=== PATIENT | female | born 1960 | race Caucasian/White ===

== ENCOUNTER → 2016-08-13 | Outpatient (REF) | payer OTHER ==
[2016-08-13 18:15] LABS: ALKALINE PHOSPHATASE 40 U/L (45-117); ALT/SGPT 60 U/L (12-78); ANION GAP 8 MEQ/L (8-16); AST/SGOT 34 U/L (15-37); BILIRUBIN,TOTAL 0.3 MG/DL (0.2-1.0); BLOOD UREA NITROGEN 15 MG/DL (7-18); CALCIUM LEVEL 9.3 MG/DL (8.5-10.1); CARBON DIOXIDE LEVEL 30 MEQ/L (21-32); CHLORIDE LEVEL 93 MEQ/L (98-107); CREATININE FOR GFR 0.69 MG/DL (0.55-1.02); GLOMERULAR FILTRATION RATE > 60.0 (>51); GLUCOSE, FASTING 87 MG/DL (70-105); POTASSIUM SERUM 4.1 MEQ/L (3.5-5.1); SODIUM LEVEL 131 MEQ/L (136-145); TOTAL PROTEIN 6.5 GM/DL (6.4-8.2)
== END ==
LOC: M LABNEURO 16:45
PROVIDERS: ATTEND Psychiatry & Neurology Neurology
DX: Z51.81 Encounter for therapeutic drug level monitoring (principal)

== ENCOUNTER → 2016-10-15 | Outpatient (REF) | payer OTHER | LOC: M LAB REF 13:31 | PROVIDERS: ATTEND Nurse Practitioner Adult Health | DX: G43.009 Migraine without aura, not intractable, without status migrainosus (principal) ==

== ENCOUNTER → 2016-10-23 | Outpatient (REF) | payer OTHER | LOC: M LAB REF 13:25 | PROVIDERS: ATTEND Internal Medicine | DX: G43.009 Migraine without aura, not intractable, without status migrainosus (principal) ==

== ENCOUNTER → 2016-10-30 | Outpatient (REF) | payer OTHER | LOC: M LAB REF 17:24 | PROVIDERS: ATTEND Nurse Practitioner Adult Health | DX: E87.1 Hypo-osmolality and hyponatremia (principal) ==

== ENCOUNTER 2017-06-24 12:54 | Inpatient (IN) | payer OTHER ==
[2017-06-24] MEDS: NS 1,000 ML IV ×4 (13:15→17:50)
[2017-06-24 14:01] LABS: EOS % 0.6 % (0.0-3.0); HEMATOCRIT 31.8 % (36.0-47.0); IMMATURE GRANULOCYTE % 2.2 % (0-3.0); MEAN CORPUSCULAR HEMOGLOBIN 32.6 pg (27.0-33.0); MEAN CORPUSCULAR HGB CONC 34.6 g/dl (32.0-36.5); MEAN CORPUSCULAR VOLUME 94.4 fl (80.0-96.0); MONO # 0.1 10^3/uL (0.0-0.8); MONO % 3.9 % (0.0-5.0); NEUTROPHILS # 1.6 10^3/uL (1.8-7.7); NEUTROPHILS % 88.3 % (36.0-66.0); PLATELET COUNT, AUTOMATED 104 10^3/uL (150-450); RED BLOOD COUNT 3.37 10^6/uL (4.00-5.40); RED CELL DISTRIBUTION WIDTH 13.2 % (11.5-14.5)
[2017-06-24 14:25] LABS: ALBUMIN 2.8 GM/DL (3.2-5.2); ALBUMIN/GLOBULIN RATIO 1.33 (1.00-1.93); ALKALINE PHOSPHATASE 43 U/L (45-117); ALT/SGPT 94 U/L (12-78); ANION GAP 7 MEQ/L (8-16); AST/SGOT 93 U/L (7-37); BILIRUBIN,DIRECT 0.1 MG/DL (0.0-0.2); BILIRUBIN,TOTAL 0.4 MG/DL (0.2-1.0); BLOOD UREA NITROGEN 11 MG/DL (7-18); CALCIUM LEVEL 8.1 MG/DL (8.5-10.1); CARBON DIOXIDE LEVEL 24 MEQ/L (21-32); CHLORIDE LEVEL 102 MEQ/L (98-107); CREATININE FOR GFR 0.73 MG/DL (0.55-1.30); GLOMERULAR FILTRATION RATE > 60.0 (>51); GLUCOSE, FASTING 86 MG/DL (70-100); LIPASE 223 U/L (73-393); POTASSIUM SERUM 3.6 MEQ/L (3.5-5.1); SODIUM LEVEL 133 MEQ/L (136-145); TOTAL PROTEIN 4.9 GM/DL (6.4-8.2)
[2017-06-24 14:30] LABS: LYMPH # 0.1 10^3/uL (1.5-4.5); POS COUNT POS FLAG; POSITIVE DIFF POS FLAG; WHITE BLOOD COUNT 1.8 10^3/uL (4.0-10.0)
[2017-06-24 15:22] LABS: LACTIC ACID SEPSIS PROTOCOL 3.7 MMOL/L (0.4-2.0)
[2017-06-24 16:05] LABS: ABG BASE EXCESS -5.9 (-2.0-2.0); ABG O2 SATURATION 89.1 % (95.0-99.0); ABG PARTIAL PRESSURE CO2 30.5 mmHg (35.0-45.0); ABG PARTIAL PRESSURE O2 59.2 mmHg (75.0-100.0); ABG STANDARD HCO3 19.5 MEQ/L (22.0-26.0)
[2017-06-24] MEDS: PROMETHAZINE INJ 25 MG/ML VIAL (J2550) IV (16:15)
[2017-06-24] MEDS: IMIPENEM/CILASTATIN 500 MG in D5W MINI-BAG PLUS 100 ML IV (16:15)
[2017-06-24] MEDS: NS 500 ML IV (16:16)
[2017-06-24] MEDS ORDERED: ISOVUE-370 76% 100ML VIAL (Q9967) As Ordered (16:17)
[2017-06-24 16:47] LABS: CK-MB VALUE MASS 2.4 NG/ML (<3.6); CPK CREATINE PHOSPHOKINASE 92 U/L (26-192); TROPONIN I < 0.02 NG/ML (< 0.10)
[2017-06-24 18:27] LABS: APPEARANCE, URINE HAZY (CLEAR); BACTERIA, URINE AUTO NEGATIVE (NEGATIVE); BILIRUBIN, URINE AUTO NEGATIVE (NEGATIVE); BLOOD, URINE BLOOD 1+ (NEGATIVE); COLOR, URINE YELLOW (YELLOW); GLUCOSE, URINE (UA) AUTO NEGATIVE (NEGATIVE); KETONE, URINE AUTO NEGATIVE (NEGATIVE); LEUKOCYTE ESTERASE, URINE AUTO NEGATIVE (NEGATIVE); MUCUS, URINE SMALL (NEGATIVE); NITRITE, URINE AUTO NEGATIVE (NEGATIVE); PROTEIN, URINE AUTO NEGATIVE (NEGATIVE); RBC, URINE AUTO 1 /HPF (0-3); SPECIFIC GRAVITY URINE AUTO 1.032 (1.002-1.035); SQUAMOUS EPITHELIAL CELL UR AU 0 /HPF (0-6); UROBILINOGEN, URINE AUTO 0.2 mg/dL (0.0-2.0); WBC, URINE AUTO 1 /HPF (0-3)
[2017-06-24 19:22] LABS: C REACTIVE PROTEIN QUANTITATIV 3.46 MG/DL (0.00-0.30); CK-MB VALUE MASS 4.4 NG/ML (<3.6); CPK CREATINE PHOSPHOKINASE 96 U/L (26-192); MB/CK RELATIVE INDEX 4.58 (< OR =4)
[2017-06-24] MEDS: ONDANSETRON 4MG/2ML VIAL (J2405) IV (20:13)
[2017-06-24] MEDS: LevoFLOXacin IV 750 MG in APPROPRIATE DILUENT 1 EA IV (20:14)
[2017-06-24] MEDS: ACETAMINOPHEN TAB 650MG DOSE (2X325MG) PO (20:14)
[2017-06-24] MEDS: HYDROCORTISONE 100 MG/2 ML VIAL (J1720) IV (20:14)
[2017-06-24] MEDS: VANCOMYCIN HCL 1,000 MG, VIAL MATE ADAPTER 1 EACH in D5W 250 ML IV (23:00)
[2017-06-24 23:42] LABS: BEDSIDE GLUCOSE 120 MG/DL (70-105)
[2017-06-25] MEDS: NS 1,000 ML IV (00:30)
[2017-06-25] MEDS: MONTELUKAST 10 MG TAB PO ×2 (02:48→20:04)
[2017-06-25] MEDS: OMEGA-3 1050MG CAPSULE PO ×2 (02:49→09:22)
[2017-06-25] MEDS: DIVALPROEX 500 MG TAB PO ×2 (02:49→20:04)
[2017-06-25] MEDS: PRAVASTATIN 20 MG TAB PO ×2 (02:49→20:05)
[2017-06-25] MEDS: ASCORBIC ACID 250 MG TAB PO ×3 (02:49→20:04)
[2017-06-25 05:04] LABS: HEMATOCRIT 33.7 % (36.0-47.0); HEMOGLOBIN 11.6 g/dl (12.0-15.5); MEAN CORPUSCULAR HEMOGLOBIN 32.3 pg (27.0-33.0); MEAN CORPUSCULAR HGB CONC 34.4 g/dl (32.0-36.5); MEAN CORPUSCULAR VOLUME 93.9 fl (80.0-96.0); PLATELET COUNT, AUTOMATED 101 10^3/uL (150-450); RED BLOOD COUNT 3.59 10^6/uL (4.00-5.40); RED CELL DISTRIBUTION WIDTH 13.2 % (11.5-14.5); WHITE BLOOD COUNT 4.2 10^3/uL (4.0-10.0)
[2017-06-25 05:26] LABS: ALBUMIN 2.4 GM/DL (3.2-5.2); ALKALINE PHOSPHATASE 38 U/L (45-117); ALT/SGPT 78 U/L (12-78); ANION GAP 5 MEQ/L (8-16); AST/SGOT 58 U/L (7-37); BILIRUBIN,TOTAL 0.4 MG/DL (0.2-1.0); BLOOD UREA NITROGEN 8 MG/DL (7-18); C REACTIVE PROTEIN QUANTITATIV 9.42 MG/DL (0.00-0.30); CALCIUM LEVEL 7.3 MG/DL (8.5-10.1); CARBON DIOXIDE LEVEL 27 MEQ/L (21-32); CHLORIDE LEVEL 104 MEQ/L (98-107); CREATININE FOR GFR 0.69 MG/DL (0.55-1.30); GLOMERULAR FILTRATION RATE > 60.0 (>51); GLUCOSE, FASTING 103 MG/DL (70-100); MAGNESIUM LEVEL 1.7 MG/DL (1.8-2.4); POTASSIUM SERUM 3.8 MEQ/L (3.5-5.1); SODIUM LEVEL 136 MEQ/L (136-145); TOTAL PROTEIN 4.8 GM/DL (6.4-8.2)
[2017-06-25] MEDS: MAG SULF 1GM/100ML (MAG RUN) 1 GM in APPROPRIATE DILUENT 1 EA IV ×2 (06:15→09:21)
[2017-06-25 06:18] LABS: CK-MB VALUE MASS 13.9 NG/ML (<3.6); CPK CREATINE PHOSPHOKINASE 534 U/L (26-192)
[2017-06-25 06:20] LABS: TROPONIN I 1.96 NG/ML (< 0.10)
[2017-06-25 07:30] LABS: THYROID STIMULATING HORMONE 0.781 uIU/ML (0.358-3.740)
[2017-06-25] MEDS: ENOXAPARIN 30 MG/0.3 ML SYR (J1650) SC (09:21)
[2017-06-25] MEDS: SODIUM CHLORIDE NASAL 0.65% SPRAY BTL (OCEAN) (09:22)
[2017-06-25] MEDS: ASPIRIN 81 MG ENTERIC TAB PO (09:23)
[2017-06-25] MEDS: LORATADINE 10 MG TAB PO (09:23)
[2017-06-25] MEDS: CitaloPRAM (CeleXA) 20 MG TAB PO (09:23)
[2017-06-25] MEDS: VITAMIN D 1,000 INTERNATIONAL UNITS TABLET PO (09:23)
[2017-06-25] MEDS: DIVALPROEX 250 MG TAB PO (09:24)
[2017-06-25] MEDS: OCUVITE 1 TAB PO (09:24)
[2017-06-25 09:39] LABS: LACTIC ACID SEPSIS PROTOCOL 1.8 MMOL/L (0.4-2.0)
[2017-06-25 11:09] LABS: CK-MB VALUE MASS 12.7 NG/ML (<3.6); CPK CREATINE PHOSPHOKINASE 514 U/L (26-192); MB/CK RELATIVE INDEX 2.47 (< OR =4)
[2017-06-25 11:13] LABS: TROPONIN I 1.74 NG/ML (< 0.10)
[2017-06-25] MEDS: ACETAMINOPHEN TAB 650MG DOSE (2X325MG) PO ×2 (12:34→20:04)
[2017-06-25] MEDS: LevoFLOXacin IV 750 MG in APPROPRIATE DILUENT 1 EA IV (17:18)
[2017-06-25] MEDS: VANCOMYCIN HCL 1,000 MG, VIAL MATE ADAPTER 1 EACH in D5W 250 ML IV (21:29)
[2017-06-26] MEDS: ACETAMINOPHEN TAB 650MG DOSE (2X325MG) PO ×3 (04:02→14:51)
[2017-06-26 05:26] LABS: HEMATOCRIT 30.3 % (36.0-47.0); HEMOGLOBIN 10.6 g/dl (12.0-15.5); MEAN CORPUSCULAR HEMOGLOBIN 32.3 pg (27.0-33.0); MEAN CORPUSCULAR VOLUME 92.4 fl (80.0-96.0); PLATELET COUNT, AUTOMATED 125 10^3/uL (150-450); RED BLOOD COUNT 3.28 10^6/uL (4.00-5.40); RED CELL DISTRIBUTION WIDTH 13.5 % (11.5-14.5)
[2017-06-26 05:47] LABS: C REACTIVE PROTEIN QUANTITATIV 5.29 MG/DL (0.00-0.30)
[2017-06-26] MEDS: VANCOMYCIN HCL 1,000 MG, VIAL MATE ADAPTER 1 EACH in D5W 250 ML IV ×3 (05:49→21:28)
[2017-06-26 05:52] LABS: ALBUMIN 2.5 GM/DL (3.2-5.2); ALBUMIN/GLOBULIN RATIO 1.09 (1.00-1.93); ALKALINE PHOSPHATASE 39 U/L (45-117); ALT/SGPT 64 U/L (12-78); ANION GAP 6 MEQ/L (8-16); AST/SGOT 39 U/L (7-37); BILIRUBIN,TOTAL 0.2 MG/DL (0.2-1.0); BLOOD UREA NITROGEN 6 MG/DL (7-18); CALCIUM LEVEL 7.8 MG/DL (8.5-10.1); CARBON DIOXIDE LEVEL 27 MEQ/L (21-32); CHLORIDE LEVEL 107 MEQ/L (98-107); CREATININE FOR GFR 0.51 MG/DL (0.55-1.30); GLOMERULAR FILTRATION RATE > 60.0 (>51); GLUCOSE, FASTING 101 MG/DL (70-100); MAGNESIUM LEVEL 2.2 MG/DL (1.8-2.4); POTASSIUM SERUM 3.6 MEQ/L (3.5-5.1); SODIUM LEVEL 140 MEQ/L (136-145); TOTAL PROTEIN 4.8 GM/DL (6.4-8.2)
[2017-06-26] MEDS ORDERED: VANCOMYCIN HCL 1,000 MG, VIAL MATE ADAPTER 1 EACH in D5W 250 ML IV (06:00)
[2017-06-26] MEDS: LORATADINE 10 MG TAB PO (09:00)
[2017-06-26] MEDS: CitaloPRAM (CeleXA) 10 MG TABLET PO (09:00)
[2017-06-26] MEDS: PANTOPRAZOLE 20 MG TAB PO (09:00)
[2017-06-26] MEDS: SODIUM CHLORIDE NASAL 0.65% SPRAY BTL (OCEAN) (09:14)
[2017-06-26] MEDS: ASPIRIN 81 MG ENTERIC TAB PO (09:14)
[2017-06-26] MEDS: ASCORBIC ACID 250 MG TAB PO ×2 (09:14→21:34)
[2017-06-26] MEDS: ENOXAPARIN 30 MG/0.3 ML SYR (J1650) SC (09:14)
[2017-06-26] MEDS: SYMBICORT 80/4.5MCG INHALER 6GM INH ×2 (12:10→21:18)
[2017-06-26] MEDS: DOCUSATE SODIUM 100 MG CAP PO ×2 (14:26→21:28)
[2017-06-26] MEDS: LevoFLOXacin IV 750 MG in APPROPRIATE DILUENT 1 EA IV (18:36)
[2017-06-26] MEDS: FIORICET TAB PO (18:44)
[2017-06-26] MEDS: MONTELUKAST 10 MG TAB PO (21:00)
[2017-06-26] MEDS: DIVALPROEX 500 MG TAB PO (21:28)
[2017-06-26] MEDS: ONDANSETRON 4MG/2ML VIAL (J2405) IV (21:28)
[2017-06-26 21:43] LABS: VANCOMYCIN LEVEL TROUGH 11.4 UG/ML (10.0-20.0)
[2017-06-27] MEDS: VANCOMYCIN HCL 500 MG in D5W MINI-BAG PLUS 100 ML IV (02:37)
[2017-06-27] MEDS: VANCOMYCIN HCL 1,000 MG, VIAL MATE ADAPTER 1 EACH in D5W 250 ML IV (05:38)
[2017-06-27 06:06] LABS: HEMATOCRIT 33.3 % (36.0-47.0); HEMOGLOBIN 11.7 g/dl (12.0-15.5); MEAN CORPUSCULAR HEMOGLOBIN 32.1 pg (27.0-33.0); MEAN CORPUSCULAR HGB CONC 35.1 g/dl (32.0-36.5); MEAN CORPUSCULAR VOLUME 91.2 fl (80.0-96.0); PLATELET COUNT, AUTOMATED 180 10^3/uL (150-450); RED BLOOD COUNT 3.65 10^6/uL (4.00-5.40); RED CELL DISTRIBUTION WIDTH 13.2 % (11.5-14.5); WHITE BLOOD COUNT 5.8 10^3/uL (4.0-10.0)
[2017-06-27 06:26] LABS: ALBUMIN 2.6 GM/DL (3.2-5.2); ALBUMIN/GLOBULIN RATIO 0.93 (1.00-1.93); ALKALINE PHOSPHATASE 37 U/L (45-117); ALT/SGPT 53 U/L (12-78); ANION GAP 7 MEQ/L (8-16); AST/SGOT 25 U/L (7-37); BILIRUBIN,TOTAL 0.3 MG/DL (0.2-1.0); BLOOD UREA NITROGEN 5 MG/DL (7-18); C REACTIVE PROTEIN QUANTITATIV 2.27 MG/DL (0.00-0.30); CALCIUM LEVEL 8.3 MG/DL (8.5-10.1); CARBON DIOXIDE LEVEL 26 MEQ/L (21-32); CHLORIDE LEVEL 102 MEQ/L (98-107); GLOMERULAR FILTRATION RATE > 60.0 (>51); GLUCOSE, FASTING 99 MG/DL (70-100); MAGNESIUM LEVEL 1.9 MG/DL (1.8-2.4); POTASSIUM SERUM 3.8 MEQ/L (3.5-5.1); SODIUM LEVEL 135 MEQ/L (136-145); TOTAL PROTEIN 5.4 GM/DL (6.4-8.2)
[2017-06-27] MEDS: SYMBICORT 80/4.5MCG INHALER 6GM INH ×2 (07:52→21:26)
[2017-06-27] MEDS: ASCORBIC ACID 250 MG TAB PO ×2 (08:46→20:22)
[2017-06-27] MEDS: PANTOPRAZOLE 20 MG TAB PO (08:46)
[2017-06-27] MEDS: DOCUSATE SODIUM 100 MG CAP PO ×2 (08:46→20:22)
[2017-06-27] MEDS: ASPIRIN 81 MG ENTERIC TAB PO (08:46)
[2017-06-27] MEDS: LORATADINE 10 MG TAB PO (08:47)
[2017-06-27] MEDS: ENOXAPARIN 30 MG/0.3 ML SYR (J1650) SC (08:47)
[2017-06-27] MEDS: SODIUM CHLORIDE NASAL 0.65% SPRAY BTL (OCEAN) (08:47)
[2017-06-27] MEDS: CitaloPRAM (CeleXA) 10 MG TABLET PO (08:47)
[2017-06-27] MEDS: METOCLOPRAMIDE INJ 10MG/2ML VIAL (J2765) IV (09:40)
[2017-06-27] MEDS: diphenhydrAMINE INJ 50MG/ML VIAL (J1200) IV (09:40)
[2017-06-27] MEDS: KETOROLAC 30 MG/ML VIAL (J1885) IV (09:41)
[2017-06-27] MEDS: ACETAMINOPHEN TAB 650MG DOSE (2X325MG) PO ×2 (13:31→18:09)
[2017-06-27] MEDS: MONTELUKAST 10 MG TAB PO (20:22)
[2017-06-27] MEDS: DIVALPROEX 500 MG TAB PO (20:22)
[2017-06-28] MEDS: ACETAMINOPHEN TAB 650MG DOSE (2X325MG) PO (04:17)
[2017-06-28 06:20] LABS: HEMATOCRIT 32.2 % (36.0-47.0); HEMOGLOBIN 11.2 g/dl (12.0-15.5); MEAN CORPUSCULAR HEMOGLOBIN 32.2 pg (27.0-33.0); MEAN CORPUSCULAR HGB CONC 34.8 g/dl (32.0-36.5); MEAN CORPUSCULAR VOLUME 92.5 fl (80.0-96.0); PLATELET COUNT, AUTOMATED 195 10^3/uL (150-450); RED BLOOD COUNT 3.48 10^6/uL (4.00-5.40); RED CELL DISTRIBUTION WIDTH 13.4 % (11.5-14.5); WHITE BLOOD COUNT 5.3 10^3/uL (4.0-10.0)
[2017-06-28 06:42] LABS: ALBUMIN 2.7 GM/DL (3.2-5.2); ALBUMIN/GLOBULIN RATIO 1.04 (1.00-1.93); ALKALINE PHOSPHATASE 38 U/L (45-117); ALT/SGPT 51 U/L (12-78); ANION GAP 7 MEQ/L (8-16); AST/SGOT 25 U/L (7-37); BILIRUBIN,TOTAL 0.2 MG/DL (0.2-1.0); BLOOD UREA NITROGEN 8 MG/DL (7-18); C REACTIVE PROTEIN QUANTITATIV 1.13 MG/DL (0.00-0.30); CALCIUM LEVEL 8.4 MG/DL (8.5-10.1); CARBON DIOXIDE LEVEL 26 MEQ/L (21-32); CHLORIDE LEVEL 106 MEQ/L (98-107); CREATININE FOR GFR 0.54 MG/DL (0.55-1.30); GLOMERULAR FILTRATION RATE > 60.0 (>51); GLUCOSE, FASTING 88 MG/DL (70-100); MAGNESIUM LEVEL 2.2 MG/DL (1.8-2.4); POTASSIUM SERUM 3.8 MEQ/L (3.5-5.1); SODIUM LEVEL 139 MEQ/L (136-145); TOTAL PROTEIN 5.3 GM/DL (6.4-8.2)
[2017-06-28] MEDS: SYMBICORT 80/4.5MCG INHALER 6GM INH ×2 (08:01→20:55)
[2017-06-28] MEDS: ASPIRIN 81 MG ENTERIC TAB PO (08:36)
[2017-06-28] MEDS: CitaloPRAM (CeleXA) 10 MG TABLET PO (08:36)
[2017-06-28] MEDS: SODIUM CHLORIDE NASAL 0.65% SPRAY BTL (OCEAN) (08:36)
[2017-06-28] MEDS: ASCORBIC ACID 250 MG TAB PO ×2 (08:36→20:08)
[2017-06-28] MEDS: PANTOPRAZOLE 20 MG TAB PO (08:36)
[2017-06-28] MEDS: ENOXAPARIN 30 MG/0.3 ML SYR (J1650) SC (08:36)
[2017-06-28] MEDS: DOCUSATE SODIUM 100 MG CAP PO ×2 (08:36→20:08)
[2017-06-28] MEDS: LORATADINE 10 MG TAB PO (08:36)
[2017-06-28] MEDS: MIRALAX *UNIT DOSE* 17GM PACKET PO (09:00)
[2017-06-28] MEDS: SUMAtriptan SUCCINATE 6 MG/0.5 ML VIAL SC (10:31)
[2017-06-28] MEDS: DIVALPROEX 500 MG TAB PO (20:07)
[2017-06-28] MEDS: MONTELUKAST 10 MG TAB PO (20:07)
[2017-06-28] MEDS: ACETAMINOPHEN 500 MG TAB PO (21:17)
[2017-06-29] MEDS: ACETAMINOPHEN 500 MG TAB PO ×2 (04:07→12:15)
[2017-06-29] MEDS: ANALGESIC BALM CRM 120 GM TOP ×5 (04:30→20:19)
[2017-06-29 06:00] LABS: HEMATOCRIT 32.5 % (36.0-47.0); HEMOGLOBIN 11.2 g/dl (12.0-15.5); MEAN CORPUSCULAR HEMOGLOBIN 32.4 pg (27.0-33.0); MEAN CORPUSCULAR HGB CONC 34.5 g/dl (32.0-36.5); MEAN CORPUSCULAR VOLUME 93.9 fl (80.0-96.0); PLATELET COUNT, AUTOMATED 219 10^3/uL (150-450); RED BLOOD COUNT 3.46 10^6/uL (4.00-5.40); RED CELL DISTRIBUTION WIDTH 13.9 % (11.5-14.5); WHITE BLOOD COUNT 5.6 10^3/uL (4.0-10.0)
[2017-06-29 06:25] LABS: ALBUMIN 2.8 GM/DL (3.2-5.2); ALBUMIN/GLOBULIN RATIO 1.08 (1.00-1.93); ALKALINE PHOSPHATASE 37 U/L (45-117); ALT/SGPT 97 U/L (12-78); ANION GAP 7 MEQ/L (8-16); AST/SGOT 64 U/L (7-37); BILIRUBIN,TOTAL 0.3 MG/DL (0.2-1.0); BLOOD UREA NITROGEN 9 MG/DL (7-18); C REACTIVE PROTEIN QUANTITATIV 0.68 MG/DL (0.00-0.30); CALCIUM LEVEL 8.4 MG/DL (8.5-10.1); CARBON DIOXIDE LEVEL 26 MEQ/L (21-32); CHLORIDE LEVEL 106 MEQ/L (98-107); CREATININE FOR GFR 0.61 MG/DL (0.55-1.30); GLOMERULAR FILTRATION RATE > 60.0 (>51); GLUCOSE, FASTING 89 MG/DL (70-100); MAGNESIUM LEVEL 2.1 MG/DL (1.8-2.4); POTASSIUM SERUM 3.9 MEQ/L (3.5-5.1); SODIUM LEVEL 139 MEQ/L (136-145); TOTAL PROTEIN 5.4 GM/DL (6.4-8.2)
[2017-06-29] MEDS: SYMBICORT 80/4.5MCG INHALER 6GM INH ×2 (07:58→21:17)
[2017-06-29] MEDS: ENOXAPARIN 30 MG/0.3 ML SYR (J1650) SC (09:02)
[2017-06-29] MEDS: ASCORBIC ACID 250 MG TAB PO ×2 (09:02→20:19)
[2017-06-29] MEDS: PANTOPRAZOLE 20 MG TAB PO (09:02)
[2017-06-29] MEDS: LORATADINE 10 MG TAB PO (09:02)
[2017-06-29] MEDS: CitaloPRAM (CeleXA) 10 MG TABLET PO (09:02)
[2017-06-29] MEDS: ASPIRIN 81 MG ENTERIC TAB PO (09:02)
[2017-06-29] MEDS: DOCUSATE SODIUM 100 MG CAP PO ×2 (09:03→20:19)
[2017-06-29] MEDS: SODIUM CHLORIDE NASAL 0.65% SPRAY BTL (OCEAN) (09:03)
[2017-06-29] MEDS: MONTELUKAST 10 MG TAB PO (20:18)
[2017-06-29] MEDS: DIVALPROEX 500 MG TAB PO (20:19)
[2017-06-30] MEDS: ACETAMINOPHEN 500 MG TAB PO (00:19)
[2017-06-30 06:29] LABS: HEMATOCRIT 33.4 % (36.0-47.0); HEMOGLOBIN 11.3 g/dl (12.0-15.5); MEAN CORPUSCULAR HEMOGLOBIN 31.6 pg (27.0-33.0); MEAN CORPUSCULAR HGB CONC 33.8 g/dl (32.0-36.5); MEAN CORPUSCULAR VOLUME 93.3 fl (80.0-96.0); PLATELET COUNT, AUTOMATED 241 10^3/uL (150-450); RED BLOOD COUNT 3.58 10^6/uL (4.00-5.40); RED CELL DISTRIBUTION WIDTH 13.9 % (11.5-14.5); WHITE BLOOD COUNT 6.3 10^3/uL (4.0-10.0)
[2017-06-30 06:46] LABS: ALBUMIN/GLOBULIN RATIO 1.07 (1.00-1.93); ALKALINE PHOSPHATASE 41 U/L (45-117); ALT/SGPT 99 U/L (12-78); ANION GAP 5 MEQ/L (8-16); AST/SGOT 52 U/L (7-37); BILIRUBIN,TOTAL 0.2 MG/DL (0.2-1.0); BLOOD UREA NITROGEN 12 MG/DL (7-18); CALCIUM LEVEL 8.5 MG/DL (8.5-10.1); CARBON DIOXIDE LEVEL 25 MEQ/L (21-32); CHLORIDE LEVEL 106 MEQ/L (98-107); CREATININE FOR GFR 0.61 MG/DL (0.55-1.30); GLOMERULAR FILTRATION RATE > 60.0 (>51); GLUCOSE, FASTING 92 MG/DL (70-100); POTASSIUM SERUM 4.3 MEQ/L (3.5-5.1); SODIUM LEVEL 136 MEQ/L (136-145); TOTAL PROTEIN 5.8 GM/DL (6.4-8.2)
[2017-06-30] MEDS: SYMBICORT 80/4.5MCG INHALER 6GM INH (07:25)
[2017-06-30] MEDS: DOCUSATE SODIUM 100 MG CAP PO (08:08)
[2017-06-30] MEDS: ASCORBIC ACID 250 MG TAB PO (08:08)
[2017-06-30] MEDS: PANTOPRAZOLE 20 MG TAB PO (08:08)
[2017-06-30] MEDS: ASPIRIN 81 MG ENTERIC TAB PO (08:08)
[2017-06-30] MEDS: LORATADINE 10 MG TAB PO (08:09)
[2017-06-30] MEDS: CitaloPRAM (CeleXA) 10 MG TABLET PO (08:09)
[2017-06-30] MEDS: ENOXAPARIN 30 MG/0.3 ML SYR (J1650) SC (08:09)
[2017-06-30] MEDS: SODIUM CHLORIDE NASAL 0.65% SPRAY BTL (OCEAN) (08:10)
[2017-06-30] MEDS: ANALGESIC BALM CRM 120 GM TOP (08:10)
== END 2017-06-30 11:29 | disposition home or self-care (01) | DRG 640 ==
LOC: M ICU 06-25 00:12 → M MSPAV 06-26 15:32 → M OR 06-25 09:52 → M ICU 06-25 10:02 → M ED 12:54 → M ED INP 17:50
DX: E86.1 Hypovolemia (principal); G93.41 Metabolic encephalopathy; I95.9 Hypotension, unspecified; E87.2 Acidosis; R79.89 Other specified abnormal findings of blood chemistry; G43.909 Migraine, unspecified, not intractable, without status migrainosus; G47.33 Obstructive sleep apnea (adult) (pediatric); E78.5 Hyperlipidemia, unspecified; H81.09 Meniere's disease, unspecified ear; M35.00 Sjogren syndrome, unspecified; N32.81 Overactive bladder; Z79.82 Long term (current) use of aspirin; Z79.899 Other long term (current) drug therapy; Z88.1 Allergy status to other antibiotic agents; Z88.2 Allergy status to sulfonamides; Z87.440 Personal history of urinary (tract) infections; Z99.89 Dependence on other enabling machines and devices

== ENCOUNTER 2017-07-23 14:53 | Emergency (ER) | payer OTHER ==
[2017-07-23 17:13] LABS: HEMATOCRIT 41.7 % (36.0-47.0); HEMOGLOBIN 14.5 g/dl (12.0-15.5); MEAN CORPUSCULAR HEMOGLOBIN 32.4 pg (27.0-33.0); MEAN CORPUSCULAR HGB CONC 34.8 g/dl (32.0-36.5); MEAN CORPUSCULAR VOLUME 93.1 fl (80.0-96.0); PLATELET COUNT, AUTOMATED 206 10^3/uL (150-450); RED BLOOD COUNT 4.48 10^6/uL (4.00-5.40); RED CELL DISTRIBUTION WIDTH 13.3 % (11.5-14.5); WHITE BLOOD COUNT 5.9 10^3/uL (4.0-10.0)
[2017-07-23] MEDS: NS 1,000 ML IV (17:20)
[2017-07-23] MEDS: KETOROLAC 30 MG/ML VIAL (J1885) IV (18:18)
[2017-07-23] MEDS: METOCLOPRAMIDE INJ 10MG/2ML VIAL (J2765) IV (18:18)
[2017-07-23] MEDS: diphenhydrAMINE INJ 50MG/ML VIAL (J1200) IV (18:19)
[2017-07-23 18:23] LABS: ANION GAP 5 MEQ/L (8-16); BLOOD UREA NITROGEN 9 MG/DL (7-18); CALCIUM LEVEL 8.9 MG/DL (8.5-10.1); CARBON DIOXIDE LEVEL 27 MEQ/L (21-32); CHLORIDE LEVEL 99 MEQ/L (98-107); CREATININE FOR GFR 0.63 MG/DL (0.55-1.30); GLOMERULAR FILTRATION RATE > 60.0 (>51); GLUCOSE, FASTING 94 MG/DL (70-100); POTASSIUM SERUM 4.2 MEQ/L (3.5-5.1); SODIUM LEVEL 131 MEQ/L (136-145)
== END 2017-07-23 19:40 | disposition home or self-care (01) ==
LOC: M ED 14:53
DX: G43.909 Migraine, unspecified, not intractable, without status migrainosus (principal); B00.9 Herpesviral infection, unspecified; E78.00 Pure hypercholesterolemia, unspecified; Z88.0 Allergy status to penicillin; Z88.8 Allergy status to other drugs, medicaments and biological substances; Z88.1 Allergy status to other antibiotic agents; Z88.2 Allergy status to sulfonamides; Z79.51 Long term (current) use of inhaled steroids; Z79.82 Long term (current) use of aspirin
CPT/HCPCS: J1200

== ENCOUNTER 2017-12-09 08:08 | Outpatient (RCR) | payer OTHER | END 2017-12-13 | LOC: M CR 08:08 | DX: I21.4 Non-ST elevation (NSTEMI) myocardial infarction (principal) | CPT/HCPCS: 93798 ==

== ENCOUNTER 2017-12-14 13:48 | Outpatient (RCR) | payer OTHER | END 2018-01-13 | LOC: M CR 13:48 | DX: I21.4 Non-ST elevation (NSTEMI) myocardial infarction (principal) | CPT/HCPCS: 93798 ==

== ENCOUNTER 2018-01-14 15:01 | Outpatient (RCR) | payer OTHER | END 2018-02-12 | LOC: M CR 15:01 | DX: I21.4 Non-ST elevation (NSTEMI) myocardial infarction (principal) ==

== ENCOUNTER 2018-01-28 08:04 | Day surgery (SDC) | payer OTHER ==
[~2018-01-28 08:04] MED LIST: LIDOCAINE 2% INJ 100 MG/5 ML SDV (FOR ANES.) As Ordered; MIDAZOLAM INJ 2 MG/2 ML VIAL (J2250) As Ordered; PROPOFOL 200 MG/20 ML VIAL As Ordered; ROCURONIUM BROMIDE 50 MG/5 ML VIAL As Ordered; fentaNYL 250 MCG/5 ML INJECTION (J3010) As Ordered
[2018-01-28] MEDS: LR 1,000 ML IV (08:15)
[2018-01-28] MEDS ORDERED: GLYCOPYRROLATE INJ 0.2 MG/ML 2 ML VIAL As Ordered (11:28)
[2018-01-28] MEDS ORDERED: NEOSTIGMINE 10 MG/10 ML VIAL (J2710) As Ordered (11:28)
[2018-01-28] MEDS ORDERED: KETOROLAC 60 MG/2 ML VIAL (J1885) As Ordered (11:37)
[2018-01-28] MEDS ORDERED: dexameTHASONE 4 MG/ML 1ML VIAL (J1100) As Ordered ×2 (11:37)
[2018-01-28] MEDS ORDERED: METOCLOPRAMIDE INJ 10MG/2ML VIAL (J2765) As Ordered (11:37)
[2018-01-28] MEDS ORDERED: ONDANSETRON 4MG/2ML VIAL (J2405) As Ordered (11:37)
[2018-01-28] MEDS: BUPIVACAINE LIPOSOME/PF 1.3% 20ML VIAL (13.3MG/ML)(EXPAREL)(C9290 PER1MG) As Ordered (11:58)
[2018-01-28] MEDS: BUPIVACAINE HCL 0.25% 30 ML VIAL As Ordered (11:58)
[2018-01-28] MEDS ORDERED: HYDROMORPHONE HCL 0.5 MG/ 0.5 ML SYRINGE (J1170 PER 1) IV (12:45)
[2018-01-28] MEDS ORDERED: IBUPROFEN 400 MG TAB PO (12:45)
[2018-01-28] MEDS ORDERED: LR 1,000 ML IV (12:45)
[2018-01-28] MEDS ORDERED: ACETAMINOPHEN TAB 650MG DOSE (2X325MG) PO (12:45)
[2018-01-28] MEDS ORDERED: ONDANSETRON 4MG/2ML VIAL (J2405) IV (12:45)
[2018-01-28] MEDS ORDERED: fentaNYL 100 MCG/2 ML INJECTION (J3010) IV (12:45)
[2018-01-28] MEDS ORDERED: NORCO, ANEXSIA 5/325MG TABLET (HYDROcodone/ACETAMINOPHEN) PO (13:00)
[2018-01-28] MEDS: PERCOCET 5MG/325MG TAB PO (13:02)
== END 2018-01-28 14:35 | disposition home or self-care (01) ==
LOC: M SDC 08:04
DX: K42.9 Umbilical hernia without obstruction or gangrene (principal); K43.9 Ventral hernia without obstruction or gangrene; G47.33 Obstructive sleep apnea (adult) (pediatric); I27.0 Primary pulmonary hypertension; J45.20 Mild intermittent asthma, uncomplicated; E78.00 Pure hypercholesterolemia, unspecified; I25.2 Old myocardial infarction; H81.09 Meniere's disease, unspecified ear; M35.00 Sjogren syndrome, unspecified; M26.609 Unspecified temporomandibular joint disorder, unspecified side; K21.9 Gastro-esophageal reflux disease without esophagitis; M12.9 Arthropathy, unspecified; G43.909 Migraine, unspecified, not intractable, without status migrainosus; Z88.1 Allergy status to other antibiotic agents; Z88.2 Allergy status to sulfonamides; Z79.899 Other long term (current) drug therapy; Z79.82 Long term (current) use of aspirin; Z98.51 Tubal ligation status
CPT/HCPCS: 49652

== ENCOUNTER 2018-03-01 14:21 | Outpatient (RCR) | payer OTHER ==
[~2018-03-01 14:21] MED LIST changes: +ASCO25TA PO; +ASPI1TAB PO; +AZEL0.055; +BREO1INH3 INH; +CALC600T60 PO; +CITA20TA4 PO; +CLAR10CA3 PO; +CO Q200C10 PO; +CRAN500C2 PO; +CRES10TA32 PO; +DEPA250T32 PO; +DIVA500T94 PO; +ESTR10TA PV; +ESTRTAB11 PO; +FAMC250T3 PO; +FISH100049 PO; +GALZ50CA PO; +HYDR200T3 PO; +KETO10TAB PO; -LIDOCAINE 2% INJ 100 MG/5 ML SDV (FOR ANES.) As Ordered; +MAGN400C2 PO; +MAXZTAB PO; -MIDAZOLAM INJ 2 MG/2 ML VIAL (J2250) As Ordered; +MONT10TA2 PO; +MULT1TAB9 PO; +NORCOTAB PO; +PRAV40TA2 PO; +PROBCAP4 PO; +PROP10TA56 PO; -PROPOFOL 200 MG/20 ML VIAL As Ordered; +RABE1TAB PO; -ROCURONIUM BROMIDE 50 MG/5 ML VIAL As Ordered; +SALI0.6528; +SING5CHW23 PO; +SUPE1TAB PO; +TRIA37.5 PO; +TRIA50CA4 PO; +VITA100T98 PO; +VITA30004 PO; +ZOFR4TAB14 PO; -fentaNYL 250 MCG/5 ML INJECTION (J3010) As Ordered; +zyrtec PO
--- NOTE | 2018-03-01 15:07 | CARECAPL ---
Assessment Account #s: Re-Assessment II (DISCHARGE) General Diagnoses: STEMI Date of event: Jun 25, 2017 Physician: Sedrick Hopkins Allergies: Coded Allergies: Amoxicillin (Verified Allergy, Unknown, 06/21/17) Clavulanic Acid (Verified Allergy, Unknown, 06/21/17) Sulfa Antibiotics (Verified Allergy, Unknown, 06/21/17) Date Entered Program: Dec 09, 2017 Risk strat for cardiac event: Low Exercise Assessment: Followup/Discharge Exercise Prescription Plan TO EDUCATE AND BUILD ENDURANCE THROUGH MONITORED EXERCISE Modalities initiated: Treadmill (METS=4.12/RPE=2), Cardio-Strider (METS=2.6/RPE=2), Nustep (METS=3.0/RPE=4), Arm Aerometer (METS=3.5/RPE=2.5), Dumbells (5#/RPE=3) Frequency: 3 Duration (Minutes) 30-60 minutes total exercise a day. 10-15 work intervals in minutes. 5 MINUTES PRN rest intervals in minutes. Functional Capacity Goal Sustained Metabolic Equivalent of a task (MET) goal of 3.75-4.5 for 15-20 minutes. Intensity: 3-Moderate Progression (METS) Increase by: METS every: sessions Angina with ex: No Target Heart Rate 96-128 PER AGE PREDICTED Resistance Training: Yes Weight (pounds): 5 Reps: 12-15 Hypertension: Yes Hypertension controlled with: Medication Resting 138/80 Peak Exercise BP 148/80 Medications Scheduled (Multivitamin Adults 50+), 1 TAB PO DAILY, (Reported) (Super B-Complex), 1 TAB PO DAILY, (Reported) (Rabeprazole Sodium), 20 MG PO DAILY, (Reported) (Estroven Maximum Strength), 1 TAB PO DAILY, (Reported) (Saline Nasal [place]), 2 SPRAYS NA DAILY, (Reported) (Co Q-10), 200 MG PO BID, (Reported) Ascorbic Acid (Vitamin C), 250 MG PO BID, (Reported) Aspirin (Aspirin 81), 81 MG PO DAILY, (Reported) Calcium Carbonate (Calcium), 600 MG PO QHS, (Reported) Cholecalciferol (Vitamin D3), 3,000 UNIT PO DAILY, (Reported) Cranberry Extract (Cranberry), 500 MG PO QHS, (Reported) Fish Oil (Fish Oil 1000 mg), 1 CAP PO TID, (Reported) Fluticasone/Vilanterol (Breo Ellipta 200-25 Mcg/INH), 1 PUFF INH DAILY, (Reported) Hydroxychloroquine Sulfate (Hydroxychloroquine Sulfat), 200 MG PO BID, (Reported) Montelukast Sodium (Montelukast Sodium), 10 MG PO QHS, (Reported) Riboflavin (Vitamin B-2), 100 MG PO BID, (Reported) Rosuvastatin (Crestor), 10 MG PO DAILY, (Reported) Zinc Acetate (Galzin), 50 MG PO DAILY, (Reported) [zyrtec], 10 MG PO DAILY, (Reported) Scheduled PRN (Magnesium), 400 MG PO DAILY PRN for MIGRAINE, (Reported) Acetaminophen/Hydrocodone (Pendergrass, Anexsia 5/325), 1 TAB PO Q4HP PRN for PAIN SCALE 6-10 Famciclovir (Famciclovir), 250 MG PO BIDP PRN for RASH, (Reported) Ketorolac Tromethamine (Ketorolac Tromethamine), 10 MG PO Q6HP PRN for pain Current BP 120/82 Med Change: No Intervention Resistance Training: Yes Education: Self pulse, Ex safety, S/S to report, Low NA diet, BP medication, RPE Scale, Equipment orientation, warm up/cool down, Understand BP, Physical Active Education Goals Met: Yes Target Goals Individual exercise Rx (1) BP 140/90 or 130/80 if DM or CKD (1) Aerobic active 30+min 5 days per week (1) Nutrition Date: Mar 01, 2018 Assessment: Followup/Discharge Lipid- med/supplement CRESTOR 10 MG DAILY Med Change: No Diabetes Diabetes: No Monitor Blood Sugar at home: No Medication Change: No Blood sugar in range: No Weight Management Weight (lbs): 151.6 Special Diet: low salt, low-fat Vitamin/Supplements: Multivitamin, Vitamin B, Vitamin C, Vitamin D Alcohol: special Current Weight (pounds): 151.6 Intervention 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 Nurse/patient discussion: Yes Dietary Goals TO MAKE BETTER CHOICES IN HER DIET Diet Class: No Referral to Diabetes education: No Referral to lipid clinic: No Referral to weight mangement p: No Education Eating Healthy Education Goals Met: Yes Target goal LDL-C<100 if triglycerides are >200 Non-HDL-C should be <130 (1) LDL-C<70 for high risk patients (4) HbA1c<7% (1) BMI<25 Waist cir<40in M/<35in F (1) Education Date: Mar 01, 2018 Assessment: Followup/Discharge Knowledge Test Score: 10 Family Support: Yes Tobacco use: No Tobacco Use Smokeless tobacco: No Intervention Referral to smoking cessation: No Individual education and couns: No Tobacco Adjunct: No Education class schedule given: No Attended education classes: No Education: CAD, Risk factors, med compliance, cardiac A&P, Angina S/S, Sexuality Education Goals Met: Yes Target Goals Complete cessation of tobacco use (1). Psychosocial Date: Mar 01, 2018 Assessment: Followup/Discharge Psych Test (Initial/Discharge) Tool Used: CESD Score: 0 Intervention Physician Consult: No Physician Referral: No Med Change: No Stress Management Class: No Uses Stress Management Skills: Yes Education Education: Coping Techniques, S/S depression, Relaxation Techniques Education Goals Met: Yes Target Goal Assess presence or absence of depression using a valid screening tool (1). Maximize coping skills (2). Positive support system (2). Patient/Program Goal Preventative Medication: Yes Aspirin, Yes Statin/OTR lipid Lowering Fall Risk Assess: Yes (NOT A FALL RISK) Provider Assessment Session Number: [id number] Ronald Carrion RN Mar 01, 2018 15:07
== END 2018-03-15 ==
LOC: M CR 14:21
PROVIDERS: ATTEND Internal Medicine
DX: I21.4 Non-ST elevation (NSTEMI) myocardial infarction (principal)

== ENCOUNTER 2018-03-05 10:00 | Outpatient (RCR) | payer OTHER | END 2018-03-15 | LOC: M CR 10:00 | PROVIDERS: ATTEND Internal Medicine | DX: I21.4 Non-ST elevation (NSTEMI) myocardial infarction (principal) ==

== ENCOUNTER → 2018-05-14 | Outpatient (REF) | payer OTHER | LOC: M LAB REF 12:24 | PROVIDERS: ATTEND Nurse Practitioner Adult Health | DX: M54.2 Cervicalgia (principal) ==

== ENCOUNTER → 2018-09-14 | Day surgery (SDC) | payer OTHER ==
[~2018-09-14] VITALS: Ht 162.6 cm; Wt 62.6 kg
[~2018-09-14] MED LIST changes: -ASCO25TA PO; -ASPI1TAB PO; +ASPI81TA26 PO; +ASTE0.15; -CITA20TA4 PO; +CITA20TA6 PO; +CRES10TA PO; -CRES10TA32 PO; +CVS500CA5 PO; +FISH1000 PO; +HYDR-3715 PO; +LIDOCAINE 2% INJ 100 MG/5 ML SDV (FOR ANES.) As Ordered ONE; +MULTTAB86 PO; -NORCOTAB PO; +NS 1,000 ML IV ONE; +PROPOFOL 200 MG/20 ML VIAL As Ordered ONE; +SUPETAB56 PO; +VITA1TAB23 PO; +ZYRTTAB8 PO
[2018-09-14 12:41] VITALS: BP 117/72
--- NOTE | 2018-09-14 12:55 | ROOR ---
Patient Name: Maggie Wayne Procedure Date: 09/14/2018 11:45 AM Date of : 1960 Age: 58 Room: [facility] Gender: Female Note Status: Finalized Procedure: Colonoscopy Indications: Screening for colorectal malignant neoplasm, Last colonoscopy 10 years ago Providers: Harsh Colmenares MD Referring MD: Mari Villegas NP Requesting Provider: Medicines: Monitored Anesthesia Care Complications: No immediate complications. Procedure: Pre-Anesthesia Assessment: - Prior to the procedure, a History and Physical was performed, and patient medications and allergies were reviewed. The patient is competent. The risks and benefits of the procedure and the sedation options and risks were discussed with the patient. All questions were answered and informed consent was obtained. Patient identification and proposed procedure were verified by the physician, the nurse and the anesthesiologist in the procedure room. Mental Status Examination: alert and oriented. Airway Examination: normal oropharyngeal airway and neck mobility. CV Examination: regular rate and rhythm. Prophylactic Antibiotics: The patient does not require prophylactic antibiotics. Prior Anticoagulants: The patient has taken no previous anticoagulant or antiplatelet agents. ASA Grade Assessment: II - A patient with mild systemic disease. After reviewing the risks and benefits, the patient was deemed in satisfactory condition to undergo the procedure. The anesthesia plan was to use monitored anesthesia care (MAC). Immediately prior to administration of medications, the patient was re-assessed for adequacy to receive sedatives. The heart rate, respiratory rate, oxygen saturations, blood pressure, adequacy of pulmonary ventilation, and response to care were monitored throughout the procedure. The physical status of the patient was re-assessed after the procedure. The was introduced through the anus and advanced to the descending colon. The colonoscopy was incomplete as it was impossible to advance the scope proximal to 70cm. [Reason]. [Solution]. The patient tolerated the procedure well. The quality of the bowel preparation was excellent. Findings: The perianal and digital rectal examinations were normal. The area up to 70 cm proximal to the anus appeared normal. There was an angulation at this point which could not be passed. Impression: - The area at 70 cm proximal to the anus is normal. - No specimens collected. Recommendation: - Discharge patient to home. - Resume previous diet. - Continue present medications. - Perform an air contrast barium enema at appointment to be scheduled. Harsh Colmenares MD Harsh Colmenares MD 09/14/2018 12:55:10 PM Electronically signed by Harsh Colmenares MD Number of Addenda: 0 Note Initiated On: 09/14/2018 11:45 AM Estimated Blood Loss: Estimated blood loss: none.
== END | disposition home or self-care (01) ==
LOC: M OPP 10:23
PROVIDERS: ATTEND Surgery
DX: Z12.11 Encounter for screening for malignant neoplasm of colon (principal); Z79.82 Long term (current) use of aspirin; Z79.899 Other long term (current) drug therapy; Z88.0 Allergy status to penicillin; Z88.8 Allergy status to other drugs, medicaments and biological substances

== ENCOUNTER → 2018-10-18 | Outpatient (CLI) | payer OTHER ==
[~2018-10-18] MED LIST changes: -LIDOCAINE 2% INJ 100 MG/5 ML SDV (FOR ANES.) As Ordered ONE; +LIQUID POLIBAR PLUS 105% w/v 1900ML BTL As Ordered ONE; -NS 1,000 ML IV ONE; -PROPOFOL 200 MG/20 ML VIAL As Ordered ONE
--- NOTE | 2018-10-19 20:11 | REP ---
Examination Requested: Barium and Air contrast Reason For Exam: Incomplete colonoscopy, screening for malignant neoplasm of colon. The procedure was performed by ALEK Colby, under the direct supervision of Dr. Virk. The images were reviewed with Dr. Virk. The furnace maintenance film shows no organomegaly, or pathological masses. The intestinal gas pattern is unremarkable. Liquid barium and air were instilled into the colon and retrograde flow of the barium air mixture. The colon is normal in position and contour. Postradiation bulla is unremarkable throughout. There is free flow of contrast to the cecum. The colonic mucosal pattern is normal in course and caliber. There is no annular constricting lesion identified. There are no polypoid masses identified. Impression: 1. Unremarkable barium enema 1.4 minutes of fluoroscopy time was utilized for this procedure. Some fluoroscopic images are performed with last image hold technology. These images require no additional radiation. Reviewed by ALEK Baker 10/18/2018 04:25 P Electronically Signed by Javier Virk MD 10/19/2018 08:02 P
== END ==
LOC: M RAD 08:26
PROVIDERS: ATTEND Nurse Practitioner
DX: R93.3 Abnormal findings on diagnostic imaging of other parts of digestive tract (principal); Z12.11 Encounter for screening for malignant neoplasm of colon

== ENCOUNTER → 2019-07-14 | Outpatient (CLI) | payer OTHER ==
[~2019-07-14] MED LIST changes: +FAMC250T PO; -FAMC250T3 PO; -LIQUID POLIBAR PLUS 105% w/v 1900ML BTL As Ordered ONE; -MONT10TA2 PO; +MONT10TA4 PO; +PROHANCE 279.3MG/ML 5ML VIAL As Ordered ONE
--- NOTE | 2019-07-14 15:19 | REP ---
MRI BRAIN WITHOUT AND WITH IV CONTRAST: Posterior fossa IACs study. HISTORY: Unilateral sensorineural hearing loss right ear. Comparison study is from January 05, 2014. TECHNIQUE: Axial and coronal imaging planes utilized. Thin sections are included through the posterior fossa with T1- and T2-weighted sequences pre- and postcontrast. The contrast enhancement dose is 10 mL of intravenous ProHance. MRI FINDINGS: Craniocervical junction and upper cervical cord are normal in appearance. No bony calvarial lesion is seen. There is no MR evidence of significant paranasal sinus disease. There are a few fluid-filled mastoid air cells bilaterally, left a little more numerous than right consistent with mild mastoiditis. This finding is improved when compared with the prior MRI study of 2013. The middle ear cavities appear to be aerated. The internal auditory canals are symmetric and normal in size. Seventh and eighth nerves can be seen within them on thin section T2-weighted scans. There is no evidence of intracanalicular or CP angle cistern mass. Post contrast thin sections show no abnormal intercanalicular or extra canalicular contrast enhancement on either side. Whole brain postcontrast images show no abnormal intracranial enhancement. Diffusion weighted scans show no evidence of restricted diffusion to suggest acute ischemia. No mass, infarct or midline shift is seen. IMPRESSION: There are multiple mastoid air cells filled with fluid and/or mucosal thickening. This is less prominent than on the prior study from 2013. Otherwise negative MRI study of the brain and internal auditory canals. Electronically Signed by Brandon Mackey MD 07/14/2019 03:43 P
== END ==
LOC: M RAD 12:33
PROVIDERS: ATTEND Otolaryngology
DX: H90.41 Sensorineural hearing loss, unilateral, right ear, with unrestricted hearing on the contralateral side (principal)
CPT/HCPCS: 70553; A9576

== ENCOUNTER 2020-04-13 08:29 | Inpatient (IN) | payer OTHER ==
[~2020-04-13] VITALS: Ht 170.2 cm; Wt 69.9 kg
[~2020-04-13 08:29] MED LIST changes: +ASCO250T20 PO; -MONT10TA4 PO; +MONT5TAB2 PO; -PROHANCE 279.3MG/ML 5ML VIAL As Ordered ONE; -VITA1TAB23 PO
[2020-04-13] MEDS ORDERED: B-2100TA PO (08:55)
[2020-04-13] MEDS ORDERED: KETO10TAB PO ×2 (08:55→12:03)
[2020-04-13] MEDS ORDERED: NASA1SPR NARES ×2 (08:55→12:03)
[2020-04-13] MEDS ORDERED: ZINC1TAB2 PO ×2 (08:55→12:03)
[2020-04-13] MEDS ORDERED: BREO1INH INH ×2 (08:55→12:03)
[2020-04-13] MEDS: VITAMIN D 1,000 INTERNATIONAL UNITS TABLET PO SCH (09:00)
[2020-04-13] MEDS: MULTIVITAMINS/MINERALS THERAP 1 TAB PO SCH (09:00)
--- OUTSIDE RECORDS SUMMARY | 2020-04-13 09:11 | CCD | Continuity of Care Document ---
Author Author [facility] Organization [facility] Address Unknown Phone Unavailable Care Team Providers [employer] Name Role Phone Sedrick Salazar MD Unavailable Unavailable Allergies, Adverse Reactions, Alerts Substance Reaction Status Criticality Sulfa (Sulfonamide Antibiotics) Active No Information Medications Medication Instructions Dosage Effective Dates (start - stop) Sta tus Comments Plaquenil 200 mg tablet TAKE TWO TABLETS BY MOUTH EVERY DAY - Active Calcium 600 600 mg calcium (1,500 mg) tablet take 1 by Oral rou te every day 1 - Active Zyrtec 10 mg tablet take 1 tablet by oral route every day 10 MG - Active azelastine 0.15 % (205.5 mcg) nasal spray spray 1 spra y by intranasal route 2 times every day in each nostril 205.5 MCG - Active Co Q-10 200 mg capsule take 1 by Oral route every day 1 - Active famciclovir 250 mg tablet take 1 tablet by oral route every 12 hours 250 MG - Active ketorolac 10 mg tablet take 1 tablet by oral route every 6 hours as needed for up to 5 days total use 10 MG - Active magnesium 200 mg tablet take 1 tablet by oral route every day 1 ta blet - Active rosuvastatin 10 mg tablet take 1 tablet by oral route every day 10 MG - Active Breo Ellipta 200 mcg-25 mcg/dose powder for inhalation inhale 1 puff by inhalation route every day at the same time each day 1.00 puff - Active aspirin 81 mg tablet,delayed release take 1 tablet by oral r oute every day 81 MG - Active VITAMIN D3 (unknown strength) take 1 by Oral route once Not Availab le - Active multivitamin tablet take 1 tablet by oral route every day with mejia d - Active Fish Oil 1,000 mg (120 mg-180 mg) capsule take 2 capsu le by oral route every day 2 capsule - Active VITAMIN C (unknown strength) take by Oral route once Not Available - Active SUPER B MAXI COMPLEX (unknown strength) Not Available - Active rabeprazole 20 mg tablet,delayed release take 1 tablet by or al route every day - Active montelukast 10 mg tablet take 1 tablet by oral route every day in the evening 10 MG - Active Plaquenil 200 mg tablet TAKE TWO TABLETS BY MOUTH EVERY DAY - No Longer Active Problems Condition Type Effective Dates (start - stop) Clinical S tatus Comments Sicca syndrome, unspecified Diagnosis interpretation (observable en tity) 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 terminal clerk (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 Diagnosis inter pretation (observable entity) Erythema nodosum Diagnosis interpretation (observable entity) Sicca syndrome, unspecified Diagnosis interpretation (observable en tity) Erythema nodosum Diagnosis interpretation (observable entity) Other terminal clerk drug therapy Diagnosis interpretation (observable e ntity) Erythema nodosum Diagnosis interpretation (observable entity) Sicca syndrome Diagnosis interpretation (observable entity) Other specified abnormal findings of blood chemistry D iagnosis interpretation (observable entity) Erythema nodosum Diagnosis interpretation (observable entity) Sicca syndrome Diagnosis interpretation (observable entity) Other specified abnormal findings of blood chemistry D iagnosis interpretation (observable entity) Erythema nodosum Diagnosis interpretation (observable entity) Sicca syndrome Diagnosis interpretation (observable entity) Other specified abnormal findings of blood chemistry D iagnosis interpretation (observable entity) Sicca syndrome Diagnosis interpretation (observable entity) Erythema nodosum Diagnosis interpretation (observable entity) Other specified abnormal findings of blood chemistry D iagnosis interpretation (observable entity) Sicca syndrome Diagnosis interpretation (observable entity) Erythema nodosum Diagnosis interpretation (observable entity) Other specified abnormal findings of blood chemistry D iagnosis interpretation (observable entity) Erythema nodosum Diagnosis interpretation (observable entity) Cough Diagnosis interpretation (observable entity) Depression Problem (finding) Active High Cholesterol Problem (finding) Active Anemia Problem (finding) Active Anxiety Problem (finding) Active Stomach Ulcer Problem (finding) Active Asthma Problem (finding) Active Migraine Headaches Problem (finding) Active Mniere's disease Problem (finding) Active Dislocation of temporomandibular joint Problem (finding) Active Procedures Procedure Date No Information Results Test Name Date and Time Measure Units Reference Range Abnormal Flag St atus Comments No Information Advance Directives Directive Yes / No Effective Date File Name No Information Encounters Encounter Description Practice Location Reason(s) For Visit Diagnose s Date Provider Providers Copied on Encounter [facility], [address] [place] [address], [id number], [place] tel:[phone] [facility] No Information Martin Dubose. [address] [place] [address], [id number], [place]. tel:[phone] [facility], [address] [place] [address], [id number], [place] tel:[phone] [facility] No Information Salina Yates. [address] [place] [address], [id number], [place]. tel:[phone] [facility], [address] [place] [address], [id number], [place] tel:[phone] [facility] Sicca syndrome, unspecifiedOther terminal clerk (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Erythema nodosum Peggy Taylor. [address] [place] [address], [id number], [place]. tel:[phone] Referring Provider: Mari Em NP, [address], [id number]. tel:[phone] [facility], [address] [place] [address], [id number], [place] tel:[phone] [facility] Sicca syndrome, unspecifiedErythema nodosumOther alf drug therapy Tom Torres. [address] [place] [address], [id number], [place]. tel:[phone] Referring Provider: Mari Em NP, [address], [address]. tel:[phone] [facility], [address] [place] [address], [id number], [place] tel:[phone] [facility] Erythema nodosumSicca syndromeOther specified abnormal findings of blood chemistry Peggy Taylor. [address] [place] [address], [id number], [place]. tel:[phone] Referring Provider: Mari Em NP, [address], [address]. tel:[phone] [facility], [address] [place] [address], [id number], [place] tel:[phone] [facility] Erythema nodosumSicca syndromeOther specified abnormal findings of blood chemistry Peggy Taylor. [address] [place] [address], [id number], [place]. tel:[phone] Referring Provider: Mari Em NP, [address] [place] [address], [id number]. tel:[phone] [facility], [address] [place] [address], [id number], [place] tel:[phone] [facility] Erythema nodosumSicca syndromeOther specified abnormal findings of blood chemistry Peggy Taylor. [address] [place] [address], [id number], [place]. tel:[phone] Referring Provider: Mari Em NP, [address], [address]. tel:[phone] [facility], [address] [place] [address], [id number], [place] tel:[phone] [facility] Sicca syndromeErythema nodosumOther specified abnormal findings of blood chemistry Peggy Taylor. [address] [place] [address], [id number], [place]. tel:[phone] Referring Provider: Mari Em NP, [address], [address]. tel:[phone] [facility], [address] [place] [address], [id number], [place] tel:[phone] [facility] Sicca syndromeErythema nodosum Peggy Taylor. [address] [place], [place], [id number], . tel:[phone] Referring Provider: Mari Em NP, [address], [address]. tel:[phone] [facility], [address] [place], [place], [id number], [place] tel:[phone] [facility] Other specified abnormal findings of blood chemistryErythema nodosumCough Tom Torres. [address] [place] [address], [id number], [place]. tel:[phone] Referring Provider: Mari Em NP, [address], [address]. tel:[phone] Family History Family Member Type Diagnosis Age At Onset Brother Problem (finding) Coronary artery disease, dom ture Sister Problem (finding) Cancer, breast Immunizations Vaccine Date Status Comments Influenza, injectable, MDCK, Flucelvax Quad Y administered Note: approx ; Source: Other Provider Influenza, injectable, quadrivalent, spl it virus, 18 years or older Afluria Quad [id number] administered Source: Other Provid er Payers Payer name Insurance type Covered democrat ID Authorization(s ) R CI [id number] Social History Type Description Quantity Date Captured Comments Alcohol Use Details Unknown Caffeine Use Details Unknown Tobacco Use Status No Information Smoking Status No Information Sex Female Vital Signs Date / Time: Height Weight BMI Pulse Rate Blood Pressure Temperatu re Respiratory Rate Body Surface Area Head Circumference BMI percentile Pulse Ox In haled Ox No Information Chief Complaint And Reason For Visit No Information Reason For Referral Reason For Referral No Information Plan Of Treatment Date Type Action Status Referral Ordered: *CHEST X-RAY, 2 VIEWS, FRONTAL, LATERAL ordered Appointment Maggie Wayne BOOKED History Of Present Illness Encounter Date Complaint History Of Present I llness No Information Functional Status Date Functional Assessment No Information Medications Administered Medication Instructions Dosage Effective Dates (start - stop) Sta tus Comments No Information Instructions Date Instruction Additional Informati on Risks/benefits of medications reviewed Labs ordered to check disease activity. Labs ordered to check blood counts, liver and kidney functions to monitor safety of medication. Discussed / Reviewed Labs Risks/benefits of medications reviewed Labs ordered to check disease activity. Labs ordered to check blood counts, liver and kidney functions to monitor safety of medication. Discussed / Reviewed Labs call if symptoms worsen Risks/benefits of medications reviewed Call if symptoms return Discussed / Reviewed Labs Call if symptoms return Risks/benefits of medications reviewed Risks/benefits of medications reviewed Labs ordered to check disease activity. Call if symptoms return Labs ordered to check blood counts, liver and kidney functions to monitor safety of medication. Discussed / Reviewed Labs Risks/benefits of medications reviewed Discussed / Reviewed Labs hold medication and call if any side eff ect develops Physical Examination Exam Findings Details No Information
--- OUTSIDE RECORDS SUMMARY | 2020-04-13 09:11 | CCD | Continuity of Care Document ---
Author Author [facility] Organization [facility] Address Unknown Phone Unavailable Care Team Providers Care Program Support Assistant Name Role Phone Sedrick Salazar MD Unavailable [...] unspecified Diagnosis interpretation (observable en tity) Other filler leaf cutter long (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 Diagnosis inter pretation (observable entity) Erythema nodosum Diagnosis interpretation (observable entity) Sicca syndrome, unspecified Diagnosis interpretation (observable en tity) Erythema nodosum Diagnosis interpretation (observable entity) Other filler leaf cutter long drug therapy Diagnosis interpretation (observable e ntity) [...] Date Provider Providers Copied on Encounter [facility], [address] [place] [address], [id number], [place] tel:[phone] [facility] No Information Martin Dubose. [address] [place] [address], [id number], [place]. tel:[phone] [facility], [address] [place] [address], [id number], [place] tel:[phone] [facility] No Information Tibmaye Joshihleen. [facility] [employer], [id number], [place]. tel:[phone] [facility], [address] [place] [address], [id number], [place] tel:[phone] [facility] No Information Tibbits Trudy. [facility] [employer] [place], [id number], [place]. tel:[phone] [facility], [address] [place] [address], [id number], [place] tel:[phone] [facility] Sicca syndrome, unspecifiedOther correction (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Erythema nodosum Peggy Taylor. [address] [place] [address], [id number], [place]. tel:[phone] Referring Provider: Mari Em NP, [address], [address]. tel:[phone] [facility], [address] [place] [address], [id number], [place] tel:[phone] [facility] Sicca syndrome, unspecifiedErythema nodosumOther correction drug therapy Tom Torres. [address] [place] [address], [id number], [place]. tel:[phone] Referring Provider: Mari Em NP, [address], [address]. tel:[phone] [facility], [address] [place] [address], [id number], [place] tel:[phone] [facility] Erythema nodosumSicca syndromeOther specified abnormal findings of blood chemistry Peggy Taylor. [address] [place] [address], [id number], [place]. tel:[phone] Referring Provider: Mari Em NP, [address], [address]. tel:[phone] [facility], [address] [place] [address], [id number], [place] tel:[phone] [facility] Erythema nodosumSicca syndromeOther specified abnormal findings of blood chemistry Peggy Taylor. [address] [place] [address], [id number], [place]. tel:[phone] Referring Provider: Mari Em NP, [address], [address]. tel:[phone] [facility], [address] [place] [address], [id number], [place] tel:[phone] [facility] Erythema nodosumSicca syndromeOther specified abnormal findings of blood chemistry Peggy Taylor. [address] [place], [place], [id number], [place]. tel:[phone] Referring Provider: Mari Em NP, [address], [address]. tel:[phone] [facility], [address] [place] [address], [id number], [place] tel:[phone] [facility] Sicca syndromeErythema nodosumOther specified abnormal findings of blood chemistry Peggy Taylor. [address] [place], [place], [id number], . tel:[phone] Referring Provider: Mari Em NP, [address] [place] [address], [id number]. tel:[phone] [facility], [address] [place] [address], [id number], tel:[phone] [facility] Sicca syndromeErythema nodosum Peggy Taylor. [address] [place], [place], [id number], [place]. tel:[phone] Referring Provider: Mari Em NP, [address] [place] [address], [id number]. tel:[phone] [facility], [address] [place] [address], [id number], tel:[phone] [facility] Other specified abnormal findings of blood chemistryErythema nodosumCough Mtanos Brian. [address] [place] [address], [id number], [place]. tel:[phone] Referring Provider: Mari Em NP, [address] [place] [address], [id number]. tel:[phone] Family History Family Member Type Diagnosis Age At Onset Brother Problem (finding) Coronary artery disease, dom ture Sister Problem (finding) Cancer, breast Immunizations Vaccine Date Status Comments Influenza, injectable, MDCK, Flucelvax Quad Y administered Note: approx ; Source: Other Provider Influenza, injectable, quadrivalent, spl it virus, 18 years or older Afluria Quad [id number] administered Source: Other Provid er Payers Payer name Insurance type Covered alliance party ID Authorization(s ) [facility] CI [id number] Social History Type Description Quantity Date Captured Comments Sex Female Smoking Status No Information Vital Signs Date / Time: Height Weight [...] 2 VIEWS, FRONTAL, LATERAL ordered Appointment Maggie Wyane BOOKED History Of Present Illness Encounter Date [...]
--- OUTSIDE RECORDS SUMMARY | 2020-04-13 09:11 | CCD | Continuity of Care Document ---
Author Author Maggie GAMBOA MD Organization Unknown Address [address] [place] [id number] Phone [phone] Care Team Providers Care Proof Technician Name Role Phone Mari Em AUTM [phone] Olga Barbosa AUTM [phone] Problems Active Problems Provider Date Dysfunction of eustachian tube Jose Reyesc II, PA-C Onset: 07/18/2013 Hearing loss Jose Reyesc II, PA-C Onset: 07/18/2013 Dizziness and giddiness Jose Reyesc II, PA-C Onset: 014 Epistaxis Jose Reyesc II, PA-C Onset: 07/18/2013 Sensorineural hearing loss, bilateral Jose Juice II, PA-C Onset: 01/19/2014 Subjective tinnitus Jose Reyesc II, PA-C Onset: 01/19/2014 Bilateral tinnitus Jose Reyesc II, PA-C Onset: 01/02/2015 Sensorineural hearing loss, bilateral Jose Reyesc II, PA-C Onset: 01/02/2015 Meniere's disease, unspecified ear Jose Bose II, PA-C Ons et: 01/02/2015 Inactive Meniere's disease Jose Reyesc II, PA-C Onset: 12/15 Mild intermittent asthma Elias Zuniga D.O. Onset: 08/21/19 18 Pulmonary hypertension Elias Zuniga D.O. Onset: 08/20/2017 Obstructive sleep apnea syndrome Elias Zuniga D.O. Onset: 08/20/2017 Social History Type Date Description Comments Sex Unknown ETOH Use Denies alcohol use Tobacco Use Start: Unknown Denies Smoking Recreational Drug Use Denies Drug Use Allergies, Adverse Reactions, Alerts Active Allergies Reaction Severity Comments Date Sulfa rash and confusion 4 Augmentin rash 06/09/2013 Meloxicam 07/06/2019 Medications Active Medications SIG Qnty Indications Ordering Provide r Date Prednisone 20mg Tablets 1 by mouth every day 7tabs Олег Gamboa MD 04/04/2020 Proair HFA 108(90Base) mcg/Act Aer osol 2 puffs four times a day as needed 8.500gm J45.20 Lion Horvath 08/20/2017 Azelastine HCL (Nasal) 0.1% Soluti on 1 spray intranasal twice a day Unknown Zinc Sulfate 50mg Capsules 1 by mouth twice a day for decreased smell Unknown Magnesium Oxide 400(241.3Mg) mg Ta blets 1 by mouth every day Unknown Rosuvastatin Calcium 10mg Tablets 1 qd Unknown Rabeprazole Sodium 20mg Tablets DR 1 by mouth once a day Unknown Ketorolac Tromethamine 10mg Tablet s 1 by mouth as needed for migraine Unknown Coq10 200mg Capsules 1 by mouth 2 X every day Unknown Cetirizine HCL 10mg Tablets 1 by mouth every day Unknown CPAP 7CM LCW Brenda Ward M.D. Plaquenil 200mg Tablets 1 by mouth twice per day Unknown Breo Ellipta 100-25mcg/Inh Aerosol 1 puff every day Unknown Aspirin 81 Low Dose 81mg Chewtabs 1 by mouth every day Unknown Vitamin B-Complex Tablets 1 po qd Unknown Vitamin D 3000Unit Capsules 1 tab po daily 90caps Unknown Vitamin C 500mg Capsules 1 cap po daily Unknown Calcium 600 600mg Tablets 1 tab po daily Unknown Hobbs-3 Fish Oil 1000mg Capsules 1 cap po tid Unknown One-A-Day Womens 50+ Advantage 50+Adv Tablets 1 tab po daily Unknown Famciclovir 500mg Tablets 1 tab po tid prn Unknown Singulair 10mg Tablets 1 po q d 30tabs Unknown Immunizations Description No Information Available Vital Signs Date Vital Result Comment 04/04/2020 8:59am Height 64 inches 5'4" Weight 150.00 lb BMI (Body Mass Index) 25.7 kg/m2 [place] Body Weight 120 lb Weight 68.040 kg BSA (Body Surface Area) 1.73 m2 07/22/2019 8:54am Height 64 inches 5'4" Weight 150.00 lb BMI (Body Mass Index) 25.7 kg/m2 [place] Body Weight 120 lb Weight 68.040 kg BSA (Body Surface Area) 1.73 m2 Results Description No Information Available Procedures Description No Information Available Medical Devices Description No Information Available Encounters Description No Information Available Assessments Description No Information Available Plan of Treatment No Information Available Functional Status Description No Information Available Mental Status Description No Information Available Referrals Description No Information Available
--- OUTSIDE RECORDS SUMMARY | 2020-04-13 09:11 | CCD | Continuity of Care Document ---
Author Author [facility] Organization [facility] Address Unknown Phone Unavailable Care Team Providers Care Supervisor Ship Maintenance Services Name Role Phone [place] LEAF CONDITIONER, Trudy Unavailable Unavailable Allergies, Adverse Reactions, Alerts Substance Reaction Status Criticality Sulfa (Sulfonamide Antibiotics) Active No Information Medications Medication Instructions Dosage Effective Dates (start - stop) Sta tus Comments Plaquenil 200 mg tablet TAKE 1.5 TABLETS BY MOUTH EVERY DAY - Active Breo Ellipta 100 mcg-25 mcg/dose powder for inhalation inhale 1 puff by inhalation route every day at the same time each day 1.00 puff - Active Nasacort 55 mcg nasal spray aerosol spray 2 spray by i ntranasal route every day in each nostril 110 MCG - Active Calcium 600 600 mg calcium [...] route every day 10 MG - Active aspirin 81 mg tablet,delayed release [...] MOUTH EVERY DAY - No Longer Active Breo Ellipta 200 mcg-25 mcg/dose powder for inhalation inhale 1 puff by inhalation route every day at the same time each day 1.00 puff - Mar No Longer Active Problems Condition Type Effective Dates (start - stop) Clinical S tatus Comments Sicca syndrome, unspecified Diagnosis interpretation (observable en tity) Other longterm (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 Diagnosis inter pretation (observable entity) Erythema nodosum Diagnosis interpretation (observable entity) Sicca syndrome, unspecified Diagnosis interpretation (observable en tity) Other manager long term care (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 Diagnosis inter pretation (observable entity) Erythema nodosum Diagnosis interpretation (observable entity) Sicca syndrome, unspecified Diagnosis interpretation (observable en tity) Erythema nodosum Diagnosis interpretation (observable entity) Other manager long term care drug therapy Diagnosis interpretation (observable e ntity) [...] joint Problem (finding) Active Procedures Procedure Date OFFICE/OUTPATIENT VISIT, EST HCV Screening For Pt Born 1947 To 1967 ROUTINE VENIPUNCTURE COMPLETE CBC W/AUTO DIFF WBC RBC SED RATE, AUTOMATED C-REACTIVE PROTEIN ASSAY OF CREATININE ALANINE AMINO (ALT) (SGPT) TRANSFERASE (AST) (SGOT) ASSAY OF SERUM ALBUMIN Results Test Name Date and Time Measure Units Reference Range Abnormal Flag St atus Comments Panel Description: CBC Final WBC 13:12:00 7.0 10*3/uL 3.7-10.1 Final RBC 13:12:00 4.64 10*6/uL 3.50-5.50 Final HGB 13:12:00 15.0 g/dL 12.0-16.0 Final HCT 13:12:00 45.0 % 36.0-48.0 Final MCV 13:12:00 96.9 fL 80.0-100.0 Final MCH 13:12:00 32.4 pg 26.0-34.0 Final MCHC 13:12:00 33.4 g/dL 31.0-37.0 Final RDW 13:12:00 11.7 % 10.0-15.0 Final PLATELETS 13:12:00 299 10*3/uL 150-500 Final MPV 13:12:00 6.5 fL 6.0-10.0 Final YAW# 13:12:00 4.32 10*3/uL 2.10-8.00 Final LYM# 13:12:00 1.80 10*3/uL 1.00-5.00 Final MONO# 13:12:00 0.61 10*3/uL 0.10-1.00 Final EOS# 13:12:00 0.2 10*3/uL 0.0-0.5 Final BASO# 13:12:00 0.1 10*3/uL 0.0-0.2 Final YAW% 13:12:00 62.1 % 50.0-80.0 Final LYM% 13:12:00 25.8 % 25.0-50.0 Final MONO% 13:12:00 8.7 % 2.0-10.0 Final EOS% 13:12:00 2.4 % 0.0-5.0 Final BASO% 13:12:00 1.0 % 0.0-4.0 Final Panel Description: ESR Final ESR 13:12:00 7 mm/Hr 0-20 Final Panel Description: ALBUMIN Final ALB 13:12:00 4.4 g/dL 3.4-4.4 Final Panel Description: ALT Final ALT 13:12:00 46 U/L 30-65 Final Panel Description: AST Final AST 13:12:00 22 U/L 15-37 Final Panel Description: CREATININE Final CREATININE 13:12:00 1.0 mg/dL 0.6-1.2 Final eGFR Non- 13:12:00 56.4 mL/min/1.73m Final eGFR 13:12:00 >60 mL/min/1.73 Final Panel Description: CRP Final CRP 13:12:00 <0.2 mg/dL 0.0-0.5 Final Advance Directives Directive Yes / No Effective Date File Name No Information Encounters Encounter Description Practice Location Reason(s) For Visit Diagnose s Date Provider Providers Copied on Encounter OFFICE/OUTPATIENT VISIT, EST [facility], [address] [place] [address], [id number], [place] tel:[phone] [facility] Erythema Nodosum (chief complaint) Sicca syndrome, unspecifiedOther longterm (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Erythema nodosum Salina Yates. [address] [place] [address], [id number], [place]. tel:[phone] Referring Provider: Mari Em NP, [address], [address]. tel:[phone] [facility], [address] [place] [address], [id number], [place] tel:[phone] [facility] No Information Martin Dubose. [address] [place] [address], [id number], [place]. tel:[phone] [facility], [address] [place] [address], [id number], [place] tel:[phone] [facility] Sicca syndrome, unspecifiedOther longterm (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Erythema nodosum Peggy Taylor. [address] [place] [address], [id number], [place]. tel:[phone] Referring Provider: Mari Em NP, [address], [address]. tel:[phone] [facility], [address] [place] [address], [id number], [place] tel:[phone] [facility] Sicca syndrome, unspecifiedErythema nodosumOther longterm drug therapy Tom Torres. [address] [place] [address], [id number], [place]. tel:[phone] Referring Provider: Mari Em NP, [address], [address]. tel:[phone] [facility], [address] [place] [address], [id number], [place] tel:[phone] [facility] Erythema nodosumSicca syndromeOther specified abnormal findings of blood chemistry Peggy Taylor. [address] [place], [place], [id number], [place]. tel:[phone] Referring Provider: Mari Em NP, [address], [address]. tel:[phone] [facility], [address] [place] [address], [id number], [place] tel:[phone] [facility] Erythema nodosumSicca syndromeOther specified abnormal findings of blood chemistry Peggy Taylor. [address] [place], [place], [id number], [place]. tel:[phone] Referring Provider: Mari Em NP, [address], [address]. tel:[phone] [facility], [address] [place] [address], [id number], [place] tel:[phone] [facility] Erythema nodosumSicca syndromeOther specified abnormal findings of blood chemistry Peggy Taylor. [address] [place], [place], [id number], [place]. tel:[phone] Referring Provider: Mari Em NP, [address], [address]. tel:[phone] [facility], [address] [place] [address], [id number], [place] tel:[phone] [facility] Sicca syndromeErythema nodosumOther specified abnormal findings of blood chemistry Peggy Taylor. [address] [place] [address], [id number], [place]. tel:[phone] Referring Provider: Mari Em NP, [address], [address]. tel:[phone] [facility], [address] [place] [address], [id number], tel:[phone] [facility] Sicca syndromeErythema nodosum Peggy Taylor. [address] [place] [address], [id number], . tel:[phone] Referring Provider: Mari Em NP, [address], [address]. tel:[phone] [facility], [address] [place] [address], [id number], tel:[phone] [facility] Other specified abnormal findings of blood chemistryErythema nodosumCough Tom Torres. [address] [place] [address], [id number], . tel:[phone] Referring Provider: Mari Em NP, [address], [address]. tel:[phone] Family History Family Member Type Diagnosis Age At Onset Brother Problem (finding) Coronary artery disease, dom ture Sister Problem (finding) Cancer, breast Immunizations Vaccine Date Status Comments Flucelvax administered Note: per pt ; Source: Other Provider Influenza, injectable, MDCK, Flucelvax Quad 2017- administered Note: approx ; Source: Other Provider Influenza, injectable, quadrivalent, spl it virus, 18 years or older Afluria Quad [id number] administered Source: Other Provid er Payers Payer name Insurance type Covered democrat ID Authorization(s ) [facility] CI [id number] Social History Type Description Quantity Date Captured Comments Alcohol Use Details No Caffeine Use Details coffee 2 cups per day Tobacco Use Status Never smoked tobacco Smoking Status Never smoker Non-Smoking Tobacco Use Details : No Details Available : No Details Available Sex Female Vital Signs Date / Time: Height Weight BMI Pulse Rate Blood Pressure Temperatu re Respiratory Rate Body Surface Area Head Circumference BMI percentile Pulse Ox In haled Ox 12:23 PM 64.00 in 150.00 lbs 25.75 kg/meter(2) 122/8 2 mm[Hg] Chief Complaint And Reason For Visit From encounter dated '03/30/2020 12:20'. Erythema Nodosum (chief complaint). Description: The pain severity is 0/10. Pat ient is experiencing oral ulcers (mouth sores), dry mouth, dry eyes and rash. P atient denies having generalized morning stiffness. Reason For Referral Reason For Referral No Information Plan Of Treatment Date Type Action Status Referral Ordered: *CHEST X-RAY, 2 VIEWS, FRONTAL, LATERAL ordered Appointment Maggie Wayne BOOKED History Of Present Illness Encounter Date Complaint History Of Present I llness Erythema Nodosum The pain severity is 0/10. Patient is experiencing oral ulcers (mouth sores), dry mouth, dry eyes and rash. Patient denies having generalized morning stiffness. Functional Status Date Functional Assessment No Information [...] ect develops Physical Examination Exam Findings Details Head/Face Normal Skull - Normal. Hair and scalp - Normal. Eyes Normal Conjunctiva - Right: Normal, Left: Normal. Nose/Mouth/Throat Normal External nose - Norm al. Neck Exam Normal Inspection - Normal. Lymph Detail Normal No cervical or supra clavicular adenopathy Respiratory Normal Inspection - Normal. Auscultation - Normal. Extremity Normal No edema. Abdomen Normal Inspection - Normal. No abdominal tenderness. No hepatic enlargement. No palpable mass. Psychiatric Normal Orientation - Kerrick ed to time, place, person & situation. Appropriate mood and affect. Good insight. Good judgment. Cardiovascular Normal Heart rate - Regular rate. Rhythm - Regular. Murmurs - None. General Exam Comments Patient wearing a ma sk
--- OUTSIDE RECORDS SUMMARY | 2020-04-13 09:11 | CCD | Continuity of Care Document ---
Author Author Maggie Hyde Organization Unknown Address [address] [address] Phone [phone] Care Team Providers Care Denture Waxer Name Role Phone Mari Em AUTM [phone] Problems Active Problems Provider Date Hyperlipidemia [facility] Onset: 10/24/2011 Menopausal and postmenopausal disorders [facility] Onset: 10/24/[address] [facility] Onset: 10/24/[address] [facility] Onset: 11/21/19 [address] disease [facility] [facility] Onset: 0 11/20/[address] [facility] Onset: [address] [facility] Onset: 11/20/2017 Social History Type Date Description Comments Sex Unknown ETOH Use Drinks Alcoholic Beverages Rarel y Tobacco Use Start: Unknown Patient has never smoked Allergies, Adverse Reactions, Alerts Active Allergies Reaction Severity Comments Date Sulfa RASH AND CONFUSION 2 Augmentin RASH 10/24/2011 Medications Active Medications SIG Qnty Indications Ordering Provide r Date Premarin 0.625mg/GM Cream / applicatorful vaginally at bedtime for 14 days then three times weekly 90gm [facility] 03/01/2020 Montelukast Sodium 10mg Tablets Take One Tablet By Mouth AT Bedtime 90tabs [facility] 01/15 Magnesium 400mg Tablets 1 by mouth every night at bedtime [facility] 11/20/2017 Azelastine HCL (Nasal) 0.1% Soluti on two sprays in each nostril once daily 90ml Prosper Hyde NP 11/20/2017 Rosuvastatin Calcium 10mg Tablets Take One Tablet By Mouth Every Day 90tabs Mari Karina Mag [facility] 08/13 Shingrix 50mcg Suspension Rec 0.5ml intramuscular repeat in 2-6 months .5ml Mari Phan [facility] 07/29/2017 Co Q 10 100mg Capsules 2 by mouth twice daily Mari Phan [facility] 07/21/2017 Plaquenil 200mg Tablets one tab by mouth once in the morning 30tabs Mari Phan [facility] 07/03/2017 Vitamin B Complex Tablets 1 by mouth every day 90tabs Mari Karina Mag [facility] 07/03/2017 Vitamin B-2 100mg Tablets 2 by mouth twice a day 120tabs Mari Phan [facility] 07/16/2016 Estroven Nighttime 3mg Capsules 1 by mouth at bedtime John Lux MD 07/16/2016 Famciclovir 250mg Tablets Take One Tablet By Mouth Twice A Day as Needed 60tabs A60.00 Mari Karina Mag [facility] 10/01/2015 B Complex Capsules 1 po qd Mari Phan [facility] 10/24/2011 Aspir-[address] 1 po qd Mari Collins Mag [facility] 10/24/2011 Vitamin D 2000Unit Capsules 1 1/2 po qd Mari Phan [facility] 10/24/2011 Vitamin C 500mg Tablets ER 1 po qd Mari Karina Hathaway [facility] 10/24/2011 Calcium 600 600mg Tablets 1 p o qd [facility] 10/24/2011 Milford-3 1000mg Capsules 1 Tab tid Mari Karina Mag [facility] 10/24/2011 Multi For Her 50+ Capsules [facility] 10/[facility]2011 Proair Respiclick 10 8(90Base) mcg/Act Aerosol one to two puffs four times a day or as needed for cough or shortness of breath and before exercising. Unknown Cranberry 500mg Capsules 2 by mouth every day Unknown Rabeprazole Sodium 20mg Tablets DR Take One Tablet By Mouth Every Day 90tabs [facility] Breo Ellipta 100-25mcg/Inh Aerosol inhale one puff by mouth every day Switches to 200 with URI R05 Unknown Zyrtec Allergy 10mg Tablets 1 by mouth every day Unknown Zinc 30mg Capsules 1 by mo uth every day Unknown Nasacort Allergy 24HR 55mcg/Act Ae rosol 1- 2 sprays each nare every day as needed Unknown Medications Administered in Office Medication SIG Qnty Indications Ordering Provider Date Immunization Adminstration,1 Vaccine/Tox oid Injection [facility] 01/07/2018 Immunizations CPT Code Status Date Vaccine Lot # U-Flu Given 01/04/2019 Influenza,Unspecified 66423 Given 01/07/2018 Influenza Virus Vaccine, Quadrivalent (Cciiv4), Derived From Cell [id number] Q2037 Given 01/09/2016 Fluvirin Virus Vaccine 34328 01 Q2037 Given 01/06/2014 Fluvirin Virus Vaccine 23230 01 Q2037 Given 02/16/2013 Fluvirin Virus Vaccine Vital Signs Date Vital Result Comment 03/01/2020 10:00am Heart Rate 86 /min Height 64 inches 5'4" Weight 148.00 lb O2 % BldC Oximetry 98 % BMI (Body Mass Index) 25.4 kg/m2 09/20/2019 11:33am BP Systolic 120 mmHg BP Diastolic 70 mmHg Heart Rate 78 /min Height 64 inches 5'4" Weight 148.00 lb O2 % BldC Oximetry 97 % BMI (Body Mass Index) 25.4 kg/m2 Results Test Acquired Date Facility Test Result H/L Range Note Laboratory test finding 03/01/2020 [facility] [place] Pap Ig LB & HPV HR W/RFX Renata 16,18 <pending> Complete Blood Count 02/29/2020 [facility] Manufacturing Technology Professor: [place] [address] [phone] WBC 5.9 x10*3/UL 4.1 - 10.9 RBC 4.62 x10*6/UL 4.20 - 6.30 Hemoglobin 14.9 g/dL 12.0 - 18.0 Hematocrit 42.1 % 37.0 - 51.0 MCV 91.0 fL 80.0 - 97.0 MCH 32.2 pg High 26.0 - 32.0 MCHC 35.4 g/dL 31.0 - 38.0 RDW 12.6 % 11.6 - 13.7 PLT 273 x10*3/UL 140 - 440 MPV 7.3 FL Low 7.8 - 11.0 Lymph % 23.3 % 10.0 - 58.5 Mid % 5.6 % 1.7 - 9.3 Neut % 71.1 % 37.0 - 92.0 Lymph # 1.3 x10*3/UL 0.6 - 4.1 Mid # 0.4 x10*3/UL 0.1 - 0.6 Neut # 4.2 x10*3/UL 2.0 - 7.8 Comprehensive Chem Profile 02/29/2020 [facility], Manufacturing Technology Professor: Dr Cristian Chi [place], [place] [id number] [phone] Glucose 92 mg/dL 74 - 99 1 BUN 17 mg/dL 7 - 18 Creatinine 0.7 mg/dL 0.6 - 1.3 Sodium 140 mEq/L 136 - 145 Potassium 4.7 mEq/L 3.5 - 5.1 Chloride 102 mEq/L 98 - 107 Carbon Dioxide 29 mEq/L 21 - 32 Calcium 9.6 mg/dL 8.5 - 10.1 Alk. Phosphatase 41 mg/dL Low 46 - 116 Total Bilirubin 0.4 mg/dL 0.2 - 1.0 Ast (Sgot) 19 U/L 15 - 37 Alt (SGPT) 36 U/L 12 - 78 Albumin 4.4 g/dL 3.4 - 5.0 Total Protein 6.9 g/dL 6.4 - 8.2 A/G Ratio 1.76 CALC 1.00 - 1.90 GFR >= 60 mL/min >60 GFR >= 60 mL/min >60 2 Lipid Profile 02/29/2020 [facility] , Manufacturing Technology Professor: [place] [address] [phone] Cholesterol 185 mg/dL 131 - 200 Triglycerides 82 mg/dL 30 - 150 HDL Cholesterol 68 mg/dL High 35 - 60 LDL (Calculated) 101 CALC 50 - 159 1 100-125 mg/dL PRE-DIABET ES/FASTING >126 mg/dL DIABETES/FASTING 2 CHRONIC KIDNEY DISEASE STAGI NG PER NKF STAGE I & II GFR >= 60 NORMAL TO MILDLY DECREASED STAGE III GFR 30-59 MODERATELY DECREASED STAGE IV GFR 15-29 SEVERELY DECREASED STAGE V GFR <15 VERY LITTLE GFR LEFT ESRD GFR <15 ON IT TECHNICIAN Procedures Date Code Description Status 04/18/2019 [id number] Mammogram Completed 09/14/2018 [id number] Colonoscopy Completed 02/23/2018 [id number] Mammogram Completed 02/17/2017 [id number] Mammogram Completed 02/01/2016 [id number] Mammogram Completed Medical Devices Description No Information Available Encounters Type Date Location Provider Dx Diagnosis Office Visit 03/01/2020 10:00a [facility] Mari Cuadra, [facility] Z00.00 Encntr for general adult medical exam w/ o abnormal findings E78.00 Pure hypercholesterolemia, u nspecified J45.20 Mild intermittent asthma, un complicated G47.33 Obstructive sleep apnea (jessica lt) (pediatric) M35.00 Sicca syndrome, unspecified Z79.02 intermodal dispatcher (current) use of a ntithrombotics/antiplatelets H81.03 Meniere's disease, bilateral N95.2 Postmenopausal atrophic vagi nitis Z13.89 Encounter for screening for other disorder Office Visit 09/20/2019 11:20a [facility] Mari Cuadra, [facility] K21.9 Gastro-esophageal reflux disease without esophagitis J45.20 Mild intermittent asthma, un complicated G47.33 Obstructive sleep apnea (jessica lt) (pediatric) M35.00 Sicca syndrome, unspecified Z79.02 prison (current) use of a ntithrombotics/antiplatelets H81.03 Meniere's disease, bilateral Assessments Date Code Description Provider 03/01/2020 Z00.00 Encounter for genera l adult medical examination without abnormal findings [facility] 03/01/2020 E78.00 Pure hypercholesterolemia, unspe cified YASMANY HydeP 03/01/2020 J45.20 Mild intermittent asthma, uncomp licated [facility] 03/01/2020 G47.33 Obstructive sleep apnea (adult) (pediatric) [facility] 03/01/2020 M35.00 Sicca syndrome, unspecified YAS[place]Y HydeP 03/01/2020 Z79.02 intermodal dispatcher (current) use of antit hrombotics/antiplatelets [facility] 03/01/2020 H81.03 Meniere's disease, bilateral [facility] [facility] 03/01/2020 N95.2 Postmenopausal atrophic vaginiti s Mari Phan, [facility] 03/01/2020 Z13.89 Encounter for screening for othe r disorder Mari Phan [facility] 02/29/2020 K21.9 Gastro-esophageal reflux disease without esophagitis Mari Phan [facility] 02/29/2020 K21.9 Gastro-esophageal reflux disease without esophagitis Lab Schedule 02/29/2020 E78.00 Pure hypercholesterolemia, unspe cified Mari Phan [facility] 02/29/2020 E78.00 Pure hypercholesterolemia, unspe cified Lab Schedule 09/20/2019 K21.9 Gastro-esophageal reflux disease without esophagitis Mari Phan [facility] 09/20/2019 J45.20 Mild intermittent asthma, uncomp licated [facility]P 09/20/2019 G47.33 Obstructive sleep apnea (adult) (pediatric) [facility] 09/20/2019 M35.00 Sicca syndrome, unspecified [facility] HydeP 09/20/2019 Z79.02 intermodal dispatcher (current) use of antit hrombotics/antiplatelets YASMANY HydeP 09/20/2019 H81.03 Meniere's disease, bilateral [facility] Plan of Treatment Future Appointment(s):* 03/05/2021 9:00 am - [facility] at [facility] * 08/31/2020 9:20 am - [facility] at [facility] 03/01/2020 - [facility]* Z00.00 Encounter for general adult medical examination without abnormal findings * E78.00 Pure hypercholesterolemia, unspecified* Comments:* Lipid panel acceptable 02/29/2020. Tolerating statin therapy without adverse effects. * J45.20 Mild intermittent asthma, uncomplicated* Comments:* currently asymptomatic on current treatment plan of Breo * G47.33 Obstructive sleep apnea (adult) (pediatric)* Comments:* reports adherence with CPAP * M35.00 Sicca syndrome, unspecified* Comments:* doing well on Plaquenil * Z79.02 intermodal dispatcher (current) use of antithrombotics/antiplatelets* Comments:* CBC obtained, reviewed and acceptable * H81.03 Meniere's disease, bilateral* Comments:* asymptomatic currently * N95.2 Postmenopausal atrophic vaginitis* Comments:* only symptom which is bothersome is vaginal dryness. Will restart Premarin vaginal cream. * Z13.89 Encounter for screening for other disorder * All * New Medication:* Premarin 0.625 mg/GM - 1/4 applicatorful vaginally at bedtime for 14 days then three times weekly Functional Status Description No Information Available Mental Status Description No Information Available Referrals Description No Information Available
--- OUTSIDE RECORDS SUMMARY | 2020-04-13 09:11 | CCD | Continuity of Care Document ---
Author Author [facility] Organization [facility] Address Unknown Phone Unavailable Care Team Providers Care Chronic Disease Manager Name Role Phone Sedrick Salazar MD Unavailable [...] unspecified Diagnosis interpretation (observable en tity) Other equipment operator intermodal yard (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 Diagnosis inter pretation (observable entity) Erythema nodosum Diagnosis interpretation (observable entity) Sicca syndrome, unspecified Diagnosis interpretation (observable en tity) Erythema nodosum Diagnosis interpretation (observable entity) Other equipment operator intermodal yard drug therapy Diagnosis interpretation (observable e ntity) [...] Date Provider Providers Copied on Encounter [facility], [address] [place] [address], [id number], [place] tel:[phone] [facility] No Information Martin Dubose. [address] [place] [address], [id number], [place]. tel:[phone] [facility], [address] [place] [address], [id number], [place] tel:[phone] [facility] No Information Martin Dubose. [address] [place] [address], [id number], [place]. tel:[phone] [facility], [address] [place] [address], [id number], [place] tel:[phone] [facility] No Information Salina Yates. [address] [place] [address], [id number], [place]. tel:[phone] [facility], [address] [place] [address], [id number], [place] tel:[phone] [facility] Sicca syndrome, unspecifiedOther shelter (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Erythema nodosum Peggy Taylor. [address] [place] [address], [id number], [place]. tel:[phone] Referring Provider: Mari Em NP, [address], [address]. tel:[phone] [facility], [address] [place] [address], [id number], [place] tel:[phone] [facility] Sicca syndrome, unspecifiedErythema nodosumOther shelter drug therapy Tom Torres. [address] [place] [address], [id number], [place]. tel:[phone] Referring Provider: Mari Em NP, [address], [address]. tel:[phone] [facility], [address] [place] [address], [id number], [place] tel:[phone] [facility] Erythema nodosumSicca syndromeOther specified abnormal findings of blood chemistry Peggy Taylor. [address] [place] [address], [id number], [place]. tel:[phone] Referring Provider: Mari Em NP, [address], [address]. tel:[phone] [facility], [address] [place] [address], [id number], [place] tel:[phone] [facility] Erythema nodosumSicca syndromeOther specified abnormal findings of blood chemistry Peggy Taylor. [address] [place] [address], [id number], [place]. tel:[phone] Referring Provider: Mari Em NP, [address], [address]. tel:[phone] [facility], [address] [place] [address], [id number], [place] tel:[phone] [facility] Erythema nodosumSicca syndromeOther specified abnormal findings of blood chemistry Peggy aTylor. [address] [place], [place], [id number], [place]. tel:[phone] Referring Provider: Mari Em NP, [address], [address]. tel:[phone] [facility], [address] [place] [address], [id number], [place] tel:[phone] [facility] Sicca syndromeErythema nodosumOther specified abnormal findings of blood chemistry Peggy Taylor. [address] [place], [place], [id number], . tel:[phone] Referring Provider: Mari Em NP, [address] [place] [address], [id number]. tel:[phone] [facility], [address] [place] [address], [id number], [place] tel:[phone] [facility] Sicca syndromeErythema nodosum Peggy Taylor. [address] [place], [place], [id number], [place]. tel:[phone] Referring Provider: Mari Em NP, [address] [place] [address], [id number]. tel:[phone] [facility], [address] [place] [address], [id number], [place] tel:[phone] [facility] Other specified abnormal findings of blood chemistryErythema nodosumCough Mtanos Brian. [address] [place] [address], [id number], [place]. tel:[phone] Referring Provider: Mari Em NP, [address] [place] [address], [address]. tel:[phone] Family History Family Member Type Diagnosis Age At Onset Brother Problem (finding) Coronary artery disease, dom ture Sister Problem (finding) Cancer, breast Immunizations Vaccine Date Status Comments Influenza, injectable, MDCK, Flucelvax Quad Y administered Note: approx ; Source: Other Provider Influenza, injectable, quadrivalent, spl it virus, 18 years or older Afluria Quad [id number] administered Source: Other Provid er Payers Payer name Insurance type Covered alliance party ID Authorization(s ) [facility] CI [id number] Social History Type Description Quantity Date Captured [...]
--- OUTSIDE RECORDS SUMMARY | 2020-04-13 09:11 | CCD | Continuity of Care Document ---
Author Author Maggie Hyde Organization Unknown Address [address] [place] [address] Phone [phone] Care Team Providers Care Convertible Power Shovel Operator Name Role Phone Mari Em AUTM [phone] Problems Active Problems Provider Date Hyperlipidemia LANE [...] Mouth Every Day 90tabs Mari Karina Mag [facility] 08/13 Shingrix 50mcg Suspension Rec 0.5ml intramuscular repeat in 2-6 months .5ml Mari Phan [facility] 07/29/2017 Co Q 10 100mg Capsules 2 by mouth twice daily Mari Phan [facility] 07/21/2017 Plaquenil 200mg Tablets one tab by mouth once in the morning 30tabs Mari Phan [facility] 07/03/2017 Vitamin B Complex Tablets 1 by mouth every day 90tabs Mari Karina Mag [facility] 07/03/2017 Vitamin B-2 100mg Tablets 2 by mouth twice a day 120tabs Mari Phan [facility] 07/16/2016 Estroven Nighttime 3mg Capsules 1 by mouth at bedtime John Lux MD 07/16/2016 Famciclovir 250mg Tablets Take One Tablet By Mouth Twice A Day as Needed 60tabs A60.00 Mari Karina Mag [facility] 10/01/2015 B Complex Capsules 1 po qd Mari Phan [facility] 10/24/2011 Aspir-[address] 1 po qd Mari Collins Mag [facility] 10/24/2011 Vitamin D 2000Unit Capsules 1 1/2 po qd Mari Phan [facility] 10/24/2011 Vitamin C 500mg Tablets ER 1 po qd Mari Karina Hathaway [facility] 10/24/2011 Calcium 600 600mg Tablets 1 p o qd [facility] 10/24/2011 Sophia-3 1000mg Capsules 1 Tab tid Mari Karina Mag [facility] 10/24/2011 Multi For Her 50+ Capsules 1 po qd [facility] 10/24/2011 Proair Respiclick 10 8(90Base) mcg/Act Aerosol one to two puffs four times a day or as needed for cough or shortness of breath and before exercising. Unknown Cranberry 500mg Capsules 2 by mouth every day Unknown Rabeprazole Sodium 20mg Tablets DR Take One Tablet By Mouth Every Day 90tabs [facility] 0 Breo Ellipta 100-25mcg/Inh Aerosol inhale one [...] Vaccine Lot # U-Flu Given 01/04/2019 Influenza,Unspecified 22233 Given 01/07/2018 Influenza Virus Vaccine, Quadrivalent (Cciiv4), Derived From Cell [id number] Q2037 Given 01/09/2016 Fluvirin Virus Vaccine 69921 01 Q2037 Given 01/06/2014 Fluvirin Virus Vaccine 26602 01 Q2037 Given 02/16/2013 Fluvirin Virus Vaccine [...] Date Facility Test Result H/L Range Note PapIG, HPV, rfx 16/18 03/01/2020 [facility] [place] Pap Ig LB & HPV HR W/RFX Renata 16,18 TNP HPV, low volume rfx Negative Negative 1 Laboratory test finding 03/01/2020 [facility] [place] PDF [id number] SEE IMAGE Complete Blood Count 02/29/2020 [facility] Solid Waste Technician: [place] [address] [phone] WBC 5.9 x10*3/UL 4.1 - 10.9 RBC [...] 2.0 - 7.8 Comprehensive Chem Profile 02/29/2020 [facility], Solid Waste Technician: [place] [address] [phone] Glucose 92 mg/dL 74 - 99 2 BUN 17 mg/dL 7 - 18 Creatinine [...] mL/min >60 GFR >= 60 mL/min >60 3 Lipid Profile 02/29/2020 [facility] Solid Waste Technician: [place] [address] [phone] Cholesterol 185 mg/dL 131 - 200 Triglycerides 82 mg/dL 30 - 150 HDL Cholesterol 68 mg/dL High 35 - 60 LDL (Calculated) 101 CALC 50 - 159 1 This nucleic acid amplificat ion test detects fourteen high-risk HPV types (16,18,31,33,35,39,45,51,52,56,58,59,66,68) without differentiation. 2 100-125 mg/dL PRE-DIABET ES/FASTING >126 mg/dL DIABETES/FASTING 3 CHRONIC KIDNEY DISEASE STAGI NG PER NKF STAGE I & II GFR >= 60 NORMAL TO MILDLY DECREASED STAGE III GFR 30-59 MODERATELY DECREASED STAGE IV GFR 15-29 SEVERELY DECREASED STAGE V GFR <15 VERY LITTLE GFR LEFT ESRD GFR <15 ON ELECTRICITY TRADER Procedures Date Code Description Status 04/18/2019 [id number] Mammogram Completed 09/14/2018 [id number] Colonoscopy Completed 02/23/2018 [id number] Mammogram Completed 02/17/2017 [id number] Mammogram Completed 02/01/2016 [id number] Mammogram Completed Medical Devices Description No Information Available Encounters Type Date Location Provider Dx Diagnosis Office Visit 03/01/2020 10:00a [facility] Mari Cuadra, [facility] Z00.00 Encntr for general adult medical exam w/ o abnormal findings E78.00 Pure hypercholesterolemia, u nspecified J45.20 Mild intermittent asthma, un complicated G47.33 Obstructive sleep apnea (jessica lt) (pediatric) M35.00 Sicca syndrome, unspecified Z79.02 termite treater helper (current) use of a ntithrombotics/antiplatelets H81.03 Meniere's disease, bilateral N95.2 Postmenopausal atrophic vagi nitis Z13.89 Encounter for screening for other disorder Office Visit 09/20/2019 11:20a [facility] Mari Cuadra, [facility] K21.9 Gastro-esophageal reflux disease without esophagitis J45.20 Mild intermittent asthma, un complicated G47.33 Obstructive sleep apnea (jessica lt) (pediatric) M35.00 Sicca syndrome, unspecified Z79.02 care home (current) use of a ntithrombotics/antiplatelets H81.03 Meniere's disease, bilateral Assessments Date Code Description Provider 03/01/2020 Z00.00 Encounter for genera l adult medical examination without abnormal findings [facility] 03/01/2020 E78.00 Pure hypercholesterolemia, unspe cified [facility] 03/01/2020 J45.20 Mild intermittent asthma, uncomp licated [facility] 03/01/2020 G47.33 Obstructive sleep apnea (adult) (pediatric) Mari Phan, [facility] 03/01/2020 M35.00 Sicca syndrome, unspecified Mari Phan, [facility] 03/01/2020 Z79.02 care home (current) use of antit hrombotics/antiplatelets Mari Phan, [facility] 03/01/2020 H81.03 Meniere's disease, bilateral Mari Phan, [facility] 03/01/2020 N95.2 Postmenopausal atrophic vaginiti s Mari Phan, [facility] 03/01/2020 Z13.89 Encounter for screening for othe r disorder Mari Phan, [facility] 02/29/2020 K21.9 Gastro-esophageal reflux disease without esophagitis Mari hPan, [facility] 02/29/2020 K21.9 Gastro-esophageal reflux disease without esophagitis Lab Schedule 02/29/2020 E78.00 Pure hypercholesterolemia, unspe cified Mari Phan, [facility] 02/29/2020 E78.00 Pure hypercholesterolemia, unspe cified Lab Schedule 09/20/2019 K21.9 Gastro-esophageal reflux disease without esophagitis Mari Phan, [facility] 09/20/2019 J45.20 Mild intermittent asthma, uncomp licated Mari Phan, [facility] 09/20/2019 G47.33 Obstructive sleep apnea (adult) (pediatric) Mari Phan, [facility] 09/20/2019 M35.00 Sicca syndrome, unspecified Mari Phan, [facility] 09/20/2019 Z79.02 care home (current) use of antit hrombotics/antiplatelets Mari Phan, [facility] 09/20/2019 H81.03 Meniere's disease, bilateral [facility] Plan of Treatment Future Appointment(s):* 03/05/2021 9:00 am - [facility] at [facility] * 08/31/2020 9:20 am - [address] at [facility] 03/01/2020 - [facility]* Z00.00 [...] Comments:* doing well on Plaquenil * Z79.02 care home (current) use of antithrombotics/antiplatelets* Comments:* CBC obtained, [...]
--- OUTSIDE RECORDS SUMMARY | 2020-04-13 09:12 | CCD | Continuity of Care Document ---
Author Author Lab Schedule, Maggie Dumont Organization Unknown Address [address] [place] [phone] Phone Unavailable Care Team Providers Care Customer Relations Advisor Name Role Phone MaritzaMari ken Gin ANP AUTM [phone] Problems Active Problems Provider Date Hyperlipidemia LANE [...] SIG Qnty Indications Ordering Provide r Date Montelukast Sodium 10mg Tablets Take One Tablet By Mouth AT Bedtime 90tabs [facility] 01/15 Magnesium 400mg Tablets 1 by mouth every night at bedtime [facility] 11/20/2017 Azelastine HCL (Nasal) 0.1% Soluti on two sprays in each nostril once daily 90ml Prosper Hyde NP 11/20/2017 Rosuvastatin Calcium 10mg Tablets Take One Tablet By Mouth Every Day 90tabs [facility] 08/13 Shingrix 50mcg Suspension Rec 0.5ml intramuscular repeat in 2-[address] [facility] 07/29/2017 Co Q 10 100mg Capsules 2 by mouth twice daily Mari Phan, [facility] 07/21/2017 Plaquenil 200mg Tablets one tab by mouth once in the morning [facility]tabs [facility]2017 Vitamin B Complex Tablets 1 by mouth every day 90tabs Mari Phan [facility] 07/03/2017 Vitamin B-2 100mg Tablets 2 by mouth twice a day 120tabs Mari Phan [facility] 07/16/2016 Estroven Nighttime 3mg Capsules 1 by mouth at bedtime John Lux MD 07/16/2016 Famciclovir 250mg Tablets Take One Tablet By Mouth Twice A Day as Needed 60tabs A60.00 Mari Karina Mag [facility] 10/01/2015 B Complex Capsules 1 po qd Mari Collins Mag [facility] 10/24/2011 Aspir-[address] 1 po qd Mari Collins Mag [facility] 10/24/2011 Vitamin D 2000Unit Capsules 1 1/2 po qd Mari Phan [facility] 10/24/2011 Vitamin C 500mg Tablets ER 1 po qd Mari Phan [facility] 10/24/2011 Calcium 600 600mg Tablets 1 p o qd Mari Collins Mag [facility] 10/24/2011 [place]-3 1000mg Capsules 1 Tab tid Mari Phan [facility] 10/24/2011 Multi For Her 50+ Capsules 1 po qd Mari Karina Mag [facility] 10/24/2011 Proair Respiclick 10 8(90Base) mcg/Act Aerosol one to two puffs four times a day or as needed for cough or shortness of breath and before exercising. Unknown Cranberry 500mg Capsules 2 by mouth every day Unknown Rabeprazole Sodium 20mg Tablets DR Take One Tablet By Mouth Every Day 90tabs [facility] Breo Ellipta 100-25mcg/Inh Aerosol inhale [...] Vaccine Lot # U-Flu Given 01/04/2019 Influenza,Unspecified 32463 Given 01/07/2018 Influenza Virus Vaccine, Quadrivalent (Cciiv4), Derived From Cell [id number] Q2037 Given 01/09/2016 Fluvirin Virus Vaccine 21770 01 Q2037 Given 01/06/2014 Fluvirin Virus Vaccine 40991 01 Q2037 Given 02/16/2013 Fluvirin Virus Vaccine [...] Date Facility Test Result H/L Range Note Complete Blood Count 02/29/2020 [facility] Resin Remover: [place] [address] [phone] WBC 5.9 x10*3/UL 4.1 - 10.9 RBC [...] 2.0 - 7.8 Comprehensive Chem Profile 02/29/2020 [facility], Resin Remover: [place] [address] [phone] Glucose 92 mg/dL 74 - 99 1 [...] 60 mL/min >60 2 Lipid Profile 02/29/2020 [facility] Resin Remover: Dr Cristian Cih [place] [id number] [phone] Cholesterol 185 mg/dL 131 - 200 Triglycerides [...] LITTLE GFR LEFT ESRD GFR <15 ON WEATHER [place] Procedures Date Code Description Status 04/18/2019 [id number] Mammogram Completed 09/14/2018 [id number] Colonoscopy Completed 02/23/2018 [id number] Mammogram Completed 02/17/2017 [id number] Mammogram Completed 02/01/2016 [id number] Mammogram Completed Medical Devices Description No Information Available Encounters Type Date Location Provider Dx Diagnosis Office Visit 09/20/2019 11:20a [facility] Mari Cuadra, [facility] K21.9 Gastro-esophageal reflux disease without esophagitis J45.20 Mild intermittent asthma, un complicated G47.33 Obstructive sleep apnea (jessica lt) (pediatric) M35.00 Sicca syndrome, unspecified Z79.02 [facility] (current) use of a ntithrombotics/antiplatelets H81.03 Meniere's disease, bilateral Assessments Date Code Description Provider 02/29/2020 K21.9 Gastro-esophageal reflux disease without esophagitis Mari Phan [facility] 02/29/2020 K21.9 Gastro-esophageal reflux disease without esophagitis Lab Schedule 02/29/2020 E78.00 Pure hypercholesterolemia, unspe cified [place]AS[place]Y [facility]P 02/29/2020 E78.00 Pure hypercholesterolemia, unspe cified Lab Schedule 09/20/2019 K21.9 Gastro-esophageal reflux disease without esophagitis [facility] 09/20/2019 J45.20 Mild intermittent asthma, uncomp licated [facility] 09/20/2019 G47.33 Obstructive sleep apnea (adult) (pediatric) [facility] 09/20/2019 M35.00 Sicca syndrome, unspecified [facility] 09/20/2019 Z79.02 [facility] (current) use of antit hrombotics/antiplatelets ALNE Hyde 09/20/2019 H81.03 Meniere's disease, bilateral [facility] Plan of Treatment 03/01/2020 - [facility]* All * New Xrays:* 3D Bi-Lateral Mammogram, Ordered: 03/01/20 Functional Status Description No Information Available Mental Status Description No Information Available Referrals Description No Information Available
--- OUTSIDE RECORDS SUMMARY | 2020-04-13 09:12 | CCD | Continuity of Care Document ---
Author Author Lab Schedule, Maggie Dumont Organization Unknown Address [address] [place] [phone] Phone Unavailable Care Team Providers Care Employment Director Name Role Phone Mari Em Gin MCBRIDE AUTM [phone] Problems Active Problems Provider Date Hyperlipidemia LANE [...] SIG Qnty Indications Ordering Provide r Date Yuvafem 10mcg Tablets Insert One Tablet Vaginally Three Times A Week 36tabs [facility] Montelukast Sodium 10mg Tablets Take One Tablet [...] intramuscular repeat in 2-6 months .5ml Mari Collins Mag [facility] 07/29/2017 Co Q 10 100mg Capsules 2 by mouth twice daily Mari Collins Mag [facility] 07/21/2017 Plaquenil 200mg Tablets one tab by mouth twice daily but first week once a day. 30tabs Mari Cuadra, [facility] 07/03/2017 Vitamin B Complex Tablets 1 by mouth every day 90tabs Mari Collins Mag [facility] 07/03/2017 Vitamin B-2 100mg Tablets 2 by mouth twice a day 120tabs Mari Phan [facility] 07/16/2016 Estroven Nighttime 3mg Capsules 1 by mouth at bedtime John Lux MD 07/16/2016 Famciclovir 250mg Tablets Take One Tablet By Mouth Twice A Day as Needed 60tabs A60.00 Mari Phan [facility] 10/01/2015 B Complex Capsules 1 po qd Mari Phan [facility] 10/24/[address]ir-[address] 1 po qd Mari Collins Mag [facility] 10/24/2011 Vitamin D 2000Unit Capsules 1 1/2 po qd Mari Collins Mag [facility] 10/24/2011 Vitamin C 500mg Tablets ER 1 po qd Mari Collins Mag [facility] 10/24/2011 Calcium 600 600mg Tablets 1 p o qd Mari Collins Mag [facility] 10/24/2011 [place]-3 1000mg Capsules 1 Tab tid Mari Collins Mag [facility] 10/24/2011 Multi For Her 50+ Capsules 1 po qd Mari Phan [facility] 10/24/2011 Proair Respiclick 10 8(90Base) mcg/Act Aerosol one to two puffs four times a day or as needed for cough or shortness of breath and before exercising. Unknown Cranberry 500mg Capsules 2 by mouth every day Unknown Ketorolac Tromethamine 10mg Tablet s 1 tab by mouth twice a day as needed Unknown 0 [address] S[address] Take One Tablet By Mouth Every Day 90tabs [facility] Breo Ellipta 100-25mcg/Inh Aerosol inhale one puff by mouth every day Switches to 200 with URI R05 Unknown Zyrtec Allergy 10mg Tablets 1 by mouth every day Unknown Medications Administered in Office Medication SIG Qnty Indications Ordering Provider Date Immunization Adminstration,1 Vaccine/Tox oid Injection [facility] 01/07/2018 Immunizations CPT Code Status Date Vaccine Lot # U-Flu Given 01/04/2019 Influenza,Unspecified 69498 Given 01/07/2018 Influenza Virus Vaccine, Quadrivalent (Cciiv4), Derived From Cell [id number] Q2037 Given 01/09/2016 Fluvirin Virus Vaccine 59486 01 Q2037 Given 01/06/2014 Fluvirin Virus Vaccine 78605 01 Q2037 Given 02/16/2013 Fluvirin Virus Vaccine Vital Signs Date Vital Result Comment 09/20/2019 11:33am BP Systolic 120 mmHg BP Diastolic 70 mmHg Heart Rate 78 /min Height 64 inches 5'4" Weight 148.00 lb O2 % BldC Oximetry 97 % BMI (Body Mass Index) 25.4 kg/m2 05/19/2019 9:22am BP Systolic 134 mmHg BP Diastolic 80 mmHg Heart Rate 86 /min Height 64 inches 5'4" Weight 150.00 lb O2 % BldC Oximetry 96 % BMI (Body Mass Index) 25.7 kg/m2 Results Test Acquired Date Facility Test Result H/L Range Note Complete Blood Count 02/29/2020 [facility] Signal Fitter: [place] [address] [phone] WBC 5.9 x10*3/UL 4.1 - 10.9 RBC [...] 2.0 - 7.8 Comprehensive Chem Profile 02/29/2020 [facility], Signal Fitter: Dr Cristian Chi [place], [place] [id number] [phone] Glucose 92 mg/dL 74 - 99 1 [...] 60 mL/min >60 2 Lipid Profile 02/29/2020 [facility] , Signal Fitter: Dr Cristian Chi [place], [place] [id number] [phone] Cholesterol 185 mg/dL 131 - 200 Triglycerides [...] LITTLE GFR LEFT ESRD GFR <15 ON MEDICAL BILLING ASSISTANT Procedures Date Code Description Status 04/18/2019 [id number] Mammogram Completed 09/14/2018 [id number] Colonoscopy Completed 02/23/2018 [id number] Mammogram Completed 02/17/2017 [id number] Mammogram Completed 02/01/2016 [id number] Mammogram Completed Medical Devices Description No Information Available Encounters Type Date Location Provider Dx Diagnosis Office Visit 09/20/2019 11:20a [facility] Mari Cuadra, [facility] K21.9 Gastro-esophageal reflux disease without esophagitis J45.20 Mild intermittent asthma, un complicated G47.33 Obstructive sleep apnea (jessica lt) (pediatric) M35.00 Sicca syndrome, unspecified Z79.02 nursing home (current) use of a ntithrombotics/antiplatelets H81.03 Meniere's disease, bilateral Assessments Date Code Description Provider 02/29/2020 K21.9 Gastro-esophageal reflux disease without esophagitis YASMANY [facility]P 02/29/2020 K21.9 Gastro-esophageal reflux disease without esophagitis Lab Schedule 02/29/2020 E78.00 Pure hypercholesterolemia, unspe cified [facility] 02/29/2020 E78.00 Pure hypercholesterolemia, unspe cified Lab Schedule 09/20/2019 K21.9 Gastro-esophageal reflux disease without esophagitis [facility] 09/20/2019 J45.20 Mild intermittent asthma, uncomp licated [facility] 09/20/2019 G47.33 Obstructive sleep apnea (adult) (pediatric) [facility] 09/20/2019 M35.00 Sicca syndrome, unspecified [facility] 09/20/2019 Z79.02 nursing home (current) use of antit hrombotics/antiplatelets [facility] 09/20/2019 H81.03 Meniere's disease, bilateral [facility] Plan of Treatment 09/20/2019 - [facility]* K21.9 Gastro-esophageal reflux disease without esophagitis* Comments:* currently asymptomatic on Rabeprazole. * J45.20 Mild intermittent asthma, uncomplicated* Comments:* currently asymptomatic on current treatment plan. * G47.33 Obstructive sleep apnea (adult) (pediatric)* Comments:* reports adherence with CPAP * M35.00 Sicca syndrome, unspecified* Comments:* Remains on Plaquenil and is tolerating. 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 * H81.03 Meniere's disease, bilateral* Comments:* has seen ENT as has lost hearing in her right ear. Functional Status Description No Information Available Mental Status Description No Information Available Referrals Description No Information Available
--- OUTSIDE RECORDS SUMMARY | 2020-04-13 09:12 | CCD | Continuity of Care Document ---
Author Author Maggie Hyde Organization Unknown Address [address] [address] Phone [phone] Care Team Providers Care Automotive Shop Foreman Name Role Phone Mari Em AUTM [phone] Problems Active Problems Provider Date Hyperlipidemia LANE [...] Mouth Every Day 90tabs Mari Karina Mag [facility] 08/13 Shingrix 50mcg Suspension Rec 0.5ml intramuscular repeat in 2-6 months .5ml Mari Phan [facility] 07/29/2017 Co Q 10 100mg Capsules 2 by mouth twice daily Mari Phan [facility] 07/21/2017 Plaquenil 200mg Tablets one tab by mouth once in the morning 30tabs Mari Phan [facility] 07/03/2017 Vitamin B Complex Tablets 1 by mouth every day 90tabs Mari Karina Mag [facility] 07/03/2017 Vitamin B-2 100mg Tablets 2 by mouth twice a day 120tabs Mari Phan [facility] 07/16/2016 Estroven Nighttime 3mg Capsules 1 by mouth at bedtime John Lux MD 07/16/2016 Famciclovir 250mg Tablets Take One Tablet By Mouth Twice A Day as Needed 60tabs A60.00 Mari Karina Mag [facility] 10/01/2015 B Complex Capsules 1 po qd Mari Phan [facility] 10/24/[address] Aspir-[address] 1 po qd Mari Collins Mag [facility] 10/24/2011 Vitamin D 2000Unit Capsules 1 1/2 po qd Mari Phan [facility] 10/24/2011 Vitamin C 500mg Tablets ER 1 po qd Mari Karina Hathaway [facility] 10/24/2011 Calcium 600 600mg Tablets 1 p o qd [facility] 10/24/2011 [place]-3 1000mg Capsules 1 Tab tid Mari Karina Mag [facility] 10/24/2011 Multi For Her 50+ Capsules 1 po qd [facility] 10/[facility]/2011 Proair Respiclick 10 8(90Base) mcg/Act Aerosol one to two puffs four times a day or as needed for cough or shortness of breath and before exercising. Unknown Cranberry 500mg Capsules 2 by mouth every day Unknown Rabeprazole Sodium 20mg Tablets DR Take One Tablet By Mouth Every Day 90tabs [facility] Breo Ellipta 100-25mcg/Inh Aerosol inhale [...] Vaccine Lot # U-Flu Given 01/04/2019 Influenza,Unspecified 61924 Given 01/07/2018 Influenza Virus Vaccine, Quadrivalent (Cciiv4), Derived From Cell [id number] Q2037 Given 01/09/2016 Fluvirin Virus Vaccine 71169 01 Q2037 Given 01/06/2014 Fluvirin Virus Vaccine 35960 01 Q2037 Given 02/16/2013 Fluvirin Virus Vaccine [...] H/L Range Note Complete Blood Count 02/29/2020 [facility] Rehabilitation Therapy Technician: [place] [address] [phone] WBC 5.9 x10*3/UL 4.1 - 10.9 RBC [...] 2.0 - 7.8 Comprehensive Chem Profile 02/29/2020 [facility], Rehabilitation Therapy Technician: Dr Cristian Chi [place], [place] [id number] [phone] Glucose 92 mg/dL 74 - 99 1 [...] 60 mL/min >60 2 Lipid Profile 02/29/2020 [facility] , Rehabilitation Therapy Technician: [place] [address] [phone] Cholesterol 185 mg/dL 131 - 200 Triglycerides [...] LITTLE GFR LEFT ESRD GFR <15 ON [employer] Procedures Date Code Description Status 04/18/2019 [id number] Mammogram Completed 09/14/2018 [id number] Colonoscopy Completed 02/23/2018 [id number] Mammogram Completed 02/17/2017 [id number] Mammogram Completed 02/01/2016 [id number] Mammogram Completed Medical Devices Description No Information Available Encounters Type Date Location Provider Dx Diagnosis Office Visit 09/20/2019 11:20a [facility] Mari Cuadra, [facility] K21.9 Gastro-esophageal reflux disease without esophagitis J45.20 Mild intermittent asthma, un complicated G47.33 Obstructive sleep apnea (jessica lt) (pediatric) M35.00 Sicca syndrome, unspecified Z79.02 skilled nursing (current) use of a ntithrombotics/antiplatelets H81.03 Meniere's disease, bilateral Assessments Date Code Description Provider 02/29/2020 K21.9 Gastro-esophageal reflux disease without esophagitis [facility] 02/29/2020 K21.9 Gastro-esophageal reflux disease without esophagitis Lab Schedule 02/29/2020 E78.00 Pure hypercholesterolemia, unspe cified [facility] 02/29/2020 E78.00 Pure hypercholesterolemia, unspe cified Lab Schedule 09/20/2019 K21.9 Gastro-esophageal reflux disease without esophagitis [facility] 09/20/2019 J45.20 Mild intermittent asthma, uncomp licated [facility] 09/20/2019 G47.33 Obstructive sleep apnea (adult) (pediatric) [facility] 09/20/2019 M35.00 Sicca syndrome, unspecified [facility] 09/20/2019 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
--- OUTSIDE RECORDS SUMMARY | 2020-04-13 09:12 | CCD | Continuity of Care Document ---
Author Author Lab Schedule, Maggie Dumont Organization Unknown Address [address] [place] [phone] Phone Unavailable Care Team Providers Care Stage Settings Painter Name Role Phone Mari Em Gin MCBRIDE AUTM [phone] Problems Active Problems Provider Date Hyperlipidemia LANE [...] in 2-6 months .5ml Mari Collins Mag [facility] 07/29/2017 Co Q 10 100mg Capsules 2 by mouth twice daily Mari Collins Mag [facility] 07/21/2017 Plaquenil 200mg Tablets one tab by mouth twice daily but first week once a day. 30tabs Mari Cuadra, [facility] 07/03/2017 Vitamin B Complex Tablets 1 by mouth every day 90tabs Mari Collins Mag [facility] 07/03/2017 Vitamin B-2 100mg Tablets 2 by mouth twice a day 120tabs Mari Phan [facility] 07/16/2016 Estroven Nighttime 3mg Capsules 1 by mouth at bedtime John Lux MD 07/16/2016 Famciclovir 250mg Tablets Take One Tablet By Mouth Twice A Day as Needed 60tabs A60.00 Mari Phan [facility] 10/01/2015 B Complex Capsules 1 po qd Mari Phan [facility] 10/24/[address] Aspir-[address] 1 po qd Mari Collins Mag [facility] 10/24/2011 Vitamin D 2000Unit Capsules 1 1/2 po qd Mari Collins Mag [facility] 10/24/2011 Vitamin C 500mg Tablets ER 1 po qd Mari Collins Mag [facility] 10/24/2011 Calcium 600 600mg Tablets 1 p o qd Mari Collins Mag [facility] 10/24/2011 [place]-3 1000mg Capsules 1 Tab tid Mari Collins Mag [facility] 10/24/2011 Multi For Her 50+ Capsules 1 po qd Mari Phan [facility] 10/24/2011 Proair Respiclick 10 8(90Base) mcg/Act [...] By Mouth Every Day 90tabs [facility] Breo Ellipta 100-25mcg/Inh Aerosol inhale one puff by mouth every day Switches to 200 with URI R05 Unknown Zyrtec Allergy 10mg Tablets 1 by mouth every day Unknown Medications Administered in Office Medication SIG Qnty Indications Ordering Provider Date Immunization Adminstration,1 Vaccine/Tox oid Injection [facility] 01/07/2018 Immunizations CPT Code Status Date Vaccine Lot # U-Flu Given 01/04/2019 Influenza,Unspecified 02736 Given 01/07/2018 Influenza Virus Vaccine, Quadrivalent (Cciiv4), Derived From Cell [id number] Q2037 Given 01/09/2016 Fluvirin Virus Vaccine 90667 01 Q2037 Given 01/06/2014 Fluvirin Virus Vaccine 30674 01 Q2037 Given 02/16/2013 Fluvirin Virus Vaccine [...] BMI (Body Mass Index) 25.7 kg/m2 Results Description No Information Available Procedures Date Code Description Status 04/18/2019 [id number] Mammogram Completed 09/14/2018 [id number] Colonoscopy Completed 02/23/2018 [id number] Mammogram Completed 02/17/2017 [id number] Mammogram Completed 02/01/2016 [id number] Mammogram Completed Medical Devices Description No Information Available Encounters Type Date Location Provider Dx Diagnosis Office Visit 09/20/2019 11:20a [facility] 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/antiplatelets H81.03 Meniere's disease, bilateral Assessments Date Code Description Provider 09/20/2019 K21.9 Gastro-esophageal reflux disease without esophagitis [facility] 09/20/2019 J45.20 Mild intermittent asthma, uncomp licated [facility] 09/20/2019 G47.33 Obstructive sleep apnea (adult) (pediatric) [facility] 09/20/2019 M35.00 Sicca syndrome, unspecified [facility] 09/20/2019 Z79.02 prison (current) use of antit hrombotics/antiplatelets [facility] 09/20/2019 H81.03 Meniere's disease, bilateral [facility] Plan of Treatment Future Appointment(s):* 03/01/2020 10:00 am - [facility] at [facility] 09/20/2019 - [facility]* K21.9 Gastro-esophageal reflux disease without esophagitis* Comments:* currently asymptomatic on Rabeprazole. * J45.20 Mild intermittent asthma, uncomplicated* Comments:* currently asymptomatic on current treatment plan. * G47.33 Obstructive sleep apnea (adult) (pediatric)* Comments:* reports adherence with CPAP * M35.00 Sicca syndrome, unspecified* Comments:* Remains on Plaquenil and is tolerating. 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 * H81.03 Meniere's disease, bilateral* Comments:* has seen ENT as has lost hearing in her right ear. Functional Status Description No Information Available Mental Status Description No Information Available Referrals Description No Information Available
--- OUTSIDE RECORDS SUMMARY | 2020-04-13 09:13 | CCD ---
Author Author [facility] Address Unknown Phone Unavailable Care Team Providers Care Reconditioning Associate Name Role Phone DINESH HARTMAN MD Unavailable Unavailable DINESH HARTMAN MD Unavailable Unavailable DINESH HARTMAN MD Unavailable Unavailable DINESH HARTMAN MD Unavailable Unavailable DINESH HARTMAN MD Unavailable Unavailable DINESH HARTMAN MD Unavailable Unavailable DINESH HARTMAN MD Unavailable Unavailable DINESH HARTMAN MD Unavailable Unavailable DINESH HARTMAN MD Unavailable Unavailable DINESH HARTMAN MD Unavailable Unavailable DINESH HARTMAN MD Unavailable Unavailable DINESH HARTMAN MD Unavailable Unavailable DINESH HARTMAN MD Unavailable Unavailable DINESH HARTMAN MD Unavailable Unavailable DINESH HARTMAN MD Unavailable Unavailable DINESH HARTMAN MD Unavailable Unavailable DINESH HARTMAN MD Unavailable Unavailable DINESH HARTMAN MD Unavailable Unavailable DINESH HARTMAN MD Unavailable Unavailable DINESH HARTMAN MD Unavailable Unavailable DINESH HARTMAN MD Unavailable Unavailable CHRDINESH BILLS MD Unavailable Unavailable CHRDINESH BILLS MD Unavailable Unavailable DINESH HARTMAN MD Unavailable Unavailable CHROSTDINESH BRISCOE MD Unavailable Unavailable CHROSTDINESH BRISCOE MD Unavailable Unavailable CHROSTDINESH BRISCOE MD Unavailable Unavailable CHROSTDINESH BRISCOE MD Unavailable Unavailable CHROSTDINESH BRISCOE MD Unavailable Unavailable CHROSTDINESH BRISCOE MD Unavailable Unavailable CHROSTDINESH BRISCOE MD Unavailable Unavailable CHROSTDINESH BRISCOE MD Unavailable Unavailable CHROSTDINESH BRISCOE MD Unavailable Unavailable CHROSTDINESH BRISCOE MD Unavailable Unavailable CHROSTDINESH BRISCOE MD Unavailable Unavailable CHROSTDINESH BRISCOE MD Unavailable Unavailable CHROSTDINESH BRISCOE MD Unavailable Unavailable DINESH HARTMAN MD Unavailable Unavailable MYRANDAOSTDINESH BRISCOE MD Unavailable Unavailable DINESH HARTMAN MD Unavailable Unavailable Prosper Salazar MD Unavailable Unavailable Prosper Salazar MD Unavailable Unavailable Prosper Salazar MD Unavailable Unavailable Prosper Salazar MD Unavailable Unavailable Prosper Salazar MD Unavailable Unavailable Prosper Salazar MD Unavailable Unavailable Prosper Salazar MD Unavailable Unavailable Prosper Salazar MD Unavailable Unavailable Prosper Salazar MD Unavailable Unavailable Prosper Salazar MD Unavailable Unavailable Prosper aSlazar MD Unavailable Unavailable Prosper Salazar MD Unavailable Unavailable Prosper Salazar MD Unavailable Unavailable Prosper Salazar MD Unavailable Unavailable Prosper Salazar MD Unavailable Unavailable Prosper Salazar MD Unavailable Unavailable Prosper Salazar MD Unavailable Unavailable Prosper Salazar MD Unavailable Unavailable Prosper Salazar MD Unavailable Unavailable Prosper Salazar MD Unavailable Unavailable Prosper Salazar MD Unavailable Unavailable Prosper Salazar MD Unavailable Unavailable Prosper Salazar MD Unavailable Unavailable Prosper Salazar MD Unavailable Unavailable Prosper Salazar MD Unavailable Unavailable Prosper Salazar MD Unavailable Unavailable Prosper Salazar MD Unavailable Unavailable Prosper Salazar MD Unavailable Unavailable Prosper Salazar MD Unavailable Unavailable Prosper Salazar MD Unavailable Unavailable Prosper Salazar MD Unavailable Unavailable Prosper Salazar MD Unavailable Unavailable Prosper Salazar MD Unavailable Unavailable Prosper Salazar MD Unavailable Unavailable Prosper Salazar MD Unavailable Unavailable Prosper Salazar MD Unavailable Unavailable Prosper Salazar MD Unavailable Unavailable Prosper Salazar MD Unavailable Unavailable Prosper Salazar MD Unavailable Unavailable Prosper Salazar MD Unavailable Unavailable Prosper Salazar MD Unavailable Unavailable Prosper Salazar MD Unavailable Unavailable Prosper Salazar MD Unavailable Unavailable Prosper Salazar MD Unavailable Unavailable Prosper Salazar MD Unavailable Unavailable Prosper Salazar MD Unavailable Unavailable Prosper Salazar MD Unavailable Unavailable Prosper Salazar MD Unavailable Unavailable Prosper Salazar MD Unavailable Unavailable Prosper Salazar MD Unavailable Unavailable Prosper Salazar MD Unavailable Unavailable Prosper Salazar MD Unavailable Unavailable Prosper Salazar MD Unavailable Unavailable Prosper Salazar MD Unavailable Unavailable Prosper Salazar MD Unavailable Unavailable Prosper Salazar MD Unavailable Unavailable Prosper Salazar MD Unavailable Unavailable Prosper Salazar MD Unavailable Unavailable Prosper Salazar MD Unavailable Unavailable Prosper Salazar MD Unavailable Unavailable Prosper Salazar MD Unavailable Unavailable Prosper Salazar MD Unavailable Unavailable Prosper Salazar MD Unavailable Unavailable Prosper Salazar MD Unavailable Unavailable Prosper Salazar MD Unavailable Unavailable Prosper Salazar MD Unavailable Unavailable Prosper Salazar MD Unavailable Unavailable Prosper Salazar MD Unavailable Unavailable Prosper Salazar MD Unavailable Unavailable Prosper Salazar MD Unavailable Unavailable Prosper Salazar MD Unavailable Unavailable Prosper Salazar MD Unavailable Unavailable Prosper Salazar MD Unavailable Unavailable Prosper Salazar MD Unavailable Unavailable Prosper Salazar MD Unavailable Unavailable Prosper Salazar MD Unavailable Unavailable Prosper Salazar MD Unavailable Unavailable Prosper Salazar MD Unavailable Unavailable Prosper Salazar MD Unavailable Unavailable Prosper Salazar MD Unavailable Unavailable Prosper Salazar MD Unavailable Unavailable Prosper Salazar MD Unavailable Unavailable Prosper Salazar MD Unavailable Unavailable Prosper Salazar MD Unavailable Unavailable Prosper Salazar MD Unavailable Unavailable Prosper Salazar MD Unavailable Unavailable Prosper Salazar MD Unavailable Unavailable Fish, Edita Minayaen MPAS, PA-C Unavailable Unavailabl e Fish, Edita Stephanie MPAS, PA-C Unavailable Unavailabl e Fish, Edita Stephanie MPAS, PA-C Unavailable Unavailabl e Fish, Edita Stephanie MPAS, PA-C Unavailable Unavailabl e Fish, Edita Stephanie MPAS, PA-C Unavailable Unavailabl e Fish, Edita Stephanie MPAS, PA-C Unavailable Unavailabl e Fish, Edita Stephanie MPAS, PA-C Unavailable Unavailabl e Fish, [facility], PA-C Unavailable Unavailabl e Fish, [facility], PA-C Unavailable Unavailabl e Fish, [facility], PA-C Unavailable Unavailabl e Fish, [facility], PA-C Unavailable Unavailabl e Fish, [facility], PA-C Unavailable Unavailabl e Fish, [facility], PA-C Unavailable Unavailabl e Fish, [facility], PA-C Unavailable Unavailabl e Fish, [facility], PA-C Unavailable Unavailabl e Fish, [facility], PA-C Unavailable Unavailabl e Fish, [facility], PA-C Unavailable Unavailabl e Fish, [facility], PA-C Unavailable Unavailabl e Fish, [facility], PA-C Unavailable Unavailabl e Fish, [facility], PA-C Unavailable Unavailabl e Fish, [facility], PA-C Unavailable Unavailabl e Fish, [facility], PA-C Unavailable Unavailabl e Fish, [facility], PA-C Unavailable Unavailabl e Fish, [facility], PA-C Unavailable Unavailabl e Fish, [facility], PA-C Unavailable Unavailabl e Fish, [facility], PA-C Unavailable Unavailabl e Fish, [facility], PA-C Unavailable Unavailabl e Fish, [facility], PA-C Unavailable Unavailabl e Fish, [facility], PA-C Unavailable Unavailabl e Fish, [facility], PA-C Unavailable Unavailabl e Fish, [facility], PA-C Unavailable Unavailabl e Fish, [facility], PA-C Unavailable Unavailabl e Fish, [facility], PA-C Unavailable Unavailabl e Brian Santos MD Unavailable Unavailable Brian Santos MD Unavailable Unavailable Brian Santos MD Unavailable Unavailable Brian Santos MD Unavailable Unavailable Brian Santos MD Unavailable Unavailable Brian Santos MD Unavailable Unavailable Brian Santos MD Unavailable Unavailable Brian Santos MD Unavailable Unavailable Brian Santos MD Unavailable Unavailable MtanosBrian MD Unavailable Unavailable MtanosBrian MD Unavailable Unavailable MtanosBrian MD Unavailable Unavailable MtanosBrian MD Unavailable Unavailable MtanosBrian MD Unavailable Unavailable MtanosBrian MD Unavailable Unavailable MtanosBrian MD Unavailable Unavailable MtanosBrian MD Unavailable Unavailable MtanosBrian MD Unavailable Unavailable MtanosBrian MD Unavailable Unavailable MtanosBrian MD Unavailable Unavailable MtanosBrian MD Unavailable Unavailable MtanosBrian MD Unavailable Unavailable Mtanos, Brian VIERA Unavailable Unavailable MtanosBrian MD Unavailable Unavailable MtanosBrian MD Unavailable Unavailable MtanosBrian MD Unavailable Unavailable MtanosBrian MD Unavailable Unavailable MtanosBrian MD Unavailable Unavailable MtanosBrian MD Unavailable Unavailable MtanosBrian MD Unavailable Unavailable MtanosBrian MD Unavailable Unavailable MtanosBrian MD Unavailable Unavailable MtanosBrian MD Unavailable Unavailable MtanosBrian MD Unavailable Unavailable MtanosBrian MD Unavailable Unavailable MtanosBrian MD Unavailable Unavailable MtanosBrian MD Unavailable Unavailable MtanosBrian MD Unavailable Unavailable MtanosBrian MD Unavailable Unavailable MtanosBrian MD Unavailable Unavailable MtanosBrian MD Unavailable Unavailable MtanosBrian MD Unavailable Unavailable MtanosBrian MD Unavailable Unavailable MtanosBrian MD Unavailable Unavailable MtanosBrian MD Unavailable Unavailable MtanosBrian MD Unavailable Unavailable MtanosBrian MD Unavailable Unavailable MtanosBrian MD Unavailable Unavailable MtanosBrian MD Unavailable Unavailable MtanoBrian abreu MD Unavailable Unavailable MtanosBrian MD Unavailable Unavailable MtanosBrian MD Unavailable Unavailable MtanosBrian MD Unavailable Unavailable MtanosBrian MD Unavailable Unavailable MtanosBrian MD Unavailable Unavailable MtanosBrian MD Unavailable Unavailable MtanosBrian MD Unavailable Unavailable MtanosBrian MD Unavailable Unavailable MtanosBrian MD Unavailable Unavailable MtanosBrian MD Unavailable Unavailable MtanosBrian MD Unavailable Unavailable MtanosBrian MD Unavailable Unavailable MtanosBrian MD Unavailable Unavailable MtanosBrian MD Unavailable Unavailable MtanosBrian MD Unavailable Unavailable MtanosBrian MD Unavailable Unavailable MtanosBrian MD Unavailable Unavailable MtanosBrian MD Unavailable Unavailable MtanosBrian MD Unavailable Unavailable MtanosBrian MD Unavailable Unavailable MtanosBrian MD Unavailable Unavailable MtanosBrian MD Unavailable Unavailable Mtanos Brian MD Unavailable Unavailable MtanoBrian abreu MD Unavailable Unavailable MtanoBrian abreu MD Unavailable Unavailable MtanoBrian abreu MD Unavailable Unavailable MtanoBrian abreu MD Unavailable Unavailable MtanosBrian MD Unavailable Unavailable MtanoBrian abreu MD Unavailable Unavailable MtanoBrian abreu MD Unavailable Unavailable MtanoBrian abreu MD Unavailable Unavailable MtanoBrian abreu MD Unavailable Unavailable MtanoBrian abreu MD Unavailable Unavailable MtanoBrian abreu MD Unavailable Unavailable MtanoBrian abreu MD Unavailable Unavailable MtanoBrian abreu MD Unavailable Unavailable MtanoBrian abreu MD Unavailable Unavailable MtanoBrian abreu MD Unavailable Unavailable MtanoBrian abreu MD Unavailable Unavailable MtanoBrian abreu MD Unavailable Unavailable MtanoBrian abreu MD Unavailable Unavailable MtanoBrian abreu MD Unavailable Unavailable MtanoBrian abreu MD Unavailable Unavailable MtanoBrian abreu MD Unavailable Unavailable MtanoBrian abreu MD Unavailable Unavailable MtanoBrian abreu MD Unavailable Unavailable MtanoBrian abreu MD Unavailable Unavailable MtanoBrian abreu MD Unavailable Unavailable MtanoBrian abreu MD Unavailable Unavailable MtanoBrian abreu MD Unavailable Unavailable SLAVICH, J DAVID PA Unavailable Unavailable SLAVICH, J DAVID PA Unavailable Unavailable SLAVICH, J DAVID PA Unavailable Unavailable SLAVICH, J DAVID PA Unavailable Unavailable SLAVICH, J DAVID PA Unavailable Unavailable SLAVICH, J DAVID PA Unavailable Unavailable SLAVICH, J DAVID PA Unavailable Unavailable SLAVICH, J DAVID PA Unavailable Unavailable SLAVICH, J DAVID PA Unavailable Unavailable SLAVICH, J DAVID PA Unavailable Unavailable SLAVICH, J DAVID PA Unavailable Unavailable SLAVICH, J DAVID PA Unavailable Unavailable SLAVICH, J DAVID PA Unavailable Unavailable SLAVICH, J DAVID PA Unavailable Unavailable SLAVICH, J DAVID PA Unavailable Unavailable SLAVICH, J DAVID PA Unavailable Unavailable SLAALBINOH, J DAVID PA Unavailable Unavailable SLAVICH, J DAVID PA Unavailable Unavailable SLAVICH, J DAVID PA Unavailable Unavailable SLAVICH, J DAVID PA Unavailable Unavailable SLAVICH, J DAVID PA Unavailable Unavailable SLAVICH, J DAVID PA Unavailable Unavailable SLAVICH, J DAVID PA Unavailable Unavailable SLAVICH, J DAVID PA Unavailable Unavailable SLAVICH, J DAVID PA Unavailable Unavailable SLAVICH, J DAVID PA Unavailable Unavailable SLAVICH, J DAVID PA Unavailable Unavailable SLAVICH, J DAVID PA Unavailable Unavailable SLAVICH, J DAVID PA Unavailable Unavailable SLAVICH, J DAVID PA Unavailable Unavailable SLAVICH, J DAVID PA Unavailable Unavailable SLAVICH, J DAVID PA Unavailable Unavailable SLAVICH, J DAVID PA Unavailable Unavailable SLAVICH, J DAVID PA Unavailable Unavailable SLAVICH, J DAVID PA Unavailable Unavailable SLAVICH, J DAVID PA Unavailable Unavailable SLAVICH, J DAVID PA Unavailable Unavailable SLAVICH, J DAVID PA Unavailable Unavailable SLAVICH, J DAVID PA Unavailable Unavailable SLAVICH, J DAVID PA Unavailable Unavailable SLAVICH, J DAVID PA Unavailable Unavailable SLAVICH, J DAVID PA Unavailable Unavailable SLAVICH, J DAVID PA Unavailable Unavailable SLAVICH, J DAVID PA Unavailable Unavailable SLAVICH, J DAVID PA Unavailable Unavailable SLAVICH, J DAVID PA Unavailable Unavailable SLAVICH, J DAVID PA Unavailable Unavailable SLAVICH, J DAVID PA Unavailable Unavailable SLAVICH, J DAVID PA Unavailable Unavailable SLAVICH, J DAVID PA Unavailable Unavailable SLAVICH, J DAVID PA Unavailable Unavailable SLOANEMONTSE MD Unavailable Unavailable SLOANE, MONTSE VIERA Unavailable Unavailable SLOANE, MONTSE VIERA Unavailable Unavailable SLOANE, MONTSE VIERA Unavailable Unavailable SLOANE, MONTSE VIERA Unavailable Unavailable SLOANE, MONTSE VIERA Unavailable Unavailable SLOANE, MONTSE VIERA Unavailable Unavailable SLOANE, MONTSE VIERA Unavailable Unavailable SLOANE, MONTSE VIERA Unavailable Unavailable SLOANE, MONTSE VIERA Unavailable Unavailable SLOANE, MONTSE VIERA Unavailable Unavailable SLOANE, MONTSE VIERA Unavailable Unavailable SLOANE, MONTSE VIERA Unavailable Unavailable SLOANE, MONTSE VIERA Unavailable Unavailable SLOANE, MONTSE VIERA Unavailable Unavailable SLOANE, MONTSE VIERA Unavailable Unavailable SLOANE, MONTSE VIERA Unavailable Unavailable SLOANE, MONTSE VIERA Unavailable Unavailable SLOANE, MONTSE VIERA Unavailable Unavailable SLOANE, MONTSE VIERA Unavailable Unavailable SLOANE, MONTSE VIERA Unavailable Unavailable SLOANE, MONTSE VIERA Unavailable Unavailable SLOANE, MONTSE VIERA Unavailable Unavailable SLOANE, MONTSE VIERA Unavailable Unavailable SLOANE, MONTSE VIERA Unavailable Unavailable SLOANE, MONTSE VIERA Unavailable Unavailable SLOANE, MONTSE VIERA Unavailable Unavailable SLOANE, MNOTSE VIERA Unavailable Unavailable SLOANE, MONTSE VIERA Unavailable Unavailable SLOANE, MONTSE VIERA Unavailable Unavailable SLOANE, MONTSE VIERA Unavailable Unavailable SLOANE, MONTSE VIERA Unavailable Unavailable SLOANE, MONTSE VIERA Unavailable Unavailable SLOANE, MONTSE VIERA Unavailable Unavailable SLOANE, MONTSE VIERA Unavailable Unavailable SLOANE, MONTSE VIERA Unavailable Unavailable SLOANE, MONTSE VIERA Unavailable Unavailable SLOANE, MONTSE VIERA Unavailable Unavailable SLOANEMONTSE MD Unavailable Unavailable MONTSE ANTON MD Unavailable Unavailable MONTSE ANTON MD Unavailable Unavailable MONTSE ANTON MD Unavailable Unavailable MONTSE ANTON MD Unavailable Unavailable MONTSE ANTON MD Unavailable Unavailable SLOANEMONTSE MD Unavailable Unavailable SLOANEMONTSE MD Unavailable Unavailable MONTSE ANTON MD Unavailable Unavailable SLOANEMONTSE MD Unavailable Unavailable MONTSE ANTON MD Unavailable Unavailable SLOANEMONTSE MD Unavailable Unavailable SLOANEMONTSE MD Unavailable Unavailable SLOANEMONTSE MD Unavailable Unavailable SLOANEMONTSE MD Unavailable Unavailable SLOANE, MONTSE MD Unavailable Unavailable LePine, M Mari PRE K TEACHER Unavailable Unavailable LePine, M Mari PRE K TEACHER Unavailable Unavailable LePine, M Mari PRE K TEACHER Unavailable Unavailable LePine, M Mari PRE K TEACHER Unavailable Unavailable LePine, M Mari PRE K TEACHER Unavailable Unavailable LePine, M Mari PRE K TEACHER Unavailable Unavailable LePine, M Mari PRE K TEACHER Unavailable Unavailable LePine, M Mari PRE K TEACHER Unavailable Unavailable LePine, M Mari PRE K TEACHER Unavailable Unavailable LePine, M Mari PRE K TEACHER Unavailable Unavailable LePine, M Mari PRE K TEACHER Unavailable Unavailable LePine, M Mari PRE K TEACHER Unavailable Unavailable LePine, M Mari PRE K TEACHER Unavailable Unavailable LePine, M Mari PRE K TEACHER Unavailable Unavailable LePine, M Mari PRE K TEACHER Unavailable Unavailable LePine, M Mari PRE K TEACHER Unavailable Unavailable LePine, M Mari PRE K TEACHER Unavailable Unavailable LePine, M Mari PRE K TEACHER Unavailable Unavailable LePine, M Mari PRE K TEACHER Unavailable Unavailable LePine, M Mari PRE K TEACHER Unavailable Unavailable LePine, M Mari PRE K TEACHER Unavailable Unavailable LePine, M Mari PRE K TEACHER Unavailable Unavailable LePine, M Mari PRE K TEACHER Unavailable Unavailable LePine, M Mari PRE K TEACHER Unavailable Unavailable LePine, M Mari PRE K TEACHER Unavailable Unavailable LePine, M Mari PRE K TEACHER Unavailable Unavailable LePine, M Mari PRE K TEACHER Unavailable Unavailable LePine, M Mari PRE K TEACHER Unavailable Unavailable LePine, M Mari PRE K TEACHER Unavailable Unavailable LePine, M Mari PRE K TEACHER Unavailable Unavailable LePine, M Mari PRE K TEACHER Unavailable Unavailable LePine, M Mari PRE K TEACHER Unavailable Unavailable LePine, M Mari PRE K TEACHER Unavailable Unavailable LePine, M Mari PRE K TEACHER Unavailable Unavailable LePine, M Mari PRE K TEACHER Unavailable Unavailable LePine, M Mari PRE K TEACHER Unavailable Unavailable LePine, M Mari PRE K TEACHER Unavailable Unavailable LePine, M Mari PRE K TEACHER Unavailable Unavailable LePine, M Mari PRE K TEACHER Unavailable Unavailable LePine, M Mari PRE K TEACHER Unavailable Unavailable LePine, M Mari PRE K TEACHER Unavailable Unavailable LePine, M Mari PRE K TEACHER Unavailable Unavailable LePine, M Mari PRE K TEACHER Unavailable Unavailable LePine, M Mari PRE K TEACHER Unavailable Unavailable LePine, M Mari PRE K TEACHER Unavailable Unavailable LePine, M Mari PRE K TEACHER Unavailable Unavailable LePine, M Mari PRE K TEACHER Unavailable Unavailable LePine, M Mari PRE K TEACHER Unavailable Unavailable LePine, M Mari PRE K TEACHER Unavailable Unavailable LePine, M Mari PRE K TEACHER Unavailable Unavailable LePine, M Mari PRE K TEACHER Unavailable Unavailable LePine, M Mari PRE K TEACHER Unavailable Unavailable LePine, M Mari PRE K TEACHER Unavailable Unavailable LePine, M Mari PRE K TEACHER Unavailable Unavailable LePine, M Mari PRE K TEACHER Unavailable Unavailable Overholt, T Aryan PA Unavailable Unavailable Overholt, T Aryan PA Unavailable Unavailable Overholt, T Aryan PA Unavailable Unavailable Overholt, T Aryan PA Unavailable Unavailable Overholt, T Aryan PA Unavailable Unavailable Overholt, T Aryan PA Unavailable Unavailable Overholt, T Aryan PA Unavailable Unavailable Overholt, T Aryan PA Unavailable Unavailable Overholt, T Aryan PA Unavailable Unavailable Overholt, T Aryan PA Unavailable Unavailable Overholt, T Aryan PA Unavailable Unavailable Overholt, T Aryan PA Unavailable Unavailable Overholt, T Aryan PA Unavailable Unavailable Overholt, T Aryan PA Unavailable Unavailable Overholt, T Aryan PA Unavailable Unavailable Олег Gamboa MD Unavailable Unavailable Олег Gamboa MD Unavailable Unavailable Олег Gamboa MD Unavailable Unavailable Олег Gamboa MD Unavailable Unavailable Олег Gamboa MD Unavailable Unavailable Олег Gamboa MD Unavailable Unavailable Олег Gamboa MD Unavailable Unavailable Олег Gamboa MD Unavailable Unavailable Олег Gamboa MD Unavailable Unavailable Олег Gamboa MD Unavailable Unavailable Олег Gamboa MD Unavailable Unavailable Олег Gamboa MD Unavailable Unavailable Олег Gamboa MD Unavailable Unavailable Олег Gamboa MD Unavailable Unavailable Олег Gamboa MD Unavailable Unavailable Олег Gamboa MD Unavailable Unavailable Олег Gamboa MD Unavailable Unavailable Олег Gamboa MD Unavailable Unavailable Олег Gamboa MD Unavailable Unavailable Олег Gamboa MD Unavailable Unavailable Олег Gamboa MD Unavailable Unavailable Олег Gamboa MD Unavailable Unavailable Олег Gamboa MD Unavailable Unavailable Олег Gamboa MD Unavailable Unavailable Олег Gamboa MD Unavailable Unavailable Олег Gamboa MD Unavailable Unavailable Олег Gamboa MD Unavailable Unavailable Олег Gamboa MD Unavailable Unavailable LePine, M Mari PRE K TEACHER Unavailable Unavailable LePine, M Mari PRE K TEACHER Unavailable Unavailable LePine, M Mari PRE K TEACHER Unavailable Unavailable LePine, M Mari PRE K TEACHER Unavailable Unavailable LePine, M Mari PRE K TEACHER Unavailable Unavailable LePine, M Mari PRE K TEACHER Unavailable Unavailable LePine, M Mari PRE K TEACHER Unavailable Unavailable LePine, M Mari PRE K TEACHER Unavailable Unavailable LePine, M Mari PRE K TEACHER Unavailable Unavailable LePine, M Mari PRE K TEACHER Unavailable Unavailable LePine, M Mari PRE K TEACHER Unavailable Unavailable LePine, M Mari PRE K TEACHER Unavailable Unavailable LePine, M Mari PRE K TEACHER Unavailable Unavailable LePine, M Mari PRE K TEACHER Unavailable Unavailable LePine, M Mari PRE K TEACHER Unavailable Unavailable LePine, M Mari PRE K TEACHER Unavailable Unavailable LePine, M Mari PRE K TEACHER Unavailable Unavailable LePine, M Mari PRE K TEACHER Unavailable Unavailable LePine, M Mari PRE K TEACHER Unavailable Unavailable LePine, M Mari PRE K TEACHER Unavailable Unavailable LePine, M Mari PRE K TEACHER Unavailable Unavailable LePine, M Mari PRE K TEACHER Unavailable Unavailable LePine, M Mari PRE K TEACHER Unavailable Unavailable LePine, M Mari PRE K TEACHER Unavailable Unavailable LePine, M Mari PRE K TEACHER Unavailable Unavailable LePine, M Mari PRE K TEACHER Unavailable Unavailable LePine, M Mari PRE K TEACHER Unavailable Unavailable LePine, M Mari PRE K TEACHER Unavailable Unavailable LePine, M Mari PRE K TEACHER Unavailable Unavailable LePine, M Mari PRE K TEACHER Unavailable Unavailable LePine, M Mari PRE K TEACHER Unavailable Unavailable LePine, M Mari PRE K TEACHER Unavailable Unavailable LePine, M Mari PRE K TEACHER Unavailable Unavailable LePine, M Mari PRE K TEACHER Unavailable Unavailable LePine, M Mari PRE K TEACHER Unavailable Unavailable LePine, M Mari PRE K TEACHER Unavailable Unavailable LePine, M Mari PRE K TEACHER Unavailable Unavailable LePine, M Mari PRE K TEACHER Unavailable Unavailable LePine, M Mari PRE K TEACHER Unavailable Unavailable LePine, M Mari PRE K TEACHER Unavailable Unavailable LePine, M Mari PRE K TEACHER Unavailable Unavailable LePine, M Mari PRE K TEACHER Unavailable Unavailable LePine, M Mari PRE K TEACHER Unavailable Unavailable LePine, M Mari PRE K TEACHER Unavailable Unavailable LePine, M Mari PRE K TEACHER Unavailable Unavailable LePine, M Mari PRE K TEACHER Unavailable Unavailable LePine, M Mari PRE K TEACHER Unavailable Unavailable LePine, M Mari PRE K TEACHER Unavailable Unavailable LePine, M Mari PRE K TEACHER Unavailable Unavailable LePine, M Mari PRE K TEACHER Unavailable Unavailable LePine, M Mari PRE K TEACHER Unavailable Unavailable LePine, M Mari PRE K TEACHER Unavailable Unavailable LePine, M Mari PRE K TEACHER Unavailable Unavailable LePine, M Mari PRE K TEACHER Unavailable Unavailable LePine, M Mari PRE K TEACHER Unavailable Unavailable Tibbits, Celina Trudy CENTERLESS GRINDER SET UP OPERATOR Unavailable Unavailable Tibbits, Celina Trudy CENTERLESS GRINDER SET UP OPERATOR Unavailable Unavailable Tibbits, Celina Trudy CENTERLESS GRINDER SET UP OPERATOR Unavailable Unavailable Tibbits, Celina Trudy CENTERLESS GRINDER SET UP OPERATOR Unavailable Unavailable Tibbits, Celina Trudy CENTERLESS GRINDER SET UP OPERATOR Unavailable Unavailable Tibbits, Celina Trudy CENTERLESS GRINDER SET UP OPERATOR Unavailable Unavailable Tibbits, Celina Trudy CENTERLESS GRINDER SET UP OPERATOR Unavailable Unavailable Tibbits, Celina Trudy CENTERLESS GRINDER SET UP OPERATOR Unavailable Unavailable Tibbits, Celina Trudy CENTERLESS GRINDER SET UP OPERATOR Unavailable Unavailable Tibbits, Celina Trudy CENTERLESS GRINDER SET UP OPERATOR Unavailable Unavailable Tibbits, Celina Trudy CENTERLESS GRINDER SET UP OPERATOR Unavailable Unavailable Tibbits, Celina Trudy CENTERLESS GRINDER SET UP OPERATOR Unavailable Unavailable Tibbits, Celina Trudy CENTERLESS GRINDER SET UP OPERATOR Unavailable Unavailable Tibbits, Celina Trudy CENTERLESS GRINDER SET UP OPERATOR Unavailable Unavailable Tibbits, Celina Trudy CENTERLESS GRINDER SET UP OPERATOR Unavailable Unavailable Tibbits, Celina Trudy CENTERLESS GRINDER SET UP OPERATOR Unavailable Unavailable Tibbits, Celina Trudy CENTERLESS GRINDER SET UP OPERATOR Unavailable Unavailable Tibbits, Celina Trudy CENTERLESS GRINDER SET UP OPERATOR Unavailable Unavailable Tibbits, Celina Trudy CENTERLESS GRINDER SET UP OPERATOR Unavailable Unavailable Tibbits, Celina Trudy CENTERLESS GRINDER SET UP OPERATOR Unavailable Unavailable Tibbits, Celina Trudy CENTERLESS GRINDER SET UP OPERATOR Unavailable Unavailable Tibbits, Celina Trudy CENTERLESS GRINDER SET UP OPERATOR Unavailable Unavailable Tibbits, Celina Trudy CENTERLESS GRINDER SET UP OPERATOR Unavailable Unavailable Tibbits, Celina Trudy CENTERLESS GRINDER SET UP OPERATOR Unavailable Unavailable Tibbits, Celina Trudy CENTERLESS GRINDER SET UP OPERATOR Unavailable Unavailable Tibbits, Celina Trudy CENTERLESS GRINDER SET UP OPERATOR Unavailable Unavailable Tibbits, Celina Trudy CENTERLESS GRINDER SET UP OPERATOR Unavailable Unavailable Tibbits, Celina Trudy CENTERLESS GRINDER SET UP OPERATOR Unavailable Unavailable Tibbits, Celina Trudy CENTERLESS GRINDER SET UP OPERATOR Unavailable Unavailable Tibbits, Celina Trudy CENTERLESS GRINDER SET UP OPERATOR Unavailable Unavailable Tibbits, Celina Trudy CENTERLESS GRINDER SET UP OPERATOR Unavailable Unavailable Tibbits, Celina Trudy CENTERLESS GRINDER SET UP OPERATOR Unavailable Unavailable Tibbits, Celina Trudy CENTERLESS GRINDER SET UP OPERATOR Unavailable Unavailable Tibbits, Celina Trudy CENTERLESS GRINDER SET UP OPERATOR Unavailable Unavailable Alexia, L Destini PRE K TEACHER Unavailable Unavailable Hopelawn, L Destini PRE K TEACHER Unavailable Unavailable Alexia, L Destini PRE K TEACHER Unavailable Unavailable Alexia, L Destini PRE K TEACHER Unavailable Unavailable Hopelawn, L Destini PRE K TEACHER Unavailable Unavailable Alexia, L Destini PRE K TEACHER Unavailable Unavailable Hopelawn, L Destini PRE K TEACHER Unavailable Unavailable Hopelawn, L Destini PRE K TEACHER Unavailable Unavailable Alexia, L Destini PRE K TEACHER Unavailable Unavailable Hopelawn, L Destini PRE K TEACHER Unavailable Unavailable Alexia, L Destini PRE K TEACHER Unavailable Unavailable Alexia, L Destini PRE K TEACHER Unavailable Unavailable Alexia, L Destini PRE K TEACHER Unavailable Unavailable Alexia, L Destini PRE K TEACHER Unavailable Unavailable Alexia, L Destini PRE K TEACHER Unavailable Unavailable Alexia, L Destini PRE K TEACHER Unavailable Unavailable Hopelawn, L Destini PRE K TEACHER Unavailable Unavailable Alexia, L Destini PRE K TEACHER Unavailable Unavailable Hopelawn, L Destini PRE K TEACHER Unavailable Unavailable Alexia, L Destini PRE K TEACHER Unavailable Unavailable Hopelawn, L Destini PRE K TEACHER Unavailable Unavailable Alexia, L Destini PRE K TEACHER Unavailable Unavailable Alexia, L Destini PRE K TEACHER Unavailable Unavailable Hopelawn, L Destini PRE K TEACHER Unavailable Unavailable Hopelawn, L Destini PRE K TEACHER Unavailable Unavailable Alexia, L Destini PRE K TEACHER Unavailable Unavailable Alexia, L Destini PRE K TEACHER Unavailable Unavailable Hopelawn, L Destini PRE K TEACHER Unavailable Unavailable Hopelawn, L Destini PRE K TEACHER Unavailable Unavailable Alexia, L Destini PRE K TEACHER Unavailable Unavailable Hopelawn, L Destini PRE K TEACHER Unavailable Unavailable [place]elawn, L Destini PRE K TEACHER Unavailable Unavailable Alexia, L Destini PRE K TEACHER Unavailable Unavailable Alexia, L Destini PRE K TEACHER Unavailable Unavailable Re-disclosure Warning The records that you are about to access may contain information from federally-assisted alcohol or drug abuse programs. If such information is present, then the following federally mandated warning applies: This information has been disclosed to you from records protected by federal confidentiality rules (42 CFR part 2). The federal rules prohibit you from making any further disclosure of this information unless further disclosure is expressly permitted by the written consent of the person to whom it pertains or as otherwise permitted by 42 CFR part 2. A general authorization for the release of medical or other information is NOT sufficient for this purpose. The Federal rules restrict any use of the information to criminally investigate or prosecute any alcohol or drug abuse patient.The records that you are about to access may contain highly sensitive health information, the redisclosure of which is protected by Article 27-F of the [facility] Public Health law. If you continue you may have access to information: Regarding HIV / AIDS; Provided by facilities licensed or operated by the [facility] Office of Mental Health; or Provided by the [facility] Office for People With Developmental Disabilities. If such information is present, then the following [facility] mandated warning applies: This information has been disclosed to you from confidential records which are protected by state law. State law prohibits you from making any further disclosure of this information without the specific written consent of the person to whom it pertains, or as otherwise permitted by law. Any unauthorized further disclosure in violation of state law may result in a fine or custodial sentence or both. A general authorization for the release of medical or other information is NOT sufficient authorization for further disc losure. Family History Family Member Name Family Member Gender Family Member Status Date o f Status Description Data Source(s) Unknown Male Problem (finding) 03/26/2018 12:00:00 AM EST [facility] ([facility]) Unknown Unknown Problem [facility] ([facility] ) Unknown Male Problem [facility] ([facility] [employer] [facility] [place]) Encounters Encounter Providers Location Date Indications Data Source(s ) OutpatientOFFICE/OUTPATIENT VISIT, EST Attender: Trudy jolly [facility] 03/30/2020 12:20:00 PM EST - 03/30/2020 12:20:00 PM ES T Erythema nodosumOther residential (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Sicca syndrome, unspecified [facility] ([facility]) Erythema nodosum Other residential (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 Sicca syndrome, unspecified Attender: Sedrick Salazar [facility] 03/20/2020 11:30:00 AM EST - 03/20/2020 11:30:00 AM EST [facility] ([facility]) Attender: Trudy Downing [facility] 03/19/2020 09:13:00 AM EST - 03/19/2020 09:13:00 AM EST [facility] ( [facility]) Attender: Sedrick Salazar MD [facility] 03/19/2020 09:11:00 AM EST - 03/19/2020 09:11:00 AM EST [facility] ([facility]) Outpatient Attender: Mari Nassar 03/01 09:00:00 AM EST [facility] ([facility] ) Attender: Trudy Downing [facility] 12/28/2019 09:45:00 AM EDT - 12/28/2019 09:45:00 AM EDT [facility] ( [facility]) Outpatient Attender: MONTSE ANTON MD [email or web address] 12/16/2019 12:00:00 AM EDT [facility] OutpatientOFFICE/OUTPATIENT VISIT, EST Attender: DAVID HOLT [facility] 09/23/2019 10:20:00 AM EDT - 09/23/2019 10:20:00 AM ED T Erythema nodosumOther residential (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Sicca syndrome, unspecified [facility] ([facility]) Erythema nodosum 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 (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 Sicca syndrome, unspecified Outpatient Attender: Mari Nassar 09/19 11:20:00 AM EDT [facility] ([facility] ) Outpatient Attender: DINESH HARTMAN MD Main Office 08/30/2019 10:00:00 AM EDT [facility] ([facility] Outpatient Attender: Олге Solis/Bee/Juma/Reind l 07/22/2019 09:00:00 AM EDT [facility] ([facility] Outpatient Attender: Олег Solis/Bee/Juma/Nubiad l 07/06/2019 10:00:00 AM EDT [facility] ([facility]) Outpatient Attender: SYDNI NicoleC [facility] 05/20/2019 07:30:00 AM EST [facility] ([facility]) Outpatient Attender: Mari Nassar 05/18 08:20:00 AM EST [facility] ([facility] ) [facility] [address] [place] [id number] 05/16/2019 12:00:00 AM EST eCW1 ([facility]) Attender: Brian Santos [facility] 05/03/2019 11:42:00 AM EST - 05/03/2019 11:42:00 AM EST [facility] ( [facility]) Outpatient Referrer: Mari OLMOS 04/18/2019 01:13:00 PM EST [facility] Outpatient Referrer: Mari OLMOS 04/06/2019 10:45:00 AM EST [facility] Outpatient Referrer: Mari OLMOS 04/06/2019 10:42:00 AM EST [facility] OFFICE OUTPATIENT NEW 30 MINUTES Attender: Aryan HOLT Ph ysical Therapy 04/06/2019 09:00:00 AM EST [facility] ([facility]) Outpatient Attender: Destini OLMOS Main Office 04/01/2019 07:30:0 0 AM EST [facility] ([facility]) OutpatientOFFICE/OUTPATIENT VISIT, EST Attender: Brian tello MD [facility] 03/25/2019 10:40:00 AM EST - 03/25/2019 10:40:00 AM ES T Other residential drug therapyErythema nodosumSicca syndrome, unspecified [facility] ([facility]) Other residential drug therapy Erythema nodosum Sicca syndrome, unspecified Outpatient Attender: Mari Nassar 02/15 09:40:00 AM EST [facility] ([facility] ) Immunizations Vaccine Date Status Description Data Source(s) INFLUENZA VIRUS VACCINE QUADRIVALENT 2019- (6 MOS AN D UP) 01/12/2020 12:00:00 AM EDT completed [facility] Influenza, injectable, MDCK, preservative free, emma valent 12/28/2019 12:00:00 AM EDT completed Flucelvax [facility] ([facility]) Note: per pt ; Source: Other Provider Medications Medication Brand Name Start Date Product Form Dose Route Admi nistrative Instructions Pharmacy Instructions Status Indications Reaction Description Data Source(s) Prednisone 20 MG Oral Tablet Prednisone 04/04/2020 12:00:00 AM EST ORAL active [facility] ([facility], ) 20 mg 04/04/2020 12:00:00 AM EST tablet 7 TAKE ONE TABLET BY MOUTH EVERY DAY TAKE ONE TABLET BY MOUTH EVERY DAY SOLD: 04/04/2020 [facility] Hydroxychloroquine Sulfate 200 MG Oral T ablet [Plaquenil] Plaquenil 200 mg tablet Plaquenil 200 mg tablet 03/30/2020 12:00:00 AM EST active hydroxychloroquine sulfate 200 MG Oral Tablet [Plaquenil] [facility] ([facility]) Hydroxychloroquine Sulfate 200 MG Oral T ablet [Plaquenil] Plaquenil 200 mg tablet Plaquenil 200 mg tablet 03/20/2020 12:00:00 AM EST completed hydroxychloroquine sulfate 200 MG Oral Tablet [Plaquen il] [facility] ([facility]) Estrogens, Conjugated (CORRECTION) 0.625 MG/ML Vaginal Cream [Nora rin] Premarin 03/01/2020 12:00:00 AM EST active [facility] ([facility]) Hydroxychloroquine Sulfate 200 MG Oral T ablet [Plaquenil] Plaquenil 200 mg tablet Plaquenil 200 mg tablet 12/28/2019 12:00:00 AM EDT completed hydroxychloroquine sulfate 200 MG Oral Tablet [Plaquen il] [facility] ([facility]) Hydroxychloroquine Sulfate 200 MG Oral T ablet [Plaquenil] Plaquenil 200 mg tablet Plaquenil 200 mg tablet 05/03/2019 12:00:00 AM EST active Hydroxychloroquine Sulfate 200 MG Oral Tablet [Plaquenil] [facility] ([facility]) 15 mg 04/06/2019 12:00:00 AM EST tablet 30 TAKE ONE TABLET BY MOUTH EVERY DAY WITH FOOD OR MILK TAKE ONE TABLET BY MOUTH EVERY DAY WITH FOOD OR MILK S OLD: 04/06/2019 [facility] meloxicam 15 MG Oral Tablet Meloxicam 04/06/2019 12:00:00 AM EST ORAL active [facility] ([facility] ) 90 mcg/actuation 04/01/2019 12:00:00 AM EST HFA aerosol inha ler 8 INHALE TWO PUFFS BY MOUTH EVERY 4 TO 6 HOURS NEEDED INHALE TWO PUFFS BY MOUTH EVERY 4 TO 6 HOURS NEEDED SOLD: 04/04/2019 [facility] 60 ACTUAT Albuterol 0.09 MG/ACTUAT Metered Dose Inhaler Albu terol Sulfate HFA 03/31/2019 12:00:00 AM EST ORAL active [facility] ([facility] Azithromycin 250 MG Oral Tablet Azithromycin 02/15/2019 12:00:00 AM EST completed [facility] ([facility]) 90 mcg/actuation 02/08/2019 12:00:00 AM EST HFA aerosol inha ler 18 INHALE 2 PUFFS BY MOUTH EVERY 4 TO 6 HOURS NEEDED INHALE 2 PUFFS BY MOUTH EVERY 4 TO 6 HOURS NEEDED SOLD: 02/11/2019 [facility] Hydroxychloroquine Sulfate 200 MG Oral T ablet [Plaquenil] Plaquenil 200 mg tablet Plaquenil 200 mg tablet 11/01/2018 12:00:00 AM EDT completed Hydroxychloroquine Sulfate 200 MG Oral Tablet [Plaquen il] [facility] ([facility]) hydrocortisone valerate 2 MG/ML Topical Cream hydrocortisone valerate 0.2 % topical cream hydrocortisone valerate 0.2 % topical cream 09/23/2018 12:00:00 AM EDT completed apply by topical route 2 times every day to the affected area(s) as needed [facility] ([facility]) Citalopram 20 MG Oral Tablet citalopram 20 mg tablet citalopram 20 mg tablet 1.00 {tbl} ORAL completed take 1 tabl et by oral route every day [facility] ([facility]) CRANBERRY (unknown strength) cranberry ORAL completed take 2 Tablet by Oral route once [facility] ([facility]) zinc 50 mg tablet zinc 1 {tbl} ORAL completed take 1 tablet by oral route every day [facility] ([facility]) ESTROVEN (unknown strength) soy isofla/blk cohosh/mag bark completed [facility] ([facility]) 30 ACTUAT fluticasone furoate 0.2 MG/ACT UAT / vilanterol 0.025 MG/ACTUAT Dry Powder Inhaler [Breo] Breo Ellipta 200 mcg-25 mcg/dose powder for inhalation Breo Ellipta 200 mcg-25 mcg/dose powder for inhalation 1.00 {puff} RESPIRATORY (INHALATION) completed 30 ACTUAT fluticasone furoate 0.2 MG/ACTUAT / vilanterol 0.025 MG/ACTUAT Dry Powder Inhaler [Breo] [facility] ([facility]) azelastine 0.15 % (205.5 mcg) nasal spray Azelastine h ydrochloride 0.206 MG/ACTUAT Metered Dose Nasal [place] 1.00 spray NASAL completed spray 1 spray by intranasal route 2 times every day in each nostril [facility] ([facility]) Calcium Carbonate 1500 MG Oral Tablet Ca lcium 600 600 mg calcium (1,500 mg) tablet Calcium 600 600 mg calcium (1,500 mg) tablet ORAL completed take 1 by Oral route 2 times every day [facility] ([facility]) Riboflavin 100 MG Oral Tablet Vitamin B-2 100 mg table t Vitamin B-2 100 mg tablet completed [facility] ( [facility]) Estradiol 0.01 MG Vaginal Tablet estradiol 10 mcg vagi nal tablet estradiol 10 mcg vaginal tablet 1.00 {tbl} VAGINAL completed insert 1 tablet by vaginal route 2 times every week [facility] ([facility]) Insurance Providers Payer name Policy type / Coverage type Policy ID Covered alliance party ID Covered alliance party's relationship to mi Policy Mi Plan Information [facility] [id number] SP [id number] R O [id number] S [id number] [facility] [id number] [place] [id number] [facility] [id number] SP [id number] [facility] [id number] Commercial Ins urance Co. [id number] UMR [id number] Commercial Insur ance Co. [id number] ANSI-Commercial [id number] ANSI-Commercial [id number] [employer]Umr (Old) Medigap Part B [id number] Self [id number] Umr (New [employer]) Commercial [id number] Self [id number] UMR [facility] [id number] SP [id number] [employer] Medigap Part B [id number] Self [id number] Umr Commercial [id number] Self [id number] [employer] Medigap Part B [id number] Self [id number] Umr Commercial [id number] Self [id number] UMR O [id number] S [id number] [employer] (Old) Medigap Part B [id number] Self [id number] [employer] Commercial [id number] Self [id number] Umr Commercial [id number] Self [id number] [employer] Medigap Part B [id number] Self [id number] UMR F [id number] SELF [id number] [employer] Commercial [id number] Self [id number] [employer] / UMR F [id number] SELF [id number] UMR U [id number] Self [id number] [employer] U [id number] Self [id number] [employer] [id number] SP [id number] P[employer] [id number] SP [id number] Umr/Uhc/[employer] Health Maintenance Organization (HMO) [id number] Self [id number] [employer] / UMR F [id number] SELF [id number] [employer] (HMO) [id number] Se lf [id number] [employer] Commercial [id number] Self [id number] [employer] (Old) Commercial [id number] Self [id number] [employer] (Old) Commercial [id number] Self [id number] Umr [employer] Ppo Commercial [id number] Self [id number] POMCO [id number] SP [id number] Umr [employer] Ppo Commercial [id number] Self [id number] POM[employer] [id number] SP [id number] [employer] Commercial [id number] Self [id number] [employer] (HMO) [id number] Se lf [id number] Umr [employer] Ppo Commercial [id number] Self [id number] [employer] PPO O [id number] S [id number] [employer] (HMO) [id number] Se lf [id number] [employer] Ppo Commercial [id number] Self [id number] [employer] F [id number] SELF [id number] POMCO [id number] SP [id number] [employer] F [id number] SELF [id number] [employer] Ppo Commercial [id number] Self [id number] [employer] Ppo Commercial [id number] Self [id number] [employer] Ppo Commercial 200 Self 200 [employer] Commercial Ppo Self Ppo [employer] (HMO) 200 Se lf 200 [employer] PPO 2 [id number] 1 [id number] MULTIPLAN 2 [id number] 1 [id number] SELF PAY 2 UNAVAILABLE 1 UNAVAILA BLE [id number] Problems, Conditions, and Diagnoses Code Display Name Description Problem Type Effective Dates Data Source(s) 467926917 Pure hypercholesterolemia Pure hypercholesterolemia Pr oblem 04/06/2019 12:00:00 AM EST [facility] ([facility] ) Surgeries/Procedures Procedure Description Date Indications Data Source(s) ASSAY OF SERUM ALBUMIN 03/30/2020 12:00: 00 AM EST - 03/30/2020 12:00:00 AM EST [facility] ([facility]) TRANSFERASE (AST) (SGOT) 03/30/2020 12:0 0:00 AM EST - 03/30/2020 12:00:00 AM EST [facility]) ALANINE AMINO (ALT) (SGPT) 03/30/2020 12 :00:00 AM EST - 03/30/2020 12:00:00 AM EST [facility]) ASSAY OF CREATININE 03/30/2020 12:00:00 AM EST - 03/30 12:00:00 AM EST [facility] ([facility]) C-REACTIVE PROTEIN 03/30/2020 12:00:00 AM EST - 2020 12:00:00 AM EST [facility] ([facility]) RBC SED RATE, AUTOMATED 03/30/2020 12:00 :00 AM EST - 03/30/2020 12:00:00 AM EST [facility] ([facility]) COMPLETE CBC W/AUTO DIFF WBC 03/30/2020 12:00:00 AM EST - 03/30/2020 12:00:00 AM EST [facility] ([facility]) ROUTINE VENIPUNCTURE 03/30/2020 12:00:00 AM EST - 03/30/2020 12:00:00 AM EST [facility] ([facility]) HCV Screening For Pt Born 1947 To 1967 0 03/30/2020 12:00:00 AM EST - 03/30/2020 12:00:00 AM EST [facility]) OFFICE/OUTPATIENT VISIT, EST 03/30/2020 12:00:00 AM EST - 03/30/2020 12:00:00 AM EST [facility] ([facility]) HCV Screening For Pt Born 1947 To 1967 0 09/23/2019 12:00:00 AM EDT - 09/23/2019 12:00:00 AM EDT [facility] ([facility]) OFFICE/OUTPATIENT VISIT, EST 09/23/2019 12:00:00 AM EDT - 09/23/2019 12:00:00 AM EDT [facility] ([facility]) RBC SED RATE, AUTOMATED 09/23/2019 12:00 :00 AM EDT - 09/23/2019 12:00:00 AM EDT [facility] ([facility]) C-REACTIVE PROTEIN 09/23/2019 12:00:00 AM EDT - 2019 12:00:00 AM EDT [facility] ([facility]) ASSAY OF CREATININE 09/23/2019 12:00:00 AM EDT - 09/22 12:00:00 AM EDT [facility] ([facility]) ASSAY OF SERUM ALBUMIN 09/23/2019 12:00: 00 AM EDT - 09/23/2019 12:00:00 AM EDT [facility] ([facility]) ALANINE AMINO (ALT) (SGPT) 09/23/2019 12 :00:00 AM EDT - 09/23/2019 12:00:00 AM EDT [facility] ([facility]) TRANSFERASE (AST) (SGOT) 09/23/2019 12:0 0:00 AM EDT - 09/23/2019 12:00:00 AM EDT [facility] ([facility]) COMPLETE CBC W/AUTO DIFF WBC 09/23/2019 12:00:00 AM EDT - 09/23/2019 12:00:00 AM EDT [facility] ([facility]) ROUTINE VENIPUNCTURE 09/23/2019 12:00:00 AM EDT - 09/23/2019 12:00:00 AM EDT [facility] ([facility]) BRNCDILAT RSPSE SPMTRY PRE&POST-BRNCDILAT ADMN 020 12:00:00 AM EDT [facility] ([facility]) ARTHROCENTESIS ASPIR&/INJECTION MAJOR JT/BURSA 12:00:00 AM EST [facility] ([facility]) Mammogram 04/18/2019 12:00:00 AM EST M EDENT ([facility]) X-Ray Femur Minimum 2 Views 04/06/2019 12:00:00 AM EST [facility] ([facility]) BRNCDILAT RSPSE SPMTRY PRE&POST-BRNCDILAT ADMN 020 12:00:00 AM EST [facility] ([facility]) HCV Screening For Pt Born 1947 To 1967 0 03/25/2019 12:00:00 AM EST - 03/25/2019 12:00:00 AM EST [facility] ([facility]) OFFICE/OUTPATIENT VISIT, EST 03/25/2019 12:00:00 AM EST - 03/25/2019 12:00:00 AM EST [facility] ([facility]) Results ID Date Data Source [id number] 03/30/2020 01:12:00 PM EST [facility] ([facility]) Name Value Range Interpretation Code Description Data Tere rce(s) Supporting Document(s) <0.2 0.0-0.5 CRP [facility] ID Date Data Source [id number] 03/30/2020 01:12:00 PM EST [facility] ([facility]) Name Value Range Interpretation Code Description Data Tere rce(s) Supporting Document(s) 1.0 mg/dL 0.6-1.2 CREATININE [facility] ([facility]) 56.4 mL/min/1.73m eGFR Non- A merican [facility] ([facility]) >60 eGFR [facility] ([facility]) ID Date Data Source [id number] 03/30/2020 01:12:00 PM EST [facility] ([facility]) Name Value Range Interpretation Code Description Data Tere rce(s) Supporting Document(s) 22 U/L 15-37 AST [facility] ID Date Data Source [id number] 03/30/2020 01:12:00 PM EST [facility] ([facility]) Name Value Range Interpretation Code Description Data Tere rce(s) Supporting Document(s) 46 U/L 30-65 ALT [facility] ID Date Data Source [id number] 03/30/2020 01:12:00 PM EST [facility] ([facility]) Name Value Range Interpretation Code Description Data Tere rce(s) Supporting Document(s) 4.4 g/dL 3.4-4.4 ALB [facility] ([facility]) ID Date Data Source [id number] 03/30/2020 01:12:00 PM EST [facility] ([facility]) Name Value Range Interpretation Code Description Data Tere rce(s) Supporting Document(s) 7 mm/Hr 0-20 ESR [facility]) ID Date Data Source [id number] 03/30/2020 01:12:00 PM EST [facility] ([facility]) Name Value Range Interpretation Code Description Data Tere rce(s) Supporting Document(s) 7.0 10*3/uL 3.7-10.1 WBC [facility] ([facility]) 4.64 10*6/uL 3.50-5.50 RBC [facility] ([facility]) 15.0 g/dL 12.0-16.0 HGB [facility]) 45.0 % 36.0-48.0 HCT [facility] ([facility]) 32.4 pg 26.0-34.0 MCH [facility] ([facility]) 96.9 fL 80.0-100.0 MCV [facility] ([facility]) 33.4 g/dL 31.0-37.0 MCHC [facility] ([facility]) 299 10*3/uL 150-500 PLATELETS [facility] ([facility]) 11.7 % 10.0-15.0 RDW [facility] ([facility]) 4.32 10*3/uL 2.10-8.00 YAW# [facility] ([facility]) 6.5 fL 6.0-10.0 MPV [facility]) 0.61 10*3/uL 0.10-1.00 MONO# [facility] ([facility]) 1.80 10*3/uL 1.00-5.00 LYM# [facility] ([facility]) 62.1 % 50.0-80.0 YAW% [facility]) 0.2 10*3/uL 0.0-0.5 EOS# [facility] ([facility]) 0.1 10*3/uL 0.0-0.2 BASO# [facility] ([facility]) 25.8 % 25.0-50.0 LYM% [facility] 8.7 % 2.0-10.0 MONO% [facility] ([facility]) 1.0 % 0.0-4.0 BASO% [facility] ([facility]) 2.4 % 0.0-5.0 EOS% [facility] ([facility]) ID Date Data Source [id number] 03/01/2020 10:49:00 AM EST [facility] ([facility]) Name Value Range Interpretation Code Description Data Tere rce(s) Supporting Document(s) Laboratory test finding (navigational concept) Laboratory test result [facility] ([facility]) ID Date Data Source [id number] 03/01/2020 10:49:00 AM EST [facility] ([facility]) Name Value Range Interpretation Code Description Data Tere rce(s) Supporting Document(s) Cytology report of Cervical or vaginal smear or scrapi ng Cyto stain.thin prep Laboratory test result [facility] ([facility]) HPV, low volume rfx Laboratory test result [facility] This nucleic acid amplification test det ects fourteen high-risk HPV types (16,18,31,33,35,39,45,51,52,56,58,59,66,68) without differentiation. ID Date Data Source [id number] 03/01/2020 10:49:00 AM EST [facility] Name Value Range Interpretation Code Description Data Tere rce(s) Supporting Document(s) Cytology report of Cervical or vaginal smear or scrapi ng Cyto stain.thin prep Laboratory test result [facility] ID Date Data Source [id number] 02/29/2020 09:18:00 AM EST [facility] ([facility] Name Value Range Interpretation Code Description Data Tere rce(s) Supporting Document(s) Cholesterol [Mass/volume] in Serum or Plasma 185 mg/dL 131-200 [facility] ([facility]) Triglyceride [Mass/volume] in Serum or Plasma 82 mg/dL 30-150 [facility] ([facility]) Cholesterol in HDL [Mass/volume] in Serum or Plasma 68 mg/dL 35-60 [facility] ([facility]) Cholesterol in LDL [Mass/volume] in Serum or Plasma by calcu lation 101 CALC 50-159 [facility] ([facility]) ID Date Data Source [id number] 02/29/2020 09:18:00 AM EST [facility] ([facility]) Name Value Range Interpretation Code Description Data Tere rce(s) Supporting Document(s) Glucose [Mass/volume] in Serum or Plasma 92 mg/dL 74-99 [facility] ([facility]) 100-125 mg/dL PRE-DIABETES/FASTING >126 mg/dL DIABETES/FASTING Sodium [Moles/volume] in Serum or Plasma 140 meq/L 136-145 [facility] ([facility]) Urea nitrogen [Mass/volume] in Serum or Plasma 17 mg/dL 7-18 [facility] ([facility]) Creatinine 0.7 mg/dL 0.6-1.3 [facility] Chloride [Moles/volume] in Serum or Plasma 102 meq/L 98-107 [facility] ([facility]) Potassium [Moles/volume] in Serum or Plasma 4.7 meq/L 3.5-5.1 [facility] ([facility]) Carbon dioxide, total [Moles/volume] in Serum or Plasma 29 meq/L 21 -32 [facility] ([facility]) Total Bilirubin 0.4 mg/dL 0.2-1.0 [facility] ([facility]) Calcium [Mass/volume] in Serum or Plasma 9.6 mg/dL 8.5-10.1 [facility] ([facility]) Alkaline phosphatase isoenzyme [Units/volume] in Serum or Pl asma 41 mg/dL 46-116 [facility] ([facility]) Aspartate aminotransferase [Enzymatic activity/volume] in Serum or Plasma 19 U/L 15-37 [facility] ([facility] ) Proteinase 3 Ab [Units/volume] in Serum 6.9 g/dL 6.4-8.2 [facility] ([facility]) Albumin [Mass/volume] in Serum or Plasma 4.4 g/dL 3.4-5.0 [facility] ([facility]) Alanine aminotransferase [Enzymatic activity/volume] in Seru m or Plasma 36 U/L 12-78 [facility] ([facility]) Glomerular filtration rate/1.73 sq M pre dicted among blacks [Volume Rate/Area] in Serum or Plasma by Creatinine-based formula (MDRD) Laboratory test result [facility] ([facility]) <content>CHRONIC KIDNEY DISEASE STAGING PER NKF</content>
<content></content>
<content>STAGE I & II GFR >= 60 NORMAL TO MILDLY DECREASED</content>
<content>STAGE III GFR 30-59 MODERATELY DECREASED</content>
<content>STAGE IV GFR 15-29 SEVERELY DECREASED</content>
<content>STAGE V GFR <15 VERY LITTLE GFR LEFT</content>
<content>ESRD GFR <15 ON HAZARDOUS MATERIAL TECHNICIAN</content>
<content></content> A/G Ratio 1.76 CALC 1.00-1.90 [facility] ([facility]) Glomerular filtration rate/1.73 sq M pre dicted among non-blacks [Volume Rate/Area] in Serum or Plasma by Creatinine-based formula (MDRD) Laboratory test result [facility] ([facility] ) ID Date Data Source [id number] 02/29/2020 09:18:00 AM EST [facility] ([facility]) Name Value Range Interpretation Code Description Data Tere rce(s) Supporting Document(s) Leukocytes [#/volume] in Blood by Automated count 5.9 x10*3/UL 4.1-10 .9 [facility]) Hematocrit [Volume Fraction] of Blood by Automated count 42.1 % 3 7.0-51.0 [facility] ([facility]) Erythrocytes [#/volume] in Blood by Automated count 4.62 x10*6/UL 4.2 0-6.30 [facility] ([facility]) Hemoglobin [Mass/volume] in Blood 14.9 g/dL 12.0-18.0 [facility] ([facility]) MCV 91.0 fL 80.0-97.0 [facility] MCH 32.2 pg 26.0-32.0 [facility] ([facility]) Erythrocyte distribution width [Ratio] by Automated count 12.6 % 11.6-13.7 [facility] ([facility]) MCHC 35.4 g/dL 31.0-38.0 [facility]) Platelets [#/volume] in Blood by Automated count 273 x10*3/UL 140-440 [facility] ([facility]) Lymph % 23.3 % 10.0-58.5 [facility]) MPV 7.3 FL 7.8-11.0 [facility]) Neut % 71.1 % 37.0-92.0 [facility]) Mid # 0.4 x10*3/UL 0.1-0.6 [facility] ([facility]) Lymph # 1.3 x10*3/UL 0.6-4.1 [facility] ([facility]) Mid % 5.6 % 1.7-9.3 [facility]) Neut # 4.2 x10*3/UL 2.0-7.8 [facility] ([facility]) ID Date Data Source [id number] 01/23/2020 03:53:00 PM EST [facility] Name Value Range Interpretation Code Description Data Tere rce(s) Supporting Document(s) SARS-CoV-2 (COVID-19) [facility] This lab was ordered by DEVIN Rose and [facility] in Medicine, [facility] and reported by [employer]. ID Date Data Source [id number] 09/23/2019 10:25:00 AM EDT [facility] ([facility]) Name Value Range Interpretation Code Description Data Tere rce(s) Supporting Document(s) <0.2 0.0-0.5 CRP [facility] ([facility]) ID Date Data Source [id number] 09/23/2019 10:25:00 AM EDT [facility] ([facility]) Name Value Range Interpretation Code Description Data Tere rce(s) Supporting Document(s) 56.4 mL/min/1.73m eGFR [facility] ([facility]) 1.0 mg/dL 0.6-1.2 CREATININE [facility] ([facility]) ID Date Data Source [id number] 09/23/2019 10:25:00 AM EDT [facility] ([facility]) Name Value Range Interpretation Code Description Data Tere rce(s) Supporting Document(s) 30 U/L 15-37 AST [facility] ID Date Data Source [id number] 09/23/2019 10:25:00 AM EDT [facility] ([facility]) Name Value Range Interpretation Code Description Data Tere rce(s) Supporting Document(s) 51 U/L 30-65 ALT [facility] ID Date Data Source [id number] 09/23/2019 10:25:00 AM EDT [facility] ([facility]) Name Value Range Interpretation Code Description Data Tere rce(s) Supporting Document(s) 4.6 g/dL 3.4-4.4 Above high normal ALB [facility] ([facility]) ID Date Data Source [id number] 09/23/2019 10:25:00 AM EDT [facility] ([facility]) Name Value Range Interpretation Code Description Data Tere rce(s) Supporting Document(s) 3 mm/Hr 0-20 ESR [facility] ID Date Data Source [id number] 09/23/2019 10:25:00 AM EDT [facility] ([facility]) Name Value Range Interpretation Code Description Data Tere rce(s) Supporting Document(s) 4.53 10*6/uL 3.50-5.50 RBC [facility] 6.3 10*3/uL 3.7-10.1 WBC [facility] ([facility]) 44.0 % 36.0-48.0 HCT [facility]) 14.6 g/dL 12.0-16.0 HGB [facility] ([facility]) 97.0 fL 80.0-100.0 MCV [facility] ([facility]) 33.2 g/dL 31.0-37.0 MCHC [facility] ([facility]) 11.6 % 10.0-15.0 RDW [facility] ([facility]) 285 10*3/uL 150-500 PLATELETS [facility] ([facility]) 32.2 pg 26.0-34.0 MCH [facility] ([facility]) 6.2 fL 6.0-10.0 MPV [facility] ([facility]) 1.68 10*3/uL 1.00-5.00 LYM# [facility] ([facility]) 3.67 10*3/uL 2.10-8.00 YAW# [facility] ([facility]) 0.79 10*3/uL 0.10-1.00 MONO# [facility] ([facility]) 0.1 10*3/uL 0.0-0.2 BASO# [facility] ([facility]) 58.0 % 50.0-80.0 YAW% [facility]) 0.1 10*3/uL 0.0-0.5 EOS# [facility] ([facility]) 26.6 % 25.0-50.0 LYM% [facility]) 1.2 % 0.0-4.0 BASO% [facility]) 1.8 % 0.0-5.0 EOS% [facility] ([facility]) 12.4 % 2.0-10.0 Above high normal MONO% [facility] ([facility]) ID Date Data Source [id number] 07/27/2019 06:28:29 PM EDT [facility] Name Value Range Interpretation Code Description Data Tere rce(s) Supporting Document(s) ESR 3 mm/h (0-30) [facility] ID Date Data Source [id number] 07/27/2019 06:57:29 PM EDT [facility] Name Value Range Interpretation Code Description Data Tere rce(s) Supporting Document(s) RHEUMATOID FACTOR @ <15 IU/mL (0-15) Laboratory [facility] ID Date Data Source [id number] 08/04/2019 05:55:42 PM EDT [facility] Name Value Range Interpretation Code Description Data Tere rce(s) Supporting Document(s) HEAT SHOCK PROTEIN Laboratory [facility] NegativeReference range: Negative INTERP RETIVE INFORMATION: Heat Shock Protein 70, IgG by Immunoblot The presence of HSP70 IgG antibodies may be useful in predicting corticosteroid responsiveness in a subset of patients with autoimmune inner ear disease (AIED) characterized by idiopathic rapidly progressive sensorineural hearing loss (SNHL). HSP70 IgG antibodies are also associated with a number of autoimmune diseases and have also been reported in apparently healthy individuals. A negative result does not rule out response to treatment or to a diagnosis of AIED. Test developed and characteristics determined by [facility]. See Compliance Statement D: [employer]/ Performed by [facility], [address] [place] [id number] [email or web address], Jerry Esqueda MD, Lab. Director ID Date Data Source [id number] 04/18/2019 12:00:[address] [facility] Ann Lepine Anp Patient Name: NIKI [id number] [facility] Date of : 1960[place] [address] Date of Exam: 04/18/2019#: Fax: [phone] EXAM: MAMMO SCREENING WITH CADCLINICAL INFORMATION: Prophylactic bilateral mastectomy.FAMILY HISTORY: Sister and aunt with breast cancer. Aunt with ovariancancer.Based on the personal and family history information your patient suppliedat the time of imaging, her lifetime risk of breast cancer estimated by theTyrer-Cuzick model is 16.2%. Given that this patient has less than 20% TCrisk score, no further medical management is currently recommended at [facility].MLO and CC views of both breasts were performed. There are bilateral breastimplants again noted which appear grossly intact. No mass or architecturaldistortion is seen. No suspicious clusters of microcalcifications are seen.No skin thickening is seen. Implant displaced views are not performed asthere is insufficient tissue.IMPRESSION:BI-RADS Category 2 Benign. No suspicious mass mass or clusters ofmicrocalcifications.This mammogram was read with the assistance of [employer], an FDAapproved computer aided detection system for mammography.Negative x-ray reports should not delay surgic al consultation if a dominantor clinically suspicious mass is present.Not all breast cancers can be identified by mammography. Therefore, werecommend that you continue to perform regular breast self-examination andphysical examination and then promptly contact your physician of anyconcerns or changes.Adenosis and dense breasts may obscure an underlying neoplasm.The patient states that the last clinical breast exam was 02/2019.JAE Mendes/Sivan you for referring NIKI HYLTON to our office. Electronically Signed - GAVIOTA MARINA MD 04/19/19 15:09 Name Value Range Interpretation Code Description Data Tere rce(s) Supporting Document(s) ID Date Data Source [id number] 02/15/2019 10:49:00 AM EST [facility] ([facility]) Name Value Range Interpretation Code Description Data Tere rce(s) Supporting Document(s) Cholesterol [Mass/volume] in Serum or Plasma 195 mg/dL 131-200 [facility] ([facility]) Cholesterol in HDL [Mass/volume] in Serum or Plasma 62 mg/dL 35-60 [facility] ([facility]) Triglyceride [Mass/volume] in Serum or Plasma 89 mg/dL 30-150 [facility] ([facility]) Cholesterol in LDL [Mass/volume] in Serum or Plasma by calcu lation 115 CALC 50-159 [facility] ([facility]) ID Date Data Source [id number] 02/15/2019 10:49:00 AM EST [facility] ([facility]) Name Value Range Interpretation Code Description Data Tere rce(s) Supporting Document(s) Glucose [Mass/volume] in Serum or Plasma 88 mg/dL 74-99 [facility] ([facility]) 100-125 mg/dL PRE-DIABETES/FASTING >126 mg/dL DIABETES/FASTING Urea nitrogen [Mass/volume] in Serum or Plasma 15 mg/dL 7-18 [facility] ([facility]) Creatinine 0.8 mg/dL 0.6-1.3 [facility] ([facility]) Sodium [Moles/volume] in Serum or Plasma 137 meq/L 136-145 [facility] ([facility]) Potassium [Moles/volume] in Serum or Plasma 4.0 meq/L 3.5-5.1 [facility] ([facility]) Carbon dioxide, total [Moles/volume] in Serum or Plasma 29 meq/L 21 -32 [facility] ([facility]) Chloride [Moles/volume] in Serum or Plasma 97 meq/L 98-107 [facility] ([facility]) Alkaline phosphatase isoenzyme [Units/volume] in Serum or Pl asma 49 mg/dL 46-116 [facility] ([facility]) Calcium [Mass/volume] in Serum or Plasma 9.7 mg/dL 8.5-10.1 [facility] Total Bilirubin 0.4 mg/dL 0.2-1.0 [facility] ([facility]) Aspartate aminotransferase [Enzymatic activity/volume] in Serum or Plasma 20 U/L 15-37 [facility] ([facility] ) Albumin [Mass/volume] in Serum or Plasma 4.3 g/dL 3.4-5.0 [facility] ([facility]) Alanine aminotransferase [Enzymatic activity/volume] in Seru m or Plasma 47 U/L 12-78 [facility] ([facility]) Proteinase 3 Ab [Units/volume] in Serum 7.2 g/dL 6.4-8.2 [facility] ([facility]) A/G Ratio 1.48 CALC 1.00-1.90 [facility] ([facility]) Glomerular filtration rate/1.73 sq M pre dicted among non-blacks [Volume Rate/Area] in Serum or Plasma by Creatinine-based formula (MDRD) >= 60 mL/min [facility] ([facility]) Glomerular filtration rate/1.73 sq M pre dicted among blacks [Volume Rate/Area] in Serum or Plasma by Creatinine-based formula (MDRD) >= 60 mL/min [facility] <content>CHRONIC KIDNEY DISEASE STAGING PER NKF</content>
<content></content>
<content>STAGE I & II GFR >= 60 NORMAL TO MILDLY DECREASED</content>
<content>STAGE III GFR 30-59 MODERATELY DECREASED</content>
<content>STAGE IV GFR 15-29 SEVERELY DECREASED</content>
<content>STAGE V GFR <15 VERY LITTLE GFR LEFT</content>
<content>ESRD GFR <15 ON HAZARDOUS MATERIAL TECHNICIAN</content>
<content></content> ID Date Data Source [id number] 02/15/2019 10:49:00 AM EST [facility] ([facility]) Name Value Range Interpretation Code Description Data Tere rce(s) Supporting Document(s) Hemoglobin [Mass/volume] in Blood 14.3 g/dL 12.0-18.0 [facility] ([facility]) Erythrocytes [#/volume] in Blood by Automated count 4.59 x10*6/UL 4.2 0-6.30 [facility] ([facility]) Leukocytes [#/volume] in Blood by Automated count 7.1 x10*3/UL 4.1-10 .9 [facility] ([facility]) Hematocrit [Volume Fraction] of Blood by Automated count 42.0 % 3 7.0-51.0 [facility] ([facility]) MCV 91.4 fL 80.0-97.0 [facility] ([facility]) MCH 31.3 pg 26.0-32.0 [facility] ([facility]) MCHC 34.2 g/dL 31.0-38.0 [facility] Erythrocyte distribution width [Ratio] by Automated count 12.9 % 11.6-13.7 [facility] ([facility]) MPV 7.1 FL 7.8-11.0 [facility] Platelets [#/volume] in Blood by Automated count 260 x10*3/UL 140-440 [facility] ([facility]) Lymph % 18.0 % 10.0-58.5 [facility] Lymph # 1.2 x10*3/UL 0.6-4.1 [facility] ([facility]) Mid % 5.4 % 1.7-9.3 [facility] Neut % 76.6 % 37.0-92.0 [facility] ([facility]) Mid # 0.5 x10*3/UL 0.1-0.6 [facility] ([facility]) Neut # 5.4 x10*3/UL 2.0-7.8 [facility] ([facility]) Procedure Social History Code Duration Value Status Description Data Source(s ) Caffeine Use Details 03/30/2020 12:00:00 AM EST coffee, 2 cups comp leted coffee, 2 cups [facility] ([facility]) 03/30/2020 12:00:00 AM EST Never smoked tobacco comple maris Never smoked tobacco [facility] ([facility]) Smoking 03/30/2020 12:00:00 AM EST Never smoker completed Never s moker [facility] ([facility]) Smoking 08/30/2019 12:00:00 AM EDT Patient has never smoked co mpleted Patient has never smoked [facility] ([facility] ) Caffeine Use Details 03/25/2019 12:00:00 AM EST completed coffee, 2 cups [facility] ([facility]) Vital Signs ID Date Data Source [id number] Name Value Range Interpretation Code Description Data Source(s) Body surface area Derived from formula 1.73 m2 1.73 m2 [facility] ([facility], ) Body weight 68.040 kg 68.040 kg [facility] ([facility] ) [place] body weight 120 [lb_av] 120 [lb_av] [facility] ([facility]) Body mass index (BMI) [Ratio] 25.7 kg/m2 25.7 k g/m2 [facility] ([facility]) Body weight 150.00 [lb_av] 150.00 [lb_av] [facility] Body height 64 [in_i] 64 [in_i] [facility] ([facility]) 5'4" Body mass index (BMI) [Ratio] 25.75 kg/m2 Overweight 25.75 kg/m2 [facility] ([facility]) Diastolic blood pressure 82 mm[Hg] 82 mm[Hg] [facility] ([facility]) Systolic blood pressure 122 mm[Hg] 122 mm[Hg] N [facility] ([facility]) Body weight 68.039 kg 68.039 kg [facility] ([facility]) Body height 162.56 cm 162.56 cm [facility] Body mass index (BMI) [Ratio] 25.4 kg/m2 25.4 k g/m2 [facility] ([facility]) Oxygen saturation in Arterial blood by Pulse oximetry 98 % 98 % [facility] Body weight 148.00 [lb_av] 148.00 [lb_av] [facility] ([facility]) Body height 64 [in_i] 64 [in_i] [facility] ([facility]) 5'4" Heart rate 86 /min 86 /min [facility] ([facility]) Body mass index (BMI) [Ratio] 25.06 kg/m2 Overweight 25.06 kg/m2 [facility] ([facility]) Diastolic blood pressure 80 mm[Hg] 80 mm[Hg] [facility] ([facility]) Systolic blood pressure 108 mm[Hg] 108 mm[Hg] N [facility] ([facility]) Body weight 66.224 kg 66.224 kg [facility] ([facility]) Body height 162.56 cm 162.56 cm [facility] Body mass index (BMI) [Ratio] 25.4 kg/m2 25.4 k g/m2 [facility] ([facility]) Oxygen saturation in Arterial blood by Pulse oximetry 97 % 97 % [facility] ([facility]) Body weight 148.00 [lb_av] 148.00 [lb_av] [facility] ([facility]) Body height 64 [in_i] 64 [in_i] [facility] ([facility]) 5'4" Heart rate 78 /min 78 /min [facility] ([facility]) Diastolic blood pressure 70 mm[Hg] 70 mm[Hg] [facility] ([facility]) Systolic blood pressure 120 mm[Hg] 120 mm[Hg] M [facility] ([facility]) Body mass index (BMI) [Ratio] 25.4 kg/m2 25.4 k g/m2 [facility] ([facility] Diastolic blood pressure 72 mm[Hg] 72 mm[Hg] [facility] ([facility]) Systolic blood pressure 105 mm[Hg] 105 mm[Hg] [facility] ([facility]) Respiratory rate 16 /min 16 /min [facility] ( [facility]) Heart rate 74 /min 74 /min [facility] Body height 64 [in_i] 64 [in_i] [facility] 5'4" Body weight 148.00 [lb_av] 148.00 [lb_av] [facility] ([facility]) Body surface area Derived from formula 1.73 m2 1.73 m2 [facility] ([facility]) Body weight 68.040 kg 68.040 kg [facility] ([facility]) [place] body weight 120 [lb_av] 120 [lb_av] [facility] ([facility] [facility] Body mass index (BMI) [Ratio] 25.7 kg/m2 25.7 k g/m2 [facility] ([facility]) Body weight 150.00 [lb_av] 150.00 [lb_av] MEDEN T ([facility]) Body height 64 [in_i] 64 [in_i] [facility] ([facility]) 5'4" Body weight 68.040 kg 68.040 kg [facility] ([facility]) Body mass index (BMI) [Ratio] 25.7 kg/m2 25.7 k g/m2 [facility] ([facility], ) Body weight 150.00 [lb_av] 150.00 [lb_av] MEDEN T ([facility]) Body height 64 [in_i] 64 [in_i] [facility] ([facility], ) 5'4" Body mass index (BMI) [Ratio] 25.7 kg/m2 25.7 k g/m2 [facility] ([facility]) Body weight 145.00 [lb_av] 145.00 [lb_av] MEDEN T ([facility]) Body height 63 [in_i] 63 [in_i] [facility] ([facility]) 5'3" Body temperature 98.4 [degF] 98.4 [degF] [facility] ([facility]) Body mass index (BMI) [Ratio] 25.7 kg/m2 25.7 k g/m2 [facility] ([facility]) Oxygen saturation in Arterial blood by Pulse oximetry 96 % 96 % [facility] ([facility]) Body weight 150.00 [lb_av] 150.00 [lb_av] MEDEN T ([facility]) Body height 64 [in_i] 64 [in_i] [facility] ([facility]) 5'4" Heart rate 86 /min 86 /min [facility] ([facility]) Diastolic blood pressure 80 mm[Hg] 80 mm[Hg] [facility] ([facility]) Systolic blood pressure 134 mm[Hg] 134 mm[Hg] [facility] ([facility]) Body mass index (BMI) [Ratio] 26.1 kg/m2 26.1 k g/m2 [facility] ([facility]) Diastolic blood pressure 83 mm[Hg] 83 mm[Hg] [facility] ([facility]) Systolic blood pressure 145 mm[Hg] 145 mm[Hg] [facility] ([facility]) Respiratory rate 16 /min 16 /min [facility] ( [facility]) Heart rate 73 /min 73 /min [facility] ([facility] Body height 64 [in_i] 64 [in_i] [facility] ([facility] 5'4" Body weight 152.25 [lb_av] 152.25 [lb_av] MEDEN T ([facility] Body mass index (BMI) [Ratio] 25.66 kg/m2 Overweight 25.66 kg/m2 [facility] ([facility]) Diastolic blood pressure 72 mm[Hg] 72 mm[Hg] [facility] ([facility]) Systolic blood pressure 124 mm[Hg] 124 mm[Hg] N [facility] ([facility]) Body weight 69.400 kg 69.400 kg [facility] ([facility]) Body height 164.47 cm 164.47 cm [facility]) Body mass index (BMI) [Ratio] 25.4 kg/m2 25.4 k g/m2 [facility] ([facility]) Oxygen saturation in Arterial blood by Pulse oximetry 95 % 95 % [facility] ([facility]) Body weight 148.00 [lb_av] 148.00 [lb_av] BRIANDA Grijalva ([facility]) Body height 64 [in_i] 64 [in_i] [facility] ([facility]) 5'4" Body temperature 97.4 [degF] 97.4 [degF] [facility] ([facility]) Heart rate 80 /min 80 /min [facility] ([facility]) Diastolic blood pressure 70 mm[Hg] 70 mm[Hg] [facility] ([facility]) Systolic blood pressure 122 mm[Hg] 122 mm[Hg] M EDDEVON ([facility]) Patient Treatment Plan of Care Planned Activity Planned Date Details Description Data Source (s) Hydroxychloroquine Sulfate 200 MG Oral Tablet [[place]] 03/30/2020 12:00:00 AM EST [facility] ([facility]) Hydroxychloroquine Sulfate 200 MG Oral Tablet [[place]] 03/20/2020 12:00:00 AM EST [facility] ([facility]) Hydroxychloroquine Sulfate 200 MG Oral Tablet [[place]] 12/28/2019 12:00:00 AM EDT [facility] ([facility]) Hydroxychloroquine Sulfate 200 MG Oral Tablet [[place]] 05/03/2019 12:00:00 AM EST [facility] ([facility]) Hydroxychloroquine Sulfate 200 MG Oral Tablet [[place]] 11/01/2018 12:00:00 AM EDT [facility] ([facility]) hydrocortisone valerate 2 MG/ML Topical Cream 09/23/2018 12:00:00 A M EDT [facility] ([facility]) 30 ACTUAT fluticasone furoate 0.2 MG/ACT UAT / vilanterol 0.025 MG/ACTUAT Dry Powder Inhaler [Breo] [facility] ([facility]) CRANBERRY (unknown strength) [facility] ([facility]) Calcium Carbonate 1500 MG Oral Tablet [facility] ([facility]) Riboflavin 100 MG Oral Tablet [facility] ([facility]) zinc 50 mg tablet [facility] azelastine 0.15 % (205.5 mcg) nasal spray [facility] ([facility]) Citalopram 20 MG Oral Tablet [facility] ([facility]) ESTROVEN (unknown strength) [facility] ([facility]) Estradiol 0.01 MG Vaginal Tablet [facility] ([facility])
[2020-04-13] MEDS ORDERED: METOCLOPRAMIDE INJ 10MG/2ML VIAL (J2765 PER 1) IV ONE (09:45)
[2020-04-13 09:58] LABS: BASO % 0.6 % (0.0-1.0); EOS # 0.1 10^3/uL (0.0-0.5); EOS % 2.1 % (0.0-3.0); HEMATOCRIT 41.3 % (36.0-47.0); HEMOGLOBIN 14.4 g/dl (12.0-15.5); LYMPH # 1.7 10^3/uL (1.5-5.0); MEAN CORPUSCULAR HEMOGLOBIN 31.5 pg (27.0-33.0); MEAN CORPUSCULAR HGB CONC 34.9 g/dl (32.0-36.5); MEAN CORPUSCULAR VOLUME 90.4 fl (80.0-96.0); MONO # 0.9 10^3/uL (0.0-0.8); MONO % 13.8 % (0.0-5.0); NEUTROPHILS # 3.9 10^3/uL (1.5-8.5); NEUTROPHILS % 58.1 % (36.0-66.0); PLATELET COUNT, AUTOMATED 287 10^3/uL (150-450); RED BLOOD COUNT 4.57 10^6/uL (4.00-5.40); WHITE BLOOD COUNT 6.8 10^3/uL (4.0-10.0)
[2020-04-13 10:33] LABS: BLOOD UREA NITROGEN 10 MG/DL (7-18); CARBON DIOXIDE LEVEL 25 MEQ/L (21-32); CHLORIDE LEVEL 90 MEQ/L (98-107); CREATININE FOR GFR 0.58 MG/DL (0.55-1.30); GLOMERULAR FILTRATION RATE > 60.0 (>45); GLUCOSE, FASTING 89 MG/DL (70-100); MAGNESIUM LEVEL 1.9 MG/DL (1.8-2.4); POTASSIUM SERUM 4.4 MEQ/L (3.5-5.1); SODIUM LEVEL 124 MEQ/L (136-145)
[2020-04-13] MEDS ORDERED: NS 1,000 ML IV SCH (10:45)
[2020-04-13 11:11] LABS: APPEARANCE, URINE CLEAR (CLEAR); BACTERIA, URINE AUTO NEGATIVE (NEGATIVE); BILIRUBIN, URINE AUTO NEGATIVE (NEGATIVE); BLOOD, URINE BLOOD NEGATIVE (NEGATIVE); COLOR, URINE STRAW (YELLOW); GLUCOSE, URINE (UA) AUTO NEGATIVE (NEGATIVE); KETONE, URINE AUTO NEGATIVE (NEGATIVE); LEUKOCYTE ESTERASE, URINE AUTO NEGATIVE (NEGATIVE); NITRITE, URINE AUTO NEGATIVE (NEGATIVE); PROTEIN, URINE AUTO NEGATIVE (NEGATIVE); RBC, URINE AUTO 1 /HPF (0-3); SPECIFIC GRAVITY URINE AUTO 1.011 (1.002-1.035); SQUAMOUS EPITHELIAL CELL UR AU 0 /HPF (0-6); UROBILINOGEN, URINE AUTO 0.2 mg/dL (0.0-2.0); WBC, URINE AUTO 1 /HPF (0-3)
[2020-04-13 11:27] LABS: CORTISOL BASELINE 13.4 UG/DL (4.3-22.4)
[2020-04-13 11:37] LABS: CREATININE,RANDOM URINE 38.1 MG/DL
[2020-04-13 11:46] LABS: FREE T4 1.22 NG/DL (0.76-1.46); THYROID STIMULATING HORMONE 1.54 uIU/ML (0.358-3.740)
[2020-04-13] MEDS ORDERED: VITMTA PO (12:03)
[2020-04-13] MEDS ORDERED: SUPETAB44 PO (12:03)
[2020-04-13] MEDS ORDERED: COQ1200C PO (12:03)
[2020-04-13] MEDS ORDERED: D31000TA2 PO (12:03)
[2020-04-13] MEDS ORDERED: AZEL0.055 NARES (12:03)
[2020-04-13] MEDS ORDERED: ROSU10TA6 PO (12:03)
[2020-04-13] MEDS ORDERED: MONT5TAB2 PO (12:03)
[2020-04-13] MEDS ORDERED: HYDR200T3 PO (12:03)
[2020-04-13] MEDS ORDERED: RABE1TAB PO (12:03)
[2020-04-13] MEDS ORDERED: FAMC250T PO (12:03)
[2020-04-13] MEDS ORDERED: CALC600T60 PO (12:03)
[2020-04-13] MEDS ORDERED: ASPI81TA26 PO (12:03)
[2020-04-13] MEDS ORDERED: ASCO250T20 PO (12:03)
[2020-04-13] MEDS ORDERED: CETI-24 PO (12:03)
[2020-04-13] MEDS ORDERED: OMEGCAP4 PO (12:03)
[2020-04-13] MEDS ORDERED: MAGN400T3 PO (12:03)
[2020-04-13] MEDS ORDERED: VITA100T39 PO (12:03)
--- NOTE | 2020-04-13 12:25 | REP ---
INDICATION: Hyponatremia. COMPARISON: Comparison chest x-ray is from June 24, 2017. TECHNIQUE: Portable upright AP chest radiograph. FINDINGS: The lungs are well inflated and free of infiltrate. Pleural angles are sharp. Heart size is normal. Pulmonary vasculature is not increased. No infiltrate is seen. Breast augmentation implants are noted. No bony abnormality is seen. IMPRESSION: No active disease. <Electronically signed by Win Mackey > 04/13/20 [id number]
[2020-04-13] MEDS: NS 1,000 ML IV SCH ×2 (12:30→17:29)
[2020-04-13] MEDS ORDERED: PILL CUTTER 1 EACH XX PRN (13:30)
[2020-04-13] MEDS ORDERED: MECLIZINE 12.5 MG TAB PO PRN (13:30)
[2020-04-13 13:34] LABS: RSV AMPLIFICATION NEGATIVE (NEGATIVE)
[2020-04-13] MEDS: ACETAMINOPHEN TAB 650MG DOSE (2X325MG) PO PRN ×2 (14:05→20:31)
--- NOTE | 2020-04-13 14:12 | REP ---
INDICATION: Vertigo / Nausea. COMPARISON: Comparison head CT study July 23, 2017.. TECHNIQUE: Helical scanning is acquired. 5 mm axial images were reformatted. Coronal MPR images were generated. FINDINGS: Bone window settings demonstrate an intact bony calvarium. There is no evidence of skull fracture or incidental bony calvarial lesion. The visualized paranasal sinuses appear clear. No intraorbital abnormality is seen. On soft tissue window setting images; the lateral, third, and fourth ventricles are normal in size and position. Virk-white differentiation pattern is normal above and below the tentorium. There are is no evidence of intracranial hemorrhage. No mass, edema, infarction, or midline shift is seen. No extra-axial fluid collection is appreciated. IMPRESSION: Negative noncontrast head CT. <Electronically signed by Win Mackey > 04/13/20 [id number]
--- NOTE | 2020-04-13 14:15 | REP ---
INDICATION: Face fullness. COMPARISON: NONE. TECHNIQUE: Helical scanning is acquired and 2 mm axial images re-formatted. Coronal MPR images are generated and reviewed. FINDINGS: Mastoid aeration is normal and symmetric. The maxillary sinuses are clear. Ethmoid, sphenoid, and frontal sinuses are clear bilaterally. No orbital soft tissue mass is seen. No Marily orbital or facial soft tissue swelling is observed. There are punctate calcifications in the inferior aspect of the right parotid gland consistent with prior parotitis and dystrophic calcifications. Submandibular glands are. Normal and symmetric. Left parotid gland is unremarkable. No deep facial mass is seen. Tonsillar and peritonsillar soft tissues are unremarkable. Nasopharynx is normal in appearance. No skull base lesion is seen. No mandibular lesion is appreciated. There are osteoarthritic changes at the temporomandibular joints bilaterally. Degenerative spondylosis changes are seen in the cervical spine with degenerative disc disease most pronounced at C5-6 and reversal of normal cervical lordosis. The bony nasal septum is in the midline. Nasal turbinates soft tissues are symmetric. Ostiomeatal complexes are patent. IMPRESSION: No evidence of paranasal sinus disease or soft tissue mass. No bony destructive lesion is seen. 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 Dystrophic calcifications in the inferior aspect of the right parotid gland. Otherwise negative <Electronically signed by Win Mackey > 04/13/20 [id number]
--- NOTE | 2020-04-13 15:03 | HPEPDOC ---
[facility] Medical History & Physical Date of Admission Apr 13, 2020 Date of Service: Apr 13, 2020 History and Physical Chief complaint: Who presented to the ER with complaints of weakness History of present illness: Patient is a 59-year-old female who presented to the emergency room with complaints of weakness. Patient reported that she saw her ENT doctor last week and was prescribed prednisone for 7 days that she has completed 2 days ago noted that she continues to experience weakness. Today she was experiencing nausea and vomiting because her Mnires symptoms had worsened. Patient had one episode of vomiting without blood. Denies any chest pain, shortness of breath. Does report a mild nonproductive cough. Reports mostly sinus congestion. Patient denies any abdominal pain. Reports constipation without diarrhea. Denies any urinary discomfort. Has not experience any fevers or chills. In the emergency room, patient was found to be hyponatremic and Hospital services called for admission. Past Medical History: Menieres disease Sjogrens disease DLP Recurrent UTI Overactive bladder Past Surgical History: Tonsillectomy Bilateral tubal ligation Lumpectomy Mastectomy Allergies: See below Medications: See below Family History: - Father with a history of lung cancer - Sr. 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 Review of Systems: 10 point review of systems complete, all negative otherwise stated in HPI Physical exam: - Vitals: BP [131/81], HR [71], RR [20], Sat [98%RA], Temp [97.7F] - General: Lying in bed, Speaking in full sentences, AAOx3 - HEENT: NC, AT, PERRLA, Left ear with some erythema noted - CVS: RRR, +S1S2 - Lungs: Fair air entry bilaterally, No appreciable wheezing / rales / rhonchi - Abdomen: Soft, Non-distended, Non-tender - Extremities: No lower extremity edema, No calf tenderness - Neuro: 5/5 strength at upper/lower extremities bilaterally; patient reports difficult to hear out of L ear - Skin: No visible rashes Labs: See below Imaging: See below EKG: See below Assessment and Plan: Hyponatremia - likely 2/2 hypotonic hypovolemic etiology - 2/2 poor oral intake and nausea/vomiting - Currently appears to be hypovolemic/euvolemic - Urine electrolytes noted - Will provide gentle IV fluid hydration - Will check BMP q6 hours Left ear fullness - possibly 2/2 otitis media / sinusitis - Patient reports facial fullness; possibly 2/2 sinusitis - No signs of system infection - Afebrile - No leukocytosis - Will check lactic acid - Will get CT head / CT maxillofacial - Discussed with ENT; will advise of CT findings Menieres disease - Patient reports some exacerbation of her symptoms - Will start Meclizine Migraine headaches - Will hold Ketorolac Sjogrens disease - c/w Hydroxychloroquine DLP - c/w [place] 3 / Rosuvastatin - Will resume ASA after CT head Recurrent UTI - UA negative Overactive bladder Chronic hypomagnesemia - c/w magnesium supplementation Vitamin D deficiency - c/w supplementation DVT prophylaxis - Will start TEDs/Sequentials Vital Signs Vital Signs Date Time Temp Pulse Resp B/P (MAP) Pulse Ox O2 Delivery O2 Flow Rate FiO2 04/13/20 14:00 70 121/79 (93) 97 04/13/20 10:30 20 Room Air 04/13/20 08:40 97.7 Laboratory Data Labs 24H Laboratory Tests 2 04/13/20 09:31: Immature Granulocyte % (Auto) 0.4, Neutrophils (%) (Auto) 58.1, Lymphocytes (%) (Auto) 25.0, Monocytes (%) (Auto) 13.8H, Eosinophils (%) (Auto) 2.1, Basophils (%) (Auto) 0.6, Neutrophils # (Auto) 3.9, Lymphocytes # (Auto) 1.7, Monocytes # (Auto) 0.9H, Eosinophils # (Auto) 0.1, Basophils # (Auto) 0.0, Nucleated Red Blood Cells % (auto) 0.0, Anion Gap 9, Glomerular Filtration Rate > 60.0, Calcium Level 9.0, Magnesium Level 1.9, Cortisol Baseline 13.4 04/13/20 10:52: Urine Random Osmolality 393L, Urine Random Creatinine 38.1, Urine Random Sodium 97, Osmolality 251L, Thyroid Stimulating Hormone (TSH) 1.540, Free Thyroxine 1.22 04/13/20 10:55: Urine Color STRAW, Urine Appearance CLEAR, Urine pH 7.0, Urine Specific [place] [address] 1.011, Urine Protein NEGATIVE, Urine Glucose (Auto)(UA) NEGATIVE, Urine Ketones (Auto) NEGATIVE, Urine Blood NEGATIVE, Urine Nitrite NEGATIVE, Urine Bilirubin NEGATIVE, Urine Urobilinogen 0.2, Urine Leukocyte Esterase (Auto) NEGATIVE, Urine WBC (Auto) 1, Urine RBC (Auto) 1, Urine Hyaline Casts (Auto) 0, Urine Bacteria (Auto) NEGATIVE, Urine Squamous Epithelial Cells 0, Urine Sperm (Auto) 04/13/20 12:50: Coronavirus (COVID-19)(PCR) NEGATIVE, Influenza Type A (RT-PCR) NEGATIVE, Influ devaughn Type B (RT-PCR) NEGATIVE, Respiratory Syncytial Virus (PCR) NEGATIVE CBC/BMP Laboratory Tests 04/13/20 09:31 Home Medications Scheduled Ascorbic Acid (Vitamin C) 250 Mg Tablet, 250 MG PO BID Aspirin (Aspirin EC) 81 Mg Tablet.dr, 81 MG PO DAILY Calcium Carbonate (Calcium) 600 Mg Tablet, 600 MG PO DAILY TAKES AT NOON Cetirizine HCl (Cetirizine HCl) 10 Mg Tablet, 10 MG PO DAILY Cholecalciferol (Vitamin D3) (Vitamin D3) 1,000 Unit Tablet, 3,000 UNITS PO DAILY Fluticasone/Vilanterol (Breo Ellipta 100-25 Mcg INH) 1 Each Blst.w.dev, 1 PUFF INH DAILY Folic Acid/Vit B Complex and C (Super B Complex Tablet) 400 Mcg Tablet, 1 TAB PO DAILY Hydroxychloroquine Sulfate (Hydroxychloroquine Sulfate) 200 Mg Tablet, 300 MG PO DAILY Magnesium Oxide (Magnesium Oxide) 400 Mg Tablet, 400 MG PO QHS Montelukast Sodium (Montelukast Sodium) 10 Mg Tablet, 10 MG PO QHS Multivitamins (Thera M Plus Tablet) 1 Each Tablet, 1 TAB PO DAILY [place]-3/Dha/Epa/Fish Oil ([place]-3 Fish Oil 1,000 mg Sfgl) 1,000 Mg Capsule, 1,000 MG PO TID Rabeprazole Sodium (Rabeprazole Sodium) 20 Mg Tablet.dr, 20 MG PO DAILY TAKES AT NOON Riboflavin (Vitamin B2) (Vitamin B-2) 100 Mg Tablet, 200 MG PO BID TAKES AM/NOON Rosuvastatin Calcium (Rosuvastatin Calcium) 10 Mg Tablet, 10 MG PO QHS Triamcinolone Acetonide (Nasacort) 10.[address] [place], 2 SPRAY NARES QHS Ubidecarenone (Co Q-10) 200 Mg Capsule, 200 MG PO BID Zinc (Zinc) 50 Mg Tablet, 50 MG PO DAILY Scheduled PRN Azelastine HCl (Azelastine HCl) 0.15% [place].pump, 2 SPRAY NARES DAILY PRN for CONGESTION Famciclovir (Famciclovir) 250 Mg Tablet, 250 MG PO BID PRN for HERPES FLARE Ketorolac Tromethamine (Ketorolac Tromethamine) 10 Mg Tablet, 10 MG PO Q6H PRN for MIGRAINE Allergies Coded Allergies: amoxicillin (Verified Allergy, Intermediate, rash, 09/06/18) clavulanic acid (Verified Allergy, Intermediate, rash, 09/06/18) Sulfa (Sulfonamide Antibiotics) (Verified Allergy, Mild, rash, 04/13/20) meloxicam (Verified Adverse Reaction, Unknown, ANXIETY, 04/13/20) JAISON RONDON MD Apr 13, 2020 15:03
--- OUTSIDE RECORDS SUMMARY | 2020-04-13 15:04 | CCD ---
Author Author [facility] Organization [facility] Address Unknown Phone Unavailable Care Team Providers Care Fire Investigator Name Role Phone DINESH HARTMAN MD Unavailable Unavailable DINESH HARTMAN MD Unavailable Unavailable DINESH HARTMAN MD Unavailable Unavailable DINESH HARTMAN MD Unavailable Unavailable DINESH HARTMAN MD Unavailable Unavailable DINESH HARTMAN MD Unavailable Unavailable DINESH HARTMAN MD Unavailable Unavailable DINESH HARTMAN MD Unavailable Unavailable DINESH HARTMAN MD Unavailable Unavailable DINESH HARTMAN MD Unavailable Unavailable IDNESH HARTMAN MD Unavailable Unavailable DINESH HARTMAN MD [...] Stephanie MPAS, PA-C Unavailable Unavailabl e Fish, [facility], PA-C Unavailable Unavailabl e Fish, [facility], PA-C Unavailable Unavailabl e Fish, [facility], PA-C Unavailable Unavailabl e Fish, [facility], PA-C Unavailable Unavailabl e Fish, [facility], PA-C Unavailable Unavailabl e Fish, [facility], PA-C Unavailable Unavailabl e Fish, [facility], PA-C Unavailable Unavailabl e Fish, [facility], PA-C Unavailable Unavailabl e Fish, [facility], PA-C Unavailable Unavailabl e Fish, [facility], PA-C Unavailable Unavailabl e Fish, [facility], PA-C Unavailable Unavailabl e Fish, [facility], PA-C Unavailable Unavailabl e Fish, [facility], PA-C Unavailable Unavailabl e Fish, [facility], PA-C Unavailable Unavailabl e Fish, [facility], PA-C Unavailable Unavailabl e Fish, [facility], PA-C Unavailable Unavailabl e Fish, [facility], PA-C Unavailable Unavailabl e Fish, [facility], PA-C Unavailable Unavailabl e Fish, [facility], PA-C Unavailable Unavailabl e Fish, [facility], PA-C Unavailable Unavailabl e Fish, [facility], PA-C Unavailable Unavailabl e Fish, [facility], PA-C Unavailable Unavailabl e Fish, [facility], PA-C Unavailable Unavailabl e Fish, [facility], PA-C Unavailable Unavailabl e Fish, [facility], PA-C Unavailable Unavailabl e Fish, [facility], PA-C Unavailable Unavailabl e Brian Santos MD [...] MD Unavailable Unavailable SLOANEMONTSE MD Unavailable Unavailable SLAONEMONTSE MD Unavailable Unavailable SLOANEMONTSE MD Unavailable Unavailable SLOANEMONTSE MD Unavailable Unavailable SLOANE, MONTSE MD Unavailable Unavailable LePine, M Mari SOCCER REFEREE Unavailable Unavailable LePine, M Mari SOCCER REFEREE Unavailable Unavailable LePine, M Mari SOCCER REFEREE Unavailable Unavailable Le[place]ine, M Mari SOCCER REFEREE Unavailable Unavailable LePine, M Mari SOCCER REFEREE Unavailable Unavailable Le[place]ine, M Mari SOCCER REFEREE Unavailable Unavailable LePine, M Mari SOCCER REFEREE Unavailable Unavailable Le[place]ine, M Mari SOCCER REFEREE Unavailable Unavailable Le[place]ine, M Mari SOCCER REFEREE Unavailable Unavailable Le[place], M Mari SOCCER REFEREE Unavailable Unavailable Le[place]ine, M Mari SOCCER REFEREE Unavailable Unavailable LePine, M Mari SOCCER REFEREE Unavailable Unavailable LePine, M Mari SOCCER REFEREE Unavailable Unavailable LePine, M Mari SOCCER REFEREE Unavailable Unavailable LePine, M Mari SOCCER REFEREE Unavailable Unavailable LePine, M Mari SOCCER REFEREE Unavailable Unavailable LePine, M Mari SOCCER REFEREE Unavailable Unavailable LePine, M Mari SOCCER REFEREE Unavailable Unavailable LePine, M Mari SOCCER REFEREE Unavailable Unavailable LePine, M Mari SOCCER REFEREE Unavailable Unavailable LePine, M Mari SOCCER REFEREE Unavailable Unavailable LePine, M Mari SOCCER REFEREE Unavailable Unavailable LePine, M Mari SOCCER REFEREE Unavailable Unavailable LePine, M Mari SOCCER REFEREE Unavailable Unavailable LePine, M Mari SOCCER REFEREE Unavailable Unavailable LePine, M Mari SOCCER REFEREE Unavailable Unavailable LePine, M Mari SOCCER REFEREE Unavailable Unavailable LePine, M Mari SOCCER REFEREE Unavailable Unavailable LePine, M Mari SOCCER REFEREE Unavailable Unavailable LePine, M Mari SOCCER REFEREE Unavailable Unavailable LePine, M Mari SOCCER REFEREE Unavailable Unavailable LePine, M Mari SOCCER REFEREE Unavailable Unavailable LePine, M Mari SOCCER REFEREE Unavailable Unavailable LePine, M Mari SOCCER REFEREE Unavailable Unavailable LePine, M Mari SOCCER REFEREE Unavailable Unavailable LePine, M Mari SOCCER REFEREE Unavailable Unavailable LePine, M Mari SOCCER REFEREE Unavailable Unavailable LePine, M Mari SOCCER REFEREE Unavailable Unavailable LePine, M Mari SOCCER REFEREE Unavailable Unavailable LePine, M Mari SOCCER REFEREE Unavailable Unavailable LePine, M Mari SOCCER REFEREE Unavailable Unavailable LePine, M Mari SOCCER REFEREE Unavailable Unavailable LePine, M Mari SOCCER REFEREE Unavailable Unavailable LePine, M Mari SOCCER REFEREE Unavailable Unavailable LePine, M Mari SOCCER REFEREE Unavailable Unavailable LePine, M Mari SOCCER REFEREE Unavailable Unavailable LePine, M Mari SOCCER REFEREE Unavailable Unavailable LePine, M Mari SOCCER REFEREE Unavailable Unavailable LePine, M Mari SOCCER REFEREE Unavailable Unavailable LePine, M Mari SOCCER REFEREE Unavailable Unavailable LePine, M Mari SOCCER REFEREE Unavailable Unavailable LePine, M Mari SOCCER REFEREE Unavailable Unavailable LePine, M Mari SOCCER REFEREE Unavailable Unavailable LePine, M Mari SOCCER REFEREE Unavailable Unavailable LePine, M Mari SOCCER REFEREE Unavailable Unavailable Overholt, T Aryan PA Unavailable [...] Unavailable Олег Gamboa MD Unavailable Unavailable Олег Gamoba MD Unavailable Unavailable Олег Gamboa MD Unavailable [...] Gamboa MD Unavailable Unavailable LePine, M Mari SOCCER REFEREE Unavailable Unavailable LePine, M Mari SOCCER REFEREE Unavailable Unavailable LePine, M Mari SOCCER REFEREE Unavailable Unavailable LePine, M Mari SOCCER REFEREE Unavailable Unavailable LePine, M Mari SOCCER REFEREE Unavailable Unavailable LePine, M Mari SOCCER REFEREE Unavailable Unavailable LePine, M Mari SOCCER REFEREE Unavailable Unavailable LePine, M Mari SOCCER REFEREE Unavailable Unavailable LePine, M Mari SOCCER REFEREE Unavailable Unavailable LePine, M Mari SOCCER REFEREE Unavailable Unavailable LePine, M Mari SOCCER REFEREE Unavailable Unavailable LePine, M Mari SOCCER REFEREE Unavailable Unavailable LePine, M Mari SOCCER REFEREE Unavailable Unavailable LePine, M Mari SOCCER REFEREE Unavailable Unavailable LePine, M Mari SOCCER REFEREE Unavailable Unavailable LePine, M Mari SOCCER REFEREE Unavailable Unavailable LePine, M Mari SOCCER REFEREE Unavailable Unavailable LePine, M Mari SOCCER REFEREE Unavailable Unavailable LePine, M Mari SOCCER REFEREE Unavailable Unavailable LePine, M Mari SOCCER REFEREE Unavailable Unavailable LePine, M Mari SOCCER REFEREE Unavailable Unavailable LePine, M Mari SOCCER REFEREE Unavailable Unavailable LePine, M Mari SOCCER REFEREE Unavailable Unavailable LePine, M Mari SOCCER REFEREE Unavailable Unavailable LePine, M Mari SOCCER REFEREE Unavailable Unavailable LePine, M Mari SOCCER REFEREE Unavailable Unavailable LePine, M Mari SOCCER REFEREE Unavailable Unavailable LePine, M Mari SOCCER REFEREE Unavailable Unavailable LePine, M Mari SOCCER REFEREE Unavailable Unavailable LePine, M Mari SOCCER REFEREE Unavailable Unavailable LePine, M Mari SOCCER REFEREE Unavailable Unavailable LePine, M Mari SOCCER REFEREE Unavailable Unavailable LePine, M Mari SOCCER REFEREE Unavailable Unavailable LePine, M Mari SOCCER REFEREE Unavailable Unavailable LePine, M Mari SOCCER REFEREE Unavailable Unavailable LePine, M Mari SOCCER REFEREE Unavailable Unavailable LePine, M Mari SOCCER REFEREE Unavailable Unavailable LePine, M Mari SOCCER REFEREE Unavailable Unavailable LePine, M Mari SOCCER REFEREE Unavailable Unavailable LePine, M Mari SOCCER REFEREE Unavailable Unavailable LePine, M Mari SOCCER REFEREE Unavailable Unavailable LePine, M Mari SOCCER REFEREE Unavailable Unavailable LePine, M Mari SOCCER REFEREE Unavailable Unavailable LePine, M Mari SOCCER REFEREE Unavailable Unavailable LePine, M Mari SOCCER REFEREE Unavailable Unavailable LePine, M Mari SOCCER REFEREE Unavailable Unavailable LePine, M Mari SOCCER REFEREE Unavailable Unavailable LePine, M Mari SOCCER REFEREE Unavailable Unavailable LePine, M Mari SOCCER REFEREE Unavailable Unavailable LePine, M Mari SOCCER REFEREE Unavailable Unavailable LePine, M Mari SOCCER REFEREE Unavailable Unavailable LePine, M Mari SOCCER REFEREE Unavailable Unavailable LePine, M Mari SOCCER REFEREE Unavailable Unavailable LePine, M Mari SOCCER REFEREE Unavailable Unavailable LePine, M Mari SOCCER REFEREE Unavailable Unavailable Tibbits, Celina Trudy ART CRITIC Unavailable Unavailable Tibbits, Celina Trudy ART CRITIC Unavailable Unavailable Tibbits, Celina Trudy ART CRITIC Unavailable Unavailable Tibbits, Celina Trudy ART CRITIC Unavailable Unavailable Tibbits, Celina Trudy ART CRITIC Unavailable Unavailable Tibbits, Celina Trudy ART CRITIC Unavailable Unavailable Tibbits, Celina Trudy ART CRITIC Unavailable Unavailable Tibbits, Celina Trudy ART CRITIC Unavailable Unavailable Tibbits, Celina Trudy ART CRITIC Unavailable Unavailable Tibbits, Celina Trudy ART CRITIC Unavailable Unavailable Tibbits, Celina Trudy ART CRITIC Unavailable Unavailable Tibbits, Celina Trudy ART CRITIC Unavailable Unavailable Tibbits, Celina Trudy ART CRITIC Unavailable Unavailable Tibbits, Celina Trudy ART CRITIC Unavailable Unavailable Tibbits, Celina Trudy ART CRITIC Unavailable Unavailable Tibbits, Celina Trudy ART CRITIC Unavailable Unavailable Tibbits, Celina Trudy ART CRITIC Unavailable Unavailable Tibbits, Celina Trudy ART CRITIC Unavailable Unavailable Tibbits, Celina Trudy ART CRITIC Unavailable Unavailable Tibbits, Celina Trudy ART CRITIC Unavailable Unavailable Tibbits, Celina Trudy ART CRITIC Unavailable Unavailable Tibbits, Celina Trudy ART CRITIC Unavailable Unavailable Tibbits, Celina Trudy ART CRITIC Unavailable Unavailable Tibbits, Celina Trudy ART CRITIC Unavailable Unavailable Tibbits, Celina Trudy ART CRITIC Unavailable Unavailable Tibbits, Celina Trudy ART CRITIC Unavailable Unavailable Tibbits, Celina Trudy ART CRITIC Unavailable Unavailable Tibbits, Celina Trudy ART CRITIC Unavailable Unavailable Tibbits, Celina Trudy ART CRITIC Unavailable Unavailable Tibbits, Celina Trudy ART CRITIC Unavailable Unavailable Tibbits, Celina Trudy ART CRITIC Unavailable Unavailable Tibbits, Celina Trudy ART CRITIC Unavailable Unavailable Tibbits, Celina Trudy ART CRITIC Unavailable Unavailable Tibbits, Celina Trudy ART CRITIC Unavailable Unavailable Alexia, L Destini SOCCER REFEREE Unavailable Unavailable [place], L Destini SOCCER REFEREE Unavailable Unavailable Alexia, L Destini SOCCER REFEREE Unavailable Unavailable Alexia, L Destini SOCCER REFEREE Unavailable Unavailable [place], L Destini SOCCER REFEREE Unavailable Unavailable Alexia, L Destini SOCCER REFEREE Unavailable Unavailable [place], L Destini SOCCER REFEREE Unavailable Unavailable [place], L Destini SOCCER REFEREE Unavailable Unavailable Alexia, L Edstini SOCCER REFEREE Unavailable Unavailable [place], L Destini SOCCER REFEREE Unavailable Unavailable Alexia, L Destini SOCCER REFEREE Unavailable Unavailable Alexia, L Destini SOCCER REFEREE Unavailable Unavailable Alexia, L Destini SOCCER REFEREE Unavailable Unavailable Alexia, L Destini SOCCER REFEREE Unavailable Unavailable Alexia, L Destini SOCCER REFEREE Unavailable Unavailable Alexia, L Destini SOCCER REFEREE Unavailable Unavailable [place], L Destini SOCCER REFEREE Unavailable Unavailable Alexia, L Destini SOCCER REFEREE Unavailable Unavailable [place], L Destini SOCCER REFEREE Unavailable Unavailable Alexia, L Destini SOCCER REFEREE Unavailable Unavailable [place], L Destini SOCCER REFEREE Unavailable Unavailable Alexia, L Destini SOCCER REFEREE Unavailable Unavailable Alexia, L Destini SOCCER REFEREE Unavailable Unavailable [place], L Destini SOCCER REFEREE Unavailable Unavailable [place], L Destini SOCCER REFEREE Unavailable Unavailable Alexia, L Destini SOCCER REFEREE Unavailable Unavailable Alexia, L Destini SOCCER REFEREE Unavailable Unavailable [place], L Destini SOCCER REFEREE Unavailable Unavailable [place], L Destini SOCCER REFEREE Unavailable Unavailable Alexia, L Destini SOCCER REFEREE Unavailable Unavailable [place], L Destini SOCCER REFEREE Unavailable Unavailable [place], L Destini SOCCER REFEREE Unavailable Unavailable Alexia, L Destini SOCCER REFEREE Unavailable Unavailable Alexia, L Destini SOCCER REFEREE Unavailable Unavailable Re-disclosure Warning The records that [...] is protected by Article 27-F of the [facility] Public Health law. If you continue you may have access to information: Regarding HIV / AIDS; Provided by facilities licensed or operated by the [facility] Office of Mental Health; or Provided by the [facility] Office for People With Developmental Disabilities. If such information is present, then the following [facility] mandated warning applies: This information has been [...] law may result in a fine or fci sentence or both. A general authorization for [...] ) Unknown Male Problem [facility] ([facility] [place]) Encounters Encounter Providers Location Date Indications Data Source(s ) OutpatientOFFICE/OUTPATIENT VISIT, EST Attender: Trudy jolly [facility] 03/30/2020 12:20:00 PM EST - 03/30/2020 12:20:00 PM ES T Erythema nodosumOther assisted (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Sicca syndrome, unspecified [facility] ([facility]) Erythema nodosum Other assisted (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 Sicca syndrome, unspecified Attender: Sedrick Salazar [facility] 03/20/2020 11:30:00 AM EST - 03/20/2020 11:30:00 AM EST [facility] ([facility]) Attender: Trudy Downing [facility] 03/19/2020 09:13:00 AM EST - 03/19/2020 09:13:00 AM EST [facility] ( [facility]) Attender: Sedrick Salazar MD [facility] 03/19/2020 09:11:00 AM EST - 03/19/2020 09:11:00 AM EST [facility] ([facility]) Outpatient Attender: Mari Nassar 03/01 09:00:00 AM EST [facility] ([facility] ) Attender: Trudy Downing [facility] 12/28/2019 09:45:00 AM EDT - 12/28/2019 09:45:00 AM EDT [facility] ( [facility]) Outpatient Attender: MONTSE ANTON MD [email or web address] 12/16/2019 12:00:[address] 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 Sicca syndrome, unspecified Outpatient Attender: Mari Nassar 09/19 11:20:00 AM EDT MEDENT ([facility] ) Outpatient Attender: DINESH HARTMAN MD Main Office 08/30/2019 10:00:00 AM EDT [facility] ([facility]) Outpatient Attender: Олег Solis/Bee/Juma/Reind l 07/22/2019 09:00:00 AM EDT [facility] ([facility]) Outpatient Attender: Олег Solis/Bee/Juma/Nubiad l 07/06/2019 10:00:00 AM EDT MED[facility] ([facility]) Outpatient Attender: SYDNI NicoleC [facility] 05/20/2019 07:30:00 AM EST [facility] ([facility]) Outpatient Attender: Mari Nassar 05/18 08:20:00 AM EST MEDENT ([facility] ) [facility] [address] [place] [id number] 05/16/2019 12:00:00 AM EST eCW1 ([facility]) Attender: Brian Santos [facility] 05/03/2019 11:42:00 AM EST - 05/03/2019 11:42:00 AM EST [facility] ( [facility]) Outpatient Referrer: Mari OLMOS 04/18/2019 01:13:00 PM EST [facility] Outpatient Referrer: Mari OLMOS 04/06/2019 10:45:00 AM EST [facility] Outpatient Referrer: Mari OLMOS 04/06/2019 10:42:00 AM EST [facility] OFFICE OUTPATIENT NEW 30 MINUTES Attender: Aryan HOLT Ph ysical Therapy 04/06/2019 09:00:00 AM EST [facility] ([facility]) Outpatient Attender: Destini OLMOS Main Office 04/01/2019 07:30:0 0 AM EST [facility] ([facility]) OutpatientOFFICE/OUTPATIENT VISIT, EST Attender: Brian tello MD [facility] 03/25/2019 10:40:00 AM EST - 03/25/2019 10:40:00 AM ES T Other assisted drug therapyErythema nodosumSicca syndrome, unspecified [facility] ([facility]) Other assisted drug therapy Erythema nodosum Sicca syndrome, unspecified Outpatient Attender: Mari Nassar 02/15 09:40:00 AM EST MEDENT ([facility] ) Immunizations Vaccine Date Status Description Data Source(s) INFLUENZA VIRUS VACCINE QUADRIVALENT 2019- (6 MOS AN D UP) 01/12/2020 12:00:00 AM EDT completed [facility] Influenza, injectable, MDCK, preservative free, emma valent 12/28/2019 12:00:00 AM EDT completed Flucelvax [facility] ([facility]) Note: per pt ; Source: Other Provider Medications Medication Brand Name Start Date Product Form Dose Route Admi nistrative Instructions Pharmacy Instructions Status Indications Reaction Description Data Source(s) Prednisone 20 MG Oral Tablet Prednisone 04/04/2020 12:00:00 AM EST ORAL active [facility] ([facility], ) 20 mg 04/04/2020 12:00:00 AM [...] il] [facility] ([facility]) Estrogens, Conjugated ([facility]) 0.625 MG/ML Vaginal Cream [Nora rin] Premarin 03/01/2020 12:00:00 AM EST active MEDENT ([facility]) Hydroxychloroquine Sulfate 200 MG Oral T [...] 04/06/2019 12:00:00 AM EST ORAL active [facility] ([facility] ) 90 mcg/actuation 04/01/2019 12:00:00 AM [...] active [facility] ([facility]) Azithromycin 250 MG Oral Tablet Azithromycin 02/15/2019 12:00:00 AM EST completed [facility] ([facility]) 90 mcg/actuation 02/08/2019 12:00:00 AM EST [...] et by oral route every day [facility] ([facility]) CRANBERRY (unknown strength) cranberry ORAL completed take 2 Tablet by Oral route once [facility] ([facility]) zinc 50 mg tablet zinc 1 {tbl} ORAL completed take 1 tablet by oral route every day [facility] ([facility]) ESTROVEN (unknown strength) soy isofla/blk cohosh/mag bark completed [facility] ([facility]) 30 ACTUAT fluticasone furoate 0.2 MG/ACT UAT / vilanterol 0.025 MG/ACTUAT Dry Powder Inhaler [Breo] Breo Ellipta 200 mcg-25 mcg/dose powder for inhalation Breo Ellipta 200 mcg-25 mcg/dose powder for inhalation 1.00 {puff} RESPIRATORY (INHALATION) completed 30 ACTUAT fluticasone furoate 0.2 MG/ACTUAT / vilanterol 0.025 MG/ACTUAT Dry Powder Inhaler [Breo] [facility] azelastine 0.15 % (205.5 mcg) nasal spray Azelastine h ydrochloride 0.206 MG/ACTUAT Metered Dose Nasal [place] 1.00 spray NASAL completed spray 1 spray by intranasal route 2 times every day in each nostril [facility] ([facility]) Calcium Carbonate 1500 MG Oral Tablet Ca lcium 600 600 mg calcium (1,500 mg) tablet Calcium 600 600 mg calcium (1,500 mg) tablet ORAL completed take 1 by Oral route 2 times every day [facility] ([facility]) Riboflavin 100 MG Oral Tablet Vitamin B-2 100 mg table t Vitamin B-2 100 mg tablet completed [facility] ( [facility]) Estradiol 0.01 MG Vaginal Tablet estradiol 10 mcg vagi nal tablet estradiol 10 mcg vaginal tablet 1.00 {tbl} VAGINAL completed insert 1 tablet by vaginal route 2 times every week [facility] ([facility]) Insurance Providers Payer name Policy type / Coverage type Policy ID Covered republican ID Covered republican's relationship to mi Policy Mi Plan Information [facility] [id number] SP [id number] R O [id number] S [id number] [facility] [id number] [place] [id number] [facility] [id number] SP [id number] [facility] [id number] Commercial Ins urance Co. [id number] UMR [id number] Commercial Insur ance Co. [id number] ANSI-Commercial [id number] ANSI-Commercial [id number] [employer] (Old) Medigap Part B [id number] Self [id number] Umr (New [employer]) Commercial [id number] Self [id number] UMR [facility] [id number] SP [id number] [employer] Medigap Part B [id number] Self [id number] Umr Commercial [id number] Self [id number] [employer] Medigap Part B [id number] Self [id number] Umr Commercial [id number] Self [id number] UMR O [id number] S [id number] [employer] (Old) Medigap Part B [id number] Self [id number] [employer] Commercial [id number] Self [id number] Umr Commercial [id number] Self [id number] [employer] Medigap Part B [id number] Self [id number] UMR F [id number] SELF [id number] [employer] Commercial [id number] Self [id number] [employer] / UMR F [id number] SELF [id number] UMR U [id number] Self [id number] [employer] U [id number] Self [id number] [employer] [id number] SP [id number] [employer] [id number] SP [id number] Umr/Uhc/[employer] (HMO) [id number] Self [id number] [employer] / UMR F [id number] SELF [id number] [employer] (HMO) [id number] Se lf [id number] [employer] Commercial [id number] Self [id number] [employer] (Old) Commercial [id number] Self [id number] [employer] (Old) Commercial [id number] Self [id number] Umr [employer] Ppo Commercial [id number] Self [id number] [employer] [id number] SP [id number] Umr [employer] Ppo Commercial [id number] Self [id number] [employer] [id number] SP [id number] [employer] Commercial [id number] Self [id number] [employer] (HMO) [id number] Se lf [id number] Umr [employer] Ppo Commercial [id number] Self [id number] [employer] PPO O [id number] S [id number] [employer] (HMO) [id number] Se lf [id number] [employer] Ppo Commercial [id number] Self [id number] [employer] F [id number] SELF [id number] [employer] [id number] SP [id number] [employer] F [id number] SELF [id number] [employer] Ppo Commercial [id number] Self [id number] [employer] Ppo Commercial [id number] Self [id number] [employer] Ppo Commercial 200 Self 200 [employer] Commercial Ppo Self Ppo [employer] (HMO) 200 Se lf 200 [employer] PPO 2 [id number] 1 [id number] MULTIPLAN 2 [id number] 1 [id number] SELF PAY 2 UNAVAILABLE 1 UNAVAILA BLE [id number] Problems, Conditions, and Diagnoses Code Display Name Description Problem Type Effective Dates Data Source(s) 607072123 Pure hypercholesterolemia Pure hypercholesterolemia Pr oblem 04/06/2019 12:00:00 AM EST [facility] ([facility] ) Surgeries/Procedures Procedure Description Date [...] ASPIR&/INJECTION MAJOR JT/BURSA 12:00:00 AM EST [facility] ([facility]) Mammogram 04/18/2019 12:00:00 AM EST M EDENT ([facility]) X-Ray Femur Minimum 2 Views 04/06/2019 12:00:00 AM EST [facility] ([facility]) BRNCDILAT RSPSE SPMTRY PRE&POST-BRNCDILAT [...] As sociates) Results ID Date Data Source [id number] 03/30/2020 01:12:00 PM EST [facility] ([facility]) Name Value Range Interpretation Code Description Data Tere rce(s) Supporting Document(s) <0.2 0.0-0.5 CRP [facility] ([facility] ID Date Data Source [id number] 03/30/2020 01:12:00 PM EST [facility] ([facility]) Name Value Range Interpretation Code Description Data Tere rce(s) Supporting Document(s) 1.0 mg/dL 0.6-1.2 CREATININE [facility] ([facility]) 56.4 mL/min/1.73m eGFR Non- A merican [facility] ([facility]) >60 eGFR [facility] ([facility]) ID Date Data Source [id number] 03/30/2020 01:12:00 PM EST [facility] ([facility]) Name Value Range Interpretation Code Description Data Tere rce(s) Supporting Document(s) 22 U/L 15-37 AST [facility] ([facility]) ID Date Data Source [id number] 03/30/2020 01:12:00 PM EST [facility] ([facility]) Name Value Range Interpretation Code Description Data Tere rce(s) Supporting Document(s) 46 U/L 30-65 ALT [facility] ([facility]) ID Date Data Source [id number] 03/30/2020 01:12:00 PM EST [facility] ([facility]) Name Value Range Interpretation Code Description Data Tere rce(s) Supporting Document(s) 4.4 g/dL 3.4-4.4 ALB [facility]) ID Date Data Source [id number] 03/30/2020 01:12:00 PM EST [facility] ([facility]) Name Value Range Interpretation Code Description Data Tere rce(s) Supporting Document(s) 7 mm/Hr 0-20 ESR [facility]) ID Date Data Source [id number] 03/30/2020 01:12:00 PM EST [facility] ([facility]) 8.7 % 2.0-10.0 MONO% [facility] ([facility]) 1.0 % 0.0-4.0 BASO% [facility] ([facility]) 2.4 % 0.0-5.0 EOS% [facility] ([facility]) ID Date Data Source [id number] 03/01/2020 10:49:00 AM EST [facility] ([facility]) Name Value Range Interpretation Code Description Data Tere rce(s) Supporting Document(s) Laboratory test finding (navigational concept) Laboratory test result [facility] ([facility]) ID Date Data Source [id number] 03/01/2020 10:49:00 AM EST [facility] ([facility]) Name Value Range Interpretation Code Description Data Tere rce(s) Supporting Document(s) Cytology report of Cervical or vaginal smear or scrapi ng Cyto stain.thin prep Laboratory test result [facility] ([facility]) HPV, low volume rfx Laboratory test result [facility]) This nucleic acid amplification test det ects fourteen high-risk HPV types (16,18,31,33,35,39,45,51,52,56,58,59,66,68) without differentiation. ID Date Data Source [id number] 03/01/2020 10:49:00 AM EST [facility] ([facility]) Name Value Range Interpretation Code Description Data Tere rce(s) Supporting Document(s) Cytology report of Cervical or vaginal smear or scrapi ng Cyto stain.thin prep Laboratory test result [facility] ([facility]) ID Date Data Source [id number] 02/29/2020 09:18:00 AM EST [facility] ([facility]) Name Value Range Interpretation Code Description Data Tere rce(s) Supporting Document(s) Cholesterol [Mass/volume] in Serum or Plasma 185 mg/dL 131-200 [facility] ([facility]) Triglyceride [Mass/volume] in Serum or Plasma 82 mg/dL 30-150 [facility] ([facility]) Cholesterol in HDL [Mass/volume] in Serum or Plasma 68 mg/dL 35-60 [facility] ([facility]) Cholesterol in LDL [Mass/volume] in Serum or Plasma by calcu lation 101 CALC 50-159 [facility] ([facility]) ID Date Data Source [id number] 02/29/2020 09:18:00 AM EST [facility] ([facility]) Name Value Range Interpretation Code Description Data Tere rce(s) Supporting Document(s) Glucose [Mass/volume] in Serum or Plasma 92 mg/dL 74-99 [facility] ([facility]) 100-125 mg/dL PRE-DIABETES/FASTING >126 mg/dL DIABETES/FASTING Sodium [Moles/volume] in Serum or Plasma 140 meq/L 136-145 [facility] ([facility]) Urea nitrogen [Mass/volume] in Serum or Plasma 17 mg/dL 7-18 [facility] ([facility]) Creatinine 0.7 mg/dL 0.6-1.3 [facility] ([facility]) Chloride [Moles/volume] in Serum or Plasma 102 meq/L 98-107 [facility] ([facility]) Potassium [Moles/volume] in Serum or Plasma 4.7 meq/L 3.5-5.1 [facility] ([facility]) Carbon dioxide, total [Moles/volume] in Serum or Plasma 29 meq/L 21 -32 [facility] ([facility]) Total Bilirubin 0.4 mg/dL 0.2-1.0 [facility] ([facility]) Calcium [Mass/volume] in Serum or Plasma 9.6 mg/dL 8.5-10.1 [facility] ([facility]) Alkaline phosphatase isoenzyme [Units/volume] in Serum or Pl asma 41 mg/dL 46-116 [facility] ([facility]) Aspartate aminotransferase [Enzymatic activity/volume] in Serum or Plasma 19 U/L 15-37 [facility] ([facility] ) Proteinase 3 Ab [Units/volume] in Serum 6.9 g/dL 6.4-8.2 [facility] ([facility]) Albumin [Mass/volume] in Serum or Plasma 4.4 g/dL 3.4-5.0 [facility] ([facility]) Alanine aminotransferase [Enzymatic activity/volume] in Seru m or Plasma 36 U/L 12-78 [facility] ([facility]) Glomerular filtration rate/1.73 sq M pre dicted among blacks [Volume Rate/Area] in Serum or Plasma by Creatinine-based formula (MDRD) Laboratory test result [facility] ([facility]) <content>CHRONIC KIDNEY DISEASE STAGING PER NKF</content>
<content></content>
<content>STAGE I & II GFR >= 60 NORMAL TO MILDLY DECREASED</content>
<content>STAGE III GFR 30-59 MODERATELY DECREASED</content>
<content>STAGE IV GFR 15-29 SEVERELY DECREASED</content>
<content>STAGE V GFR <15 VERY LITTLE GFR LEFT</content>
<content>ESRD GFR <15 ON DIGITAL MEDIA SALES CONSULTANT</content>
<content></content> A/G Ratio 1.76 CALC 1.00-1.90 [facility] ([facility]) Glomerular filtration rate/1.73 sq M pre dicted among non-blacks [Volume Rate/Area] in Serum or Plasma by Creatinine-based formula (MDRD) Laboratory test result [facility] ([facility] ) ID Date Data Source [id number] 02/29/2020 09:18:00 AM EST [facility] ([facility]) Name Value Range Interpretation Code Description Data Tere rce(s) Supporting Document(s) Leukocytes [#/volume] in Blood by Automated count 5.9 x10*3/UL 4.1-10 .9 [facility] ([facility]) Hematocrit [Volume Fraction] of Blood by Automated count 42.1 % 3 7.0-51.0 [facility] ([facility]) Erythrocytes [#/volume] in Blood by Automated count 4.62 x10*6/UL 4.2 0-6.30 [facility] ([facility]) Hemoglobin [Mass/volume] in Blood 14.9 g/dL 12.0-18.0 [facility] ([facility]) MCV 91.0 fL 80.0-97.0 [facility] [facility]) MCH 32.2 pg 26.0-32.0 [facility] ([facility]) Erythrocyte distribution width [Ratio] by Automated count 12.6 % 11.6-13.7 [facility] ([facility]) MCHC 35.4 g/dL 31.0-38.0 [facility]) Platelets [#/volume] in Blood by Automated count 273 x10*3/UL 140-440 [facility] ([facility]) Lymph % 23.3 % 10.0-58.5 [facility]) MPV 7.3 FL 7.8-11.0 [facility]) Neut % 71.1 % 37.0-92.0 [facility]) Mid # 0.4 x10*3/UL 0.1-0.6 [facility] ([facility]) Lymph # 1.3 x10*3/UL 0.6-4.1 [facility] ([facility]) Mid % 5.6 % 1.7-9.3 [facility]) Neut # 4.2 x10*3/UL 2.0-7.8 [facility] ([facility]) ID Date Data Source [id number] 01/23/2020 03:53:00 PM EST [facility] Name Value Range Interpretation Code Description Data Tere rce(s) Supporting Document(s) SARS-CoV-2 (COVID-19) [facility] This lab was ordered by DEVIN Rose and [facility] in Medicine, [facility] and reported by [employer]. ID Date Data Source [id number] 09/23/2019 10:25:00 AM EDT [facility] ([facility]) Name Value Range Interpretation Code Description Data Tere rce(s) Supporting Document(s) <0.2 0.0-0.5 CRP [facility] ([facility]) ID Date Data Source [id number] 09/23/2019 10:25:00 AM EDT [facility] ([facility]) Name Value Range Interpretation Code Description Data Tere rce(s) Supporting Document(s) 56.4 mL/min/1.73m eGFR [facility] ([facility]) 1.0 mg/dL 0.6-1.2 CREATININE [facility] ([facility]) ID Date Data Source [id number] 09/23/2019 10:25:00 AM EDT [facility] ([facility]) Name Value Range Interpretation Code Description Data Tere rce(s) Supporting Document(s) 30 U/L 15-37 AST [facility] ([facility]) ID Date Data Source [id number] 09/23/2019 10:25:00 AM EDT [facility] ([facility]) Name Value Range Interpretation Code Description Data Tere rce(s) Supporting Document(s) 51 U/L 30-65 ALT [facility] ([facility]) ID Date Data Source [id number] 09/23/2019 10:25:00 AM EDT [facility] ([facility]) Name Value Range Interpretation Code Description Data Tere rce(s) Supporting Document(s) 4.6 g/dL 3.4-4.4 Above high normal ALB [facility] ([facility]) ID Date Data Source [id number] 09/23/2019 10:25:00 AM EDT [facility] ([facility]) Name Value Range Interpretation Code Description Data Tere rce(s) Supporting Document(s) 3 mm/Hr 0-20 ESR [facility] ([facility] ID Date Data Source [id number] 09/23/2019 10:25:00 AM EDT [facility] ([facility]) Name Value Range Interpretation Code Description Data Tere rce(s) Supporting Document(s) 4.53 10*6/uL 3.50-5.50 RBC [facility] 6.3 10*3/uL 3.7-10.1 WBC [...] [facility]) ID Date Data Source [id number] 07/27/2019 06:28:29 PM EDT [facility] Name Value Range Interpretation Code Description Data Tere rce(s) Supporting Document(s) ESR 3 mm/h (0-30) [facility] ID Date Data Source [id number] 07/27/2019 06:57:29 PM EDT [facility] Name Value Range Interpretation Code Description Data Tere rce(s) Supporting Document(s) RHEUMATOID FACTOR @ <15 IU/mL (0-15) Laboratory [facility] ID Date Data Source [id number] 08/04/2019 05:55:42 PM EDT [facility] Name Value Range Interpretation Code Description Data Tere rce(s) Supporting Document(s) HEAT SHOCK PROTEIN Laboratory [facility] NegativeReference range: Negative INTERP RETIVE INFORMATION: Heat [...] AIED. Test developed and characteristics determined by [employer]. See Compliance Statement D: [employer]/ Performed by [employer], [address] [place] [id number] [email or web address], Jerry Esqueda MD, Lab. Director ID Date Data Source [id number] 04/18/2019 12:00:[address] [facility] oly Imaging Ann Lepine Anp Patient Name: NIKI [id number] [facility] Date of : 1960[place] [address] Date of Exam: 04/18/2019#: Fax: [phone] EXAM: [...] further medical management is currently recommended at [facility].MLO and CC views of both breasts were performed. There are bilateral breastimplants again noted which appear grossly intact. No mass or architecturaldistortion is seen. No suspicious clusters of microcalcifications are seen.No skin thickening is seen. Implant displaced views are not performed asthere is insufficient tissue.IMPRESSION:BI-RADS Category 2 Benign. No suspicious mass mass or clusters ofmicrocalcifications.This mammogram was read with the assistance of [employer], an FDAapproved computer aided detection system for [...] rce(s) Supporting Document(s) ID Date Data Source [id number] 02/15/2019 10:49:00 AM EST [facility] ([facility]) Name Value Range Interpretation Code Description Data Tere rce(s) Supporting Document(s) Cholesterol [Mass/volume] in Serum or Plasma 195 mg/dL 131-200 [facility] ([facility]) Cholesterol in HDL [Mass/volume] in Serum or Plasma 62 mg/dL 35-60 [facility] ([facility]) Triglyceride [Mass/volume] in Serum or Plasma 89 mg/dL 30-150 [facility] ([facility]) Cholesterol in LDL [Mass/volume] in Serum or Plasma by calcu lation 115 CALC 50-159 [facility] ([facility]) ID Date Data Source [id number] 02/15/2019 10:49:00 AM EST [facility] ([facility]) Name Value Range Interpretation Code Description Data Tere rce(s) Supporting Document(s) Glucose [Mass/volume] in Serum or Plasma 88 mg/dL 74-99 [facility] ([facility]) 100-125 mg/dL PRE-DIABETES/FASTING >126 mg/dL DIABETES/FASTING Urea nitrogen [Mass/volume] in Serum or Plasma 15 mg/dL 7-18 [facility] ([facility]) Creatinine 0.8 mg/dL 0.6-1.3 [facility] ([facility]) Sodium [Moles/volume] in Serum or Plasma 137 meq/L 136-145 [facility] ([facility]) Potassium [Moles/volume] in Serum or Plasma 4.0 meq/L 3.5-5.1 [facility] ([facility]) Carbon dioxide, total [Moles/volume] in Serum or Plasma 29 meq/L 21 -32 [facility] ([facility]) Chloride [Moles/volume] in Serum or Plasma 97 meq/L 98-107 [facility] ([facility]) Alkaline phosphatase isoenzyme [Units/volume] in Serum or Pl asma 49 mg/dL 46-116 [facility] ([facility]) Calcium [Mass/volume] in Serum or Plasma 9.7 mg/dL 8.5-10.1 [facility] ([facility]) Total Bilirubin 0.4 mg/dL 0.2-1.0 [facility] ([facility]) Aspartate aminotransferase [Enzymatic activity/volume] in Serum or Plasma 20 U/L 15-37 [facility] ([facility] ) Albumin [Mass/volume] in Serum or Plasma 4.3 g/dL 3.4-5.0 [facility] ([facility]) Alanine aminotransferase [Enzymatic activity/volume] in Seru m or Plasma 47 U/L 12-78 [facility] ([facility]) Proteinase 3 Ab [Units/volume] in Serum 7.2 g/dL 6.4-8.2 [facility] ([facility]) A/G Ratio 1.48 CALC 1.00-1.90 [facility] ([facility]) Glomerular filtration rate/1.73 sq M pre dicted among non-blacks [Volume Rate/Area] in Serum or Plasma by Creatinine-based formula (MDRD) >= 60 mL/min [facility] ([facility]) Glomerular filtration rate/1.73 sq M pre dicted among blacks [Volume Rate/Area] in Serum or Plasma by Creatinine-based formula (MDRD) >= 60 mL/min [facility] ([facility]) <content>CHRONIC KIDNEY DISEASE STAGING PER NKF</content>
<content></content>
<content>STAGE I & II GFR >= 60 NORMAL TO MILDLY DECREASED</content>
<content>STAGE III GFR 30-59 MODERATELY DECREASED</content>
<content>STAGE IV GFR 15-29 SEVERELY DECREASED</content>
<content>STAGE V GFR <15 VERY LITTLE GFR LEFT</content>
<content>ESRD GFR <15 ON DIGITAL MEDIA SALES CONSULTANT</content>
<content></content> ID Date Data Source [id number] 02/15/2019 10:49:00 AM EST [facility] ([facility]) Name Value Range Interpretation Code Description Data Tere rce(s) Supporting Document(s) Hemoglobin [Mass/volume] in Blood 14.3 g/dL 12.0-18.0 [facility] ([facility]) Erythrocytes [#/volume] in Blood by Automated count 4.59 x10*6/UL 4.2 0-6.30 [facility] ([facility]) Leukocytes [#/volume] in Blood by Automated count 7.1 x10*3/UL 4.1-10 .9 [facility] ([facility]) Hematocrit [Volume Fraction] of Blood by Automated count 42.0 % 3 7.0-51.0 [facility] ([facility]) MCV 91.4 fL 80.0-97.0 [facility] ([facility]) MCH 31.3 pg 26.0-32.0 [facility] ([facility]) MCHC 34.2 g/dL 31.0-38.0 [facility] Erythrocyte distribution width [Ratio] by Automated count 12.9 % 11.6-13.7 [facility] ([facility]) MPV 7.1 FL 7.8-11.0 [facility] [facility] Platelets [#/volume] in Blood by Automated count 260 x10*3/UL 140-440 [facility] ([facility]) Lymph % 18.0 % 10.0-58.5 [facility] [facility] Lymph # 1.2 x10*3/UL 0.6-4.1 [facility] ([facility]) Mid % 5.4 % 1.7-9.3 [facility] [facility] Neut % 76.6 % 37.0-92.0 [facility] ([place] [facility]) Mid # 0.5 x10*3/UL 0.1-0.6 [facility] ([facility]) Neut # 5.4 x10*3/UL 2.0-7.8 [facility] ([facility]) Procedure Social History Code Duration Value [...] smoked [facility] ([facility] ) Caffeine Use Details 03/25/2019 12:00:00 AM EST completed coffee, 2 cups [facility] ([facility]) Vital Signs ID Date Data Source UNK Name Value Range Interpretation Code Description Data Source(s) Body surface area Derived from formula 1.73 m2 1.73 m2 [facility] ([facility], ) Body weight 68.040 kg 68.040 kg [facility] ([facility], ) [place] body weight 120 [lb_av] 120 [lb_av] MED[facility] T ([facility]) Body mass index (BMI) [Ratio] 25.7 kg/m2 25.7 k g/m2 [facility] ([facility]) Body weight 150.00 [lb_av] 150.00 [lb_av] [facility] Body height 64 [in_i] 64 [in_i] [facility] ([facility]) 5'4" Body mass index (BMI) [Ratio] 25.75 kg/m2 Overweight 25.75 kg/m2 [facility] ([facility]) Diastolic blood pressure 82 mm[Hg] 82 mm[Hg] [facility] ([facility]) Systolic blood pressure 122 mm[Hg] 122 mm[Hg] N extGen ([facility]) Body weight 68.039 kg 68.039 kg [facility] ([facility]) Body height 162.56 cm 162.56 cm [facility] Body mass index (BMI) [Ratio] 25.4 kg/m2 25.4 k g/m2 [facility] ([facility]) Oxygen saturation in Arterial blood by Pulse oximetry 98 % 98 % [facility] ([facility]) Body weight 148.00 [lb_av] 148.00 [lb_av] MED[facility] T ([facility]) Body height 64 [in_i] 64 [in_i] [facility] ([facility]) 5'4" Heart rate 86 /min 86 /min [facility] ([facility]) Body mass index (BMI) [Ratio] 25.06 kg/m2 Overweight 25.06 kg/m2 [facility] ([facility]) Diastolic blood pressure 80 mm[Hg] 80 mm[Hg] [facility] ([facility]) Systolic blood pressure 108 mm[Hg] 108 mm[Hg] N extGen ([facility]) Body weight 66.224 kg 66.224 kg [facility] ([facility]) Body height 162.56 cm 162.56 cm [facility] ([facility] Body mass index (BMI) [Ratio] 25.4 kg/m2 25.4 k g/m2 [facility] ([facility]) Oxygen saturation in Arterial blood by Pulse oximetry 97 % 97 % [facility] ([facility]) Body weight 148.00 [lb_av] 148.00 [lb_av] MEDEN T ([facility]) Body height 64 [in_i] 64 [in_i] [facility] ([facility]) 5'4" Heart rate 78 /min 78 /min [facility] ([facility]) Diastolic blood pressure 70 mm[Hg] 70 mm[Hg] [facility] ([facility]) Systolic blood pressure 120 mm[Hg] 120 mm[Hg] M EDENT ([facility]) Body mass index (BMI) [Ratio] 25.4 [...] from formula 1.73 m2 1.73 m2 [facility] ([facility]) Body weight 68.040 kg 68.040 kg [facility] ([facility]) [place] body weight 120 [lb_av] 120 [lb_av] MEDEN T ([facility]) Body mass index (BMI) [Ratio] 25.7 kg/m2 25.7 k g/m2 [facility] ([facility]) Body weight 150.00 [lb_av] 150.00 [lb_av] MED[facility] T ([facility]) Body height 64 [in_i] 64 [in_i] [facility] ([facility]) 5'4" Body weight 68.040 kg 68.040 kg [facility] ([facility]) Body mass index (BMI) [Ratio] 25.7 kg/m2 25.7 k g/m2 [facility] ([facility], ) Body weight 150.00 [lb_av] 150.00 [lb_av] MEDEN T ([facility]) Body height 64 [in_i] 64 [in_i] [facility] ([facility], ) 5'4" Body mass index (BMI) [Ratio] 25.7 kg/m2 25.7 k g/m2 [facility] ([facility]) Body weight 145.00 [lb_av] 145.00 [lb_av] MEDEN T ([facility]) Body height 63 [in_i] 63 [in_i] [facility] ([facility]) 5'3" Body temperature 98.4 [degF] 98.4 [degF] [facility] ([facility]) Body mass index (BMI) [Ratio] 25.7 kg/m2 25.7 k g/m2 [facility] ([facility]) Oxygen saturation in Arterial blood by Pulse oximetry 96 % 96 % [facility] ([facility]) Body weight 150.00 [lb_av] 150.00 [lb_av] MEDEN T ([facility]) Body height 64 [in_i] 64 [in_i] [facility] ([facility]) 5'4" Heart rate 86 /min 86 /min [facility] ([facility]) Diastolic blood pressure 80 mm[Hg] 80 mm[Hg] [facility] ([facility]) Systolic blood pressure 134 mm[Hg] 134 mm[Hg] [facility] Body mass index (BMI) [Ratio] 26.1 [...] [facility] ([facility] 5'4" Body weight 152.25 [lb_av] 152.25 [lb_av] MEDEN T ([facility]) Body mass index (BMI) [Ratio] 25.66 kg/m2 Overweight 25.66 kg/m2 [facility] ([facility]) Diastolic blood pressure 72 mm[Hg] 72 mm[Hg] [facility] ([facility]) Systolic blood pressure 124 mm[Hg] 124 mm[Hg] N extGen ([facility]) Body weight 69.400 kg 69.400 kg [facility] ([facility]) Body height 164.47 cm 164.47 cm [facility] Body mass index (BMI) [Ratio] 25.4 kg/m2 25.4 k g/m2 [facility] ([facility]) Oxygen saturation in Arterial blood by Pulse oximetry 95 % 95 % [facility] ([facility]) Body weight 148.00 [lb_av] 148.00 [lb_av] BRIANDA Grijalva ([facility]) Body height 64 [in_i] 64 [in_i] [facility] ([facility]) 5'4" Body temperature 97.4 [degF] 97.4 [degF] [facility] ([facility]) Heart rate 80 /min 80 /min [facility] ([facility]) Diastolic blood pressure 70 mm[Hg] 70 mm[Hg] [facility] ([facility]) Systolic blood pressure 122 mm[Hg] 122 mm[Hg] M EDDEVON ([facility]) Patient Treatment Plan of Care Planned [...] il] 05/03/2019 12:00:00 AM EST [facility] ([facility]) Hydroxychloroquine Sulfate 200 MG Oral Tablet [[place] il] 11/01/2018 12:00:00 AM EDT [facility] ([facility]) hydrocortisone valerate 2 MG/ML Topical Cream 09/23/2018 12:00:00 A M EDT [facility] ([facility]) 30 ACTUAT fluticasone furoate 0.2 MG/ACT UAT / vilanterol 0.025 MG/ACTUAT Dry Powder Inhaler [Breo] [facility] ([facility] [facility]) CRANBERRY (unknown strength) [facility] ([facility]) Calcium Carbonate 1500 MG Oral Tablet [facility] ([facility]) Riboflavin 100 MG Oral Tablet [facility] ([facility]) zinc 50 mg tablet [facility] azelastine 0.15 % (205.5 mcg) nasal spray [facility] ([facility]) Citalopram 20 MG Oral Tablet [facility] ([facility]) ESTROVEN (unknown strength) [facility] ([facility]) Estradiol 0.01 MG Vaginal Tablet [facility] ([facility])
[2020-04-13 15:55] LABS: BLOOD UREA NITROGEN 8 MG/DL (7-18); CARBON DIOXIDE LEVEL 25 MEQ/L (21-32); CHLORIDE LEVEL 94 MEQ/L (98-107); CK-MB VALUE MASS 2.3 NG/ML (<3.6); CPK CREATINE PHOSPHOKINASE 76 U/L (26-192); CREATININE FOR GFR 0.65 MG/DL (0.55-1.30); GLOMERULAR FILTRATION RATE > 60.0 (>45); GLUCOSE, FASTING 159 MG/DL (70-100); MB/CK RELATIVE INDEX 3.03 (< OR =4); SODIUM LEVEL 127 MEQ/L (136-145); TROPONIN I < 0.02 NG/ML (< 0.10)
[2020-04-13] MEDS: OMEGA-3 1000MG CAPSULE PO SCH ×2 (16:00→20:32)
[2020-04-13 18:31] LABS: BLOOD UREA NITROGEN 9 MG/DL (7-18); CALCIUM LEVEL 8.8 MG/DL (8.8-10.2); CARBON DIOXIDE LEVEL 27 MEQ/L (21-32); CHLORIDE LEVEL 100 MEQ/L (98-107); CREATININE FOR GFR 0.69 MG/DL (0.55-1.30); GLOMERULAR FILTRATION RATE > 60.0 (>45); GLUCOSE, FASTING 104 MG/DL (70-100); POTASSIUM SERUM 4.3 MEQ/L (3.5-5.1); SODIUM LEVEL 132 MEQ/L (136-145)
[2020-04-13] MEDS ORDERED: D5W 1,000 ML IV SCH (18:45)
[2020-04-13 18:49] VITALS: BP 145/78
[2020-04-13 18:50] VITALS: BP 145/78
[2020-04-13 18:51] VITALS: BP_SYST 116; BP_SYST 127; BP_SYST 145; BP_DIAS 68; BP_DIAS 71; BP_DIAS 78
[2020-04-13] MEDS: OMEPRAZOLE 20 MG CAP PO SCH (19:10)
[2020-04-13 20:00] VITALS: BP 136/68
[2020-04-13] MEDS: ADVAIR HFA 230/21MCG INHALER INH SCH (20:00)
[2020-04-13] MEDS: HYDROXYCHLOROQUINE 200 MG TAB PO SCH (20:31)
[2020-04-13] MEDS ORDERED: ROSUVASTATIN 10 MG TAB (CRESTOR) PO SCH (21:00)
[2020-04-13] MEDS ORDERED: MAGNESIUM OXIDE 400 MG TAB (MAG-OX) PO SCH (21:00)
[2020-04-13] MEDS ORDERED: MONTELUKAST 10 MG TAB PO SCH (21:00)
[2020-04-13 22:42] LABS: BLOOD UREA NITROGEN 7 MG/DL (7-18); CALCIUM LEVEL 9.4 MG/DL (8.8-10.2); CARBON DIOXIDE LEVEL 29 MEQ/L (21-32); CHLORIDE LEVEL 99 MEQ/L (98-107); CREATININE FOR GFR 0.69 MG/DL (0.55-1.30); GLOMERULAR FILTRATION RATE > 60.0 (>45); GLUCOSE, FASTING 126 MG/DL (70-100); POTASSIUM SERUM 4.2 MEQ/L (3.5-5.1); SODIUM LEVEL 133 MEQ/L (136-145)
[2020-04-14] VITALS: BP 116/68
[2020-04-14 02:37] LABS: BLOOD UREA NITROGEN 6 MG/DL (7-18); CARBON DIOXIDE LEVEL 24 MEQ/L (21-32); CHLORIDE LEVEL 100 MEQ/L (98-107); CREATININE FOR GFR 0.61 MG/DL (0.55-1.30); GLOMERULAR FILTRATION RATE > 60.0 (>45); GLUCOSE, FASTING 112 MG/DL (70-100); POTASSIUM SERUM 4.1 MEQ/L (3.5-5.1); SODIUM LEVEL 133 MEQ/L (136-145)
[2020-04-14 04:00] VITALS: BP 140/78
[2020-04-14 05:47] LABS: BASO % 0.6 % (0.0-1.0); EOS # 0.1 10^3/uL (0.0-0.5); EOS % 1.3 % (0.0-3.0); HEMATOCRIT 40.5 % (36.0-47.0); HEMOGLOBIN 13.5 g/dl (12.0-15.5); LYMPH % 18.7 % (24.0-44.0); MEAN CORPUSCULAR HEMOGLOBIN 30.8 pg (27.0-33.0); MEAN CORPUSCULAR HGB CONC 33.3 g/dl (32.0-36.5); MEAN CORPUSCULAR VOLUME 92.5 fl (80.0-96.0); MONO % 19.1 % (0.0-5.0); NEUTROPHILS # 3.2 10^3/uL (1.5-8.5); NEUTROPHILS % 59.9 % (36.0-66.0); PLATELET COUNT, AUTOMATED 251 10^3/uL (150-450); RED BLOOD COUNT 4.38 10^6/uL (4.00-5.40); WHITE BLOOD COUNT 5.3 10^3/uL (4.0-10.0)
[2020-04-14 06:13] LABS: BLOOD UREA NITROGEN 7 MG/DL (7-18); CALCIUM LEVEL 9.1 MG/DL (8.8-10.2); CARBON DIOXIDE LEVEL 28 MEQ/L (21-32); CHLORIDE LEVEL 100 MEQ/L (98-107); GLOMERULAR FILTRATION RATE > 60.0 (>45); GLUCOSE, FASTING 111 MG/DL (70-100); POTASSIUM SERUM 4.4 MEQ/L (3.5-5.1); SODIUM LEVEL 132 MEQ/L (136-145)
[2020-04-14] MEDS: ADVAIR HFA 230/21MCG INHALER INH SCH (07:34)
[2020-04-14 07:45] VITALS: BP 137/66
[2020-04-14] MEDS: OMEPRAZOLE 20 MG CAP PO SCH (08:34)
[2020-04-14] MEDS: VITAMIN D 1,000 INTERNATIONAL UNITS TABLET PO SCH (08:34)
[2020-04-14] MEDS: OMEGA-3 1000MG CAPSULE PO SCH ×2 (08:34→16:37)
[2020-04-14] MEDS: HYDROXYCHLOROQUINE 200 MG TAB PO SCH (08:34)
[2020-04-14] MEDS: MULTIVITAMINS/MINERALS THERAP 1 TAB PO SCH (08:34)
--- NOTE | 2020-04-14 08:54 | ECGEPIP ---
[facility] - ED Test Date: 2020-04-13 Pat Name: NIKI HYLTON Department: Room: - Gender: Female Proposal Writer: VALENTINA : 1960 Requested By: Olga Pavon Order Number: [id number] Reading MD: Olga Pavon Measurements Intervals [place] Rate: 68 P: 74 AL: 177 QRS: 4 QRSD: 84 T: 50 QT: 375 QTc: 399 Interpretive Statements SINUS RHYTHM POSSIBLE LEFT ATRIAL ENLARGEMENT NSTTW abnormalities DECREASED RATE 06/25/17 Electronically Signed on 04-14-2020 8:54:18 EST by Olga Pavon
[2020-04-14 11:51] VITALS: BP 135/85
[2020-04-14 12:57] LABS: BLOOD UREA NITROGEN 7 MG/DL (7-18); CALCIUM LEVEL 9.3 MG/DL (8.8-10.2); CARBON DIOXIDE LEVEL 26 MEQ/L (21-32); CHLORIDE LEVEL 96 MEQ/L (98-107); CREATININE FOR GFR 0.69 MG/DL (0.55-1.30); GLOMERULAR FILTRATION RATE > 60.0 (>45); GLUCOSE, FASTING 119 MG/DL (70-100); POTASSIUM SERUM 3.8 MEQ/L (3.5-5.1); SODIUM LEVEL 131 MEQ/L (136-145)
[2020-04-14] MEDS ORDERED: NS 1,000 ML IV SCH (14:00)
[2020-04-14 15:56] VITALS: BP 145/74
[2020-04-14 16:18] LABS: BLOOD UREA NITROGEN 7 MG/DL (7-18); CALCIUM LEVEL 9.2 MG/DL (8.8-10.2); CARBON DIOXIDE LEVEL 27 MEQ/L (21-32); CHLORIDE LEVEL 98 MEQ/L (98-107); CREATININE FOR GFR 0.85 MG/DL (0.55-1.30); GLOMERULAR FILTRATION RATE > 60.0 (>45); GLUCOSE, FASTING 129 MG/DL (70-100); POTASSIUM SERUM 4.3 MEQ/L (3.5-5.1); SODIUM LEVEL 133 MEQ/L (136-145)
[2020-04-14] MEDS ORDERED: MECL12.590 PO (16:29)
--- NOTE | 2020-04-14 16:39 | DS.PDOC ---
Discharge Summary General Date of Admission Apr 13, 2020 at 14:46 Date of Discharge 04/14/2020 Discharge Summary PROCEDURES PERFORMED DURING STAY: [None]. ADMITTING DIAGNOSES / DISCHARGE DIAGNOSES: Hyponatremia - likely 2/2 hypotonic hypovolemic etiology - 2/2 poor oral intake and nausea/vomiting s/p Left ear fullness Menieres disease Migraine headaches Sjogrens disease DLP Recurrent UTI Overactive bladder Chronic hypomagnesemia Vitamin D deficiency DVT prophylaxis COMPLICATIONS/CHIEF COMPLAINT: Weakness HISTORY OF PRESENT ILLNESS: Patient is a 59-year-old female who presented to the emergency room with complaints of weakness. Patient reported that she saw her ENT doctor last week and was prescribed prednisone for 7 days that she has completed 2 days ago noted that she continues to experience weakness. Today she was experiencing nausea and vomiting because her Mnires symptoms had worsened. Patient had one episode of vomiting without blood. In the emergency room, patient was found to be hyponatremic and Hospital services called for admission. Patient has reported that this morning she has had a full resolution of her ear fullness. She denies any N/V, abdominal pain, C/D, or urinary discomfort. HOSPITAL COURSE: Hyponatremia - likely 2/2 hypotonic hypovolemic etiology - 2/2 poor oral intake and nausea/vomiting - Sodium has trended to normal - Urine electrolytes noted - s/p IV fluid hydration - Will have outpatient follow up with PCP / Nephrology within 7 days s/p Left ear fullness - Patient reports resolution of facial fullness / muffled sound of her left ear - Physical without any erythema of the ear canal noted - No signs of system infection - Afebrile - No leukocytosis / heck lactic acid - CT head / CT maxillofacial noted - Discussed with ENT; will have outpatient follow up within 7 days Menieres disease - Patient reports some exacerbation of her symptoms - c/w Meclizine Migraine headaches - Will hold Ketorolac Sjogrens disease - c/w Hydroxychloroquine DLP - c/w Chester 3 / Rosuvastatin - c/w ASA on discharge Recurrent UTI - UA negative Overactive bladder Chronic hypomagnesemia - c/w magnesium supplementation Vitamin D deficiency - c/w supplementation DVT prophylaxis - c/w TEDs/Sequentials DISCHARGE MEDICATIONS: Please see below. ALLERGIES: Please see below. PHYSICAL EXAMINATION ON DISCHARGE: Vitals (See below) General: Sitting up in chair, ambulating in the room, appears very comfortable, AAOx3 HEENT: NC, AT CVS: +S1S2 Lungs: Fair air entry b/l, no appreciated wheezing / rhonchi / rales Abdomen: Soft, ND, NT Extremities: - Edema, - Calf tenderness LABORATORY DATA: Please see below. IMAGING: CT head 04/13: Negative noncontrast head CT. CT maxillofacial noted 04/13: No evidence of paranasal sinus disease or soft tissue mass. No bony destructive lesion is seen. 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 Dystrophic calcifications in the inferior aspect of the right parotid gland. Otherwise negative CXR 04/13: No active disease. ACTIVITY: [As tolerated]. DISCHARGE PLAN: Follow up with PCP, ENT and Nephrology within 7 days Remain compliant with treatment plan and medications Return to the ER if you experience any problems DISPOSITION: Home DISCHARGE CONDITION: [Stable]. TIME SPENT ON DISCHARGE: 35 minutes. Vital Signs/I&Os Vital Signs Date Time Temp Pulse Resp B/P (MAP) Pulse Ox O2 Delivery O2 Flow Rate FiO2 04/14/20 15:56 97.7 88 18 145/74 (97) 96 04/14/20 07:45 Room Air I&O- Last 24 Hours up to 6 AM 04/14/20 06:00 Intake Total 1460 ml Output Total 2150 ml Balance -690 ml Laboratory Data Labs 24H Laboratory Tests 2 04/13/20 17:55: Anion Gap 5L, Glomerular Filtration Rate > 60.0, Lactic Acid Followup at 4 Hours 1.2, Calcium Level 8.8 04/13/20 21:56: Anion Gap 5L, Glomerular Filtration Rate > 60.0, Calcium Level 9.4 04/14/20 01:58: Anion Gap 9, Glomerular Filtration Rate > 60.0, Calcium Level 9.0 04/14/20 05:31: Anion Gap 4L, Glomerular Filtration Rate > 60.0, Calcium Level 9.1, Immature Granulocyte % (Auto) 0.4, Neutrophils (%) (Auto) 59.9, Lymphocytes (%) (Auto) 18.7L, Monocytes (%) (Auto) 19.1H, Eosinophils (%) (Auto) 1.3, Basophils (%) (Auto) 0.6, Neutrophils # (Auto) 3.2, Lymphocytes # (Auto) 1.0L, Monocytes # (Auto) 1.0H, Eosinophils # (Auto) 0.1, Basophils # (Auto) 0.0, Nucleated Red Blood Cells % (auto) 0.0, Magnesium Level 2.0 04/14/20 12:21: Anion Gap 9, Glomerular Filtration Rate > 60.0, Calcium Level 9.3 04/14/20 15:49: Anion Gap 8, Glomerular Filtration Rate > 60.0, Calcium Level 9.2 CBC/BMP Laboratory Tests 04/13/20 17:55 04/13/20 21:56 04/14/20 01:58 04/14/20 05:31 04/14/20 12:21 04/14/20 15:49 Discharge Medications Scheduled Ascorbic Acid (Vitamin C) 250 Mg Tablet, 250 MG PO BID, (Reported) Aspirin (Aspirin EC) 81 Mg Tablet.dr, 81 MG PO DAILY, (Reported) Calcium Carbonate (Calcium) 600 Mg Tablet, 600 MG PO DAILY, (Reported) TAKES AT NOON Cetirizine HCl (Cetirizine HCl) 10 Mg Tablet, 10 MG PO DAILY, (Reported) Cholecalciferol (Vitamin D3) (Vitamin D3) 1,000 Unit Tablet, 3,000 UNITS PO DAILY, (Reported) Fluticasone/Vilanterol (Breo Ellipta 100-25 Mcg INH) 1 Each Blst.w.dev, 1 PUFF INH DAILY, (Reported) Folic Acid/Vit B Complex and C (Super B Complex Tablet) 400 Mcg Tablet, 1 TAB PO DAILY, (Reported) Hydroxychloroquine Sulfate (Hydroxychloroquine Sulfate) 200 Mg Tablet, 300 MG PO DAILY, (Reported) Magnesium Oxide (Magnesium Oxide) 400 Mg Tablet, 400 MG PO QHS, (Reported) Montelukast Sodium (Montelukast Sodium) 10 Mg Tablet, 10 MG PO QHS, (Reported) Multivitamins (Thera M Plus Tablet) 1 Each Tablet, 1 TAB PO DAILY, (Reported) Chester-3/Dha/Epa/Fish Oil (Chester-3 Fish Oil 1,000 mg Sfgl) 1,000 Mg Capsule, 1,000 MG PO TID, (Reported) Rabeprazole Sodium (Rabeprazole Sodium) 20 Mg Tablet.dr, 20 MG PO DAILY, (Reported) TAKES AT NOON Riboflavin (Vitamin B2) (Vitamin B-2) 100 Mg Tablet, 200 MG PO BID, (Reported) TAKES AM/NOON Rosuvastatin Calcium (Rosuvastatin Calcium) 10 Mg Tablet, 10 MG PO QHS, (Reported) Triamcinolone Acetonide (Nasacort) 10.8 Ml [place], 2 SPRAY NARES QHS, (Reported) Ubidecarenone (Co Q-10) 200 Mg Capsule, 200 MG PO BID, (Reported) Zinc (Zinc) 50 Mg Tablet, 50 MG PO DAILY, (Reported) Scheduled PRN Azelastine HCl (Azelastine HCl) 0.15% [place].pump, 2 SPRAY NARES DAILY PRN for CONGESTION, (Reported) Famciclovir (Famciclovir) 250 Mg Tablet, 250 MG PO BID PRN for HERPES FLARE, (Reported) Meclizine HCl (Meclizine HCl) 12.5 Mg Tablet, 12.5 MG PO Q8HP PRN for DIZZINESS Allergies Coded Allergies: amoxicillin (Verified Allergy, Intermediate, rash, 09/06/18) clavulanic acid (Verified Allergy, Intermediate, rash, 09/06/18) Sulfa (Sulfonamide Antibiotics) (Verified Allergy, Mild, rash, 04/13/20) meloxicam (Verified Adverse Reaction, Unknown, ANXIETY, 04/13/20) JAISON RONDON MD Apr 14, 2020 16:39
== END 2020-04-14 18:02 | disposition home or self-care (01) | DRG 641 ==
LOC: EDBD 08:29 → M ED 08:29 → M ED INP 14:46 → M PCU 18:45
PROVIDERS: ADMIT Internal Medicine; ATTEND Internal Medicine
DX: E87.1 Hypo-osmolality and hyponatremia (principal); G43.909 Migraine, unspecified, not intractable, without status migrainosus; E55.9 Vitamin D deficiency, unspecified; E83.42 Hypomagnesemia; M35.00 Sjogren syndrome, unspecified; N32.81 Overactive bladder; E86.1 Hypovolemia; R11.2 Nausea with vomiting, unspecified; Z79.899 Other long term (current) drug therapy; Z79.82 Long term (current) use of aspirin; Z88.2 Allergy status to sulfonamides; Z88.0 Allergy status to penicillin; Z88.8 Allergy status to other drugs, medicaments and biological substances

== ENCOUNTER → 2020-04-19 | Outpatient (REF) | payer OTHER ==
[~2020-04-19] MED LIST changes: +AZEL0.055 NARES; +B-2100TA PO; +BREO1INH INH; +CETI-24 PO; +COQ1200C PO; +D31000TA2 PO; +MAGN400T3 PO; +MECL12.590 PO; +MONT10TA10 PO; -MONT5TAB2 PO; +NASA1SPR NARES; +OMEGCAP4 PO; -RABE1TAB PO; +RABE1TAB4 PO; +ROSU10TA6 PO; +SUPETAB44 PO; +VITA100T39 PO; +VITMTA PO; +ZINC1TAB2 PO
== END ==
LOC: M LAB REF 16:11
PROVIDERS: ATTEND Nurse Practitioner Adult Health
DX: E87.1 Hypo-osmolality and hyponatremia (principal)

== ENCOUNTER → 2020-05-08 | Outpatient (REF) | payer OTHER ==
[2020-05-08 17:45] LABS: SODIUM,RANDOM URINE 35 MEQ/L
[2020-05-08 18:02] LABS: FREE THYROXINE INDEX 3.8 % (1.3-4.8); THYROID STIMULATING HORMONE 0.802 uIU/ML (0.358-3.740); THYROXINE (T4) 10.1 UG/DL (4.5-12.0)
[2020-05-08 18:36] LABS: OSMOLALITY URINE 218 MOSM/KG (500-800)
== END ==
LOC: M LAB REF 16:45
PROVIDERS: ATTEND Internal Medicine Nephrology
DX: E87.1 Hypo-osmolality and hyponatremia (principal)

== ENCOUNTER → 2020-06-12 | Outpatient (REF) | payer OTHER ==
[~2020-06-12] MED LIST changes: +MECL-136 PO; -MECL12.590 PO
[2020-06-12 18:28] LABS: SODIUM,RANDOM URINE 33 MEQ/L
[2020-06-12 18:48] LABS: OSMOLALITY URINE 282 MOSM/KG (50-1400)
== END ==
LOC: M LAB REF 16:53
PROVIDERS: ATTEND Internal Medicine Nephrology
DX: E87.1 Hypo-osmolality and hyponatremia (principal)

== ENCOUNTER → 2020-11-01 | Outpatient (REF) | payer OTHER ==
[2020-11-01 18:47] LABS: MAGNESIUM LEVEL 2.1 MG/DL (1.8-2.4)
[2020-11-02 17:22] LABS: OSMOLALITY URINE 634 MOSM/KG (50-1400)
[2020-11-02 17:44] LABS: SODIUM,RANDOM URINE 40 MEQ/L
== END ==
LOC: M LAB REF 17:03
PROVIDERS: ATTEND Internal Medicine Nephrology
DX: E83.42 Hypomagnesemia (principal)

== ENCOUNTER → 2020-12-21 | Outpatient (CLI) | payer OTHER ==
[~2020-12-21] MED LIST changes: -MAGN400T3 PO; +MAGN400T33 PO
--- NOTE | 2020-12-21 11:47 | REPMRS ---
Patient History The patient states she had a clinical breast exam in February 2020 Patient is postmenopausal. Family history of breast cancer at age 50 or over in sister, breast cancer at age 50 or over and endometrial cancer at age 50 or over in maternal aunt. Saline implants in both breasts, 1995. Benign lumpectomy of the right breast, 1979. Patient states no breast complaints today. Patient has signed MRS History Sheet. Digital Woman Screen Mammo: December 21, 2020 - Exam #: [id number] Bilateral CC and MLO view(s) were taken. Technologist: Genoveva Reyes, Technologist Prior study comparison: April 18, 2019, bilateral digital mammo screening bilat, performed at [facility] [employer]. February 23, 2018, bilateral digital mammo screening bilat, performed at [place]. February 17, 2017, bilateral digital mammo screening bilat, performed at [facility] [employer]. FINDINGS: There are scattered fibroglandular densities. The visualized implant margins are smooth. The Volpara volumetric breast density category is: B. Breast parenchymal density pattern is essentially symmetric. No dominant mass, grouped microcalcification, or architectural distortion is evident on either side.There is very little visible breast tissue overlying the implants. Implant displaced mammographic views were not feasible in this patient on either side. This was the case with her prior exams as well. There is extensive calcification surrounding the saline implant on the right. This appears to have progressed and I am informed by the staff that the right breast is much firmer than the left throughout. This raises the question of capsular contraction or capsular fibrosis on the right.] 3-D tomosynthesis shows no additional findings. No significant changes when compared with prior studies. Assessment: BI-RADS/ACR category 2 mammogram. Benign Findings. Recommendation Routine screening mammogram of both breasts in 1 year (for women over age 40). This patient's [facility] Lifetime Breast Cancer Risk is estimated at 15.9 %. This mammogram was interpreted with the aid of an FDA-approved computer-aided dectection system. Electronically Signed By: Win Mackey MD 12/21/20 [id number]
== END ==
LOC: M WHC 10:48
PROVIDERS: ATTEND Nurse Practitioner Adult Health
DX: Z12.31 Encounter for screening mammogram for malignant neoplasm of breast (principal); Z98.82 Breast implant status; Z80.3 Family history of malignant neoplasm of breast; Z80.49 Family history of malignant neoplasm of other genital organs; R92.1 Mammographic calcification found on diagnostic imaging of breast

== ENCOUNTER → 2021-04-26 | Outpatient (CLI) | payer OTHER ==
[~2021-04-26] MED LIST changes: -MONT10TA10 PO; +MONT10TA97 PO
[2021-04-26 13:44] LABS: BLOOD UREA NITROGEN 16 MG/DL (7-18); CALCIUM LEVEL 9.6 MG/DL (8.8-10.2); CARBON DIOXIDE LEVEL 29 MEQ/L (21-32); CHLORIDE LEVEL 102 MEQ/L (98-107); CREATININE FOR GFR 0.77 MG/DL (0.55-1.30); GLOMERULAR FILTRATION RATE > 60.0 (>45); GLUCOSE, FASTING 84 MG/DL (70-100); POTASSIUM SERUM 4.8 MEQ/L (3.5-5.1); SODIUM LEVEL 138 MEQ/L (136-145)
== END ==
LOC: M PLALAB 10:18
PROVIDERS: ATTEND Surgery
DX: T85.44XA Capsular contracture of breast implant, initial encounter (principal); Z98.82 Breast implant status

== ENCOUNTER → 2021-05-23 | Outpatient (CLI) | payer OTHER ==
[~2021-05-23] MED LIST changes: -D31000TA2 PO; +PROHANCE 279.3MG/ML 15ML VIAL As Ordered ONE; +VITA100093 PO
== END ==
LOC: M RAD 12:40
PROVIDERS: ATTEND Surgery
DX: T85.44XA Capsular contracture of breast implant, initial encounter (principal); X58.XXXA Exposure to other specified factors, initial encounter; Y92.9 Unspecified place or not applicable; Y93.9 Activity, unspecified; Y99.9 Unspecified external cause status; Z98.82 Breast implant status; Y83.1 Surgical operation with implant of artificial internal device as the cause of abnormal reaction of the patient, or of later complication, without mention of misadventure at the time of the procedure
CPT/HCPCS: A9576; C8908

== ENCOUNTER → 2022-04-15 | Outpatient (CLI) | payer OTHER ==
[~2022-04-15] MED LIST changes: -PROHANCE 279.3MG/ML 15ML VIAL As Ordered ONE
== END ==
LOC: M PLALAB 15:42
PROVIDERS: ATTEND Internal Medicine
DX: M51.87 Other intervertebral disc disorders, lumbosacral region (principal); M24.152 Other articular cartilage disorders, left hip; M25.552 Pain in left hip

== ENCOUNTER → 2022-04-30 | Outpatient (CLI) | payer OTHER | LOC: M RAD 11:50 | PROVIDERS: ATTEND Plastic Surgery Surgery of the Hand | DX: T85.44XA Capsular contracture of breast implant, initial encounter (principal); N65.0 Deformity of reconstructed breast; Y83.1 Surgical operation with implant of artificial internal device as the cause of abnormal reaction of the patient, or of later complication, without mention of misadventure at the time of the procedure ==

== ENCOUNTER → 2022-05-13 | Outpatient (CLI) | payer OTHER ==
[~2022-05-13] MED LIST changes: +COQ-100C5 PO; +OMEG10002 PO; +SYMB80INH INH
== END ==
LOC: M LABSMTC 09:30
PROVIDERS: ATTEND Anesthesiology
DX: Z01.812 Encounter for preprocedural laboratory examination (principal)

== ENCOUNTER 2022-05-15 06:03 | Observation (INO) | payer OTHER ==
[~2022-05-15] VITALS: Ht 162.6 cm; Wt 68.9 kg
[2022-05-15] VITALS (7 sets, daily range): BP systolic 93–111; BP diastolic 57–69
[2022-05-15] MEDS ORDERED: CLINDAMYCIN 900 MG in IV 1 EA IV ONE ×2 (06:15→14:00)
[2022-05-15] MEDS ORDERED: LR 1,000 ML IV SCH ×2 (06:30→12:35)
[2022-05-15] MEDS ORDERED: LIDOCAINE 1% SDV 5ML VIAL SC PRN (06:30)
[2022-05-15] MEDS ORDERED: BUPIVACAINE LIPOSOME/PF 1.3% 20ML VIAL (13.3MG/ML)(EXPAREL) As Ordered ONE (07:20)
[2022-05-15] MEDS ORDERED: GENTAMICIN SULF 80MG/2ML VIAL As Ordered ONE (07:21)
[2022-05-15] MEDS ORDERED: BUPIVACAINE HCL 0.25% 10ML VIAL As Ordered ONE (07:21)
[2022-05-15] MEDS ORDERED: MIDAZOLAM INJ 2MG/2ML VIAL As Ordered ONE (07:27)
[2022-05-15] MEDS ORDERED: fentaNYL 250 MCG/5 ML INJECTION As Ordered ONE (07:27)
[2022-05-15] MEDS ORDERED: ROCURONIUM BROMIDE 50MG/5ML VIAL As Ordered ONE ×2 (07:27→08:31)
[2022-05-15] MEDS ORDERED: LIDOCAINE 2% 100MG/5ML SDV (FOR ANES.) As Ordered ONE (07:27)
[2022-05-15] MEDS ORDERED: propofoL 200 MG/20 ML VIAL As Ordered ONE (07:27)
[2022-05-15] MEDS ORDERED: SUGAMMADEX SODIUM 500 MG/5 ML VIAL (BRIDION) As Ordered ONE (08:28)
[2022-05-15] MEDS ORDERED: LACRILUBE (AKWA TEARS) OPHTH OINT 3.5GM As Ordered ONE (08:28)
[2022-05-15] MEDS ORDERED: ePHEDrine SULFATE 25 MG/5 ML(5MG/ML) SYRINGE As Ordered ONE (08:28)
[2022-05-15] MEDS ORDERED: ACETAMINOPHEN 1000MG 100ML IV BAG As Ordered ONE (08:28)
[2022-05-15] MEDS ORDERED: HYDROmorphone HCL 2MG/ML 1ML VIAL As Ordered ONE (08:28)
[2022-05-15] MEDS ORDERED: METOCLOPRAMIDE INJ 10MG/2ML VIAL As Ordered ONE (09:17)
[2022-05-15] MEDS ORDERED: PERCOCET 5MG/325MG TAB PO PRN (12:25)
[2022-05-15] MEDS ORDERED: ONDANSETRON 4MG 2ML VIAL IV PRN ×2 (12:25→12:35)
[2022-05-15] MEDS ORDERED: fentaNYL 100 MCG/2 ML INJECTION IV PRN (12:35)
[2022-05-15] MEDS ORDERED: oxyCODONE 5MG TAB PO PRN (12:35)
[2022-05-15] MEDS ORDERED: HYDROMORPHONE HCL 0.5 MG/ 0.5 ML SYRINGE IV PRN (12:35)
[2022-05-15] MEDS: LR 1,000 ML IV SCH ×2 (13:48→20:33)
[2022-05-15] MEDS: ACETAMINOPHEN TAB 650MG DOSE (2X325MG) PO PRN ×2 (15:01→20:33)
[2022-05-15] MEDS ORDERED: MONTELUKAST 10 MG TAB PO SCH (21:00)
[2022-05-16 02:00] VITALS: BP 116/72
[2022-05-16] MEDS: traMADol 50 MG TAB PO PRN ×2 (03:01→10:39)
[2022-05-16] MEDS: ACETAMINOPHEN TAB 650MG DOSE (2X325MG) PO PRN (05:25)
[2022-05-16 06:11] VITALS: BP 124/74
[2022-05-16] MEDS ORDERED: TRAM50TA2 PO (09:09)
== END 2022-05-16 12:45 | disposition home or self-care (01) ==
LOC: M SDC 06:03 → M MS5PR 06:04
PROVIDERS: ADMIT Plastic Surgery Surgery of the Hand; ATTEND Plastic Surgery Surgery of the Hand
DX: T85.44XA Capsular contracture of breast implant, initial encounter (principal); J45.909 Unspecified asthma, uncomplicated; G47.33 Obstructive sleep apnea (adult) (pediatric); M35.00 Sjogren syndrome, unspecified; E78.5 Hyperlipidemia, unspecified; I25.2 Old myocardial infarction; Z79.82 Long term (current) use of aspirin; Z79.899 Other long term (current) drug therapy; Z88.2 Allergy status to sulfonamides; Z88.0 Allergy status to penicillin; Z88.8 Allergy status to other drugs, medicaments and biological substances
CPT/HCPCS: 19316; 19380; 87070; 87075; 88300; 88304; 96365; 96375; C9290; J0131; J1100; J1170; J1580; J2250; J2405; J2765; J3010; S0020; S0077

== ENCOUNTER → 2024-06-16 | Outpatient (REF) | payer OTHER ==
[~2024-06-16] MED LIST changes: -AZEL0.055; -AZEL0.055 NARES; +AZEL1SPR4; +AZEL1SPR4 NARES; -HYDR200T3 PO; +HYDR200T46 PO; +MONT5TAB7 PO; -ROSU10TA6 PO; +ROSU10TA61 PO; -SING5CHW23 PO; +TRAM50TA2 PO
[2024-06-16 12:28] LABS: INR 0.93; PARTIAL THROMBOPLASTIN TIME 30.7 SECONDS (24.8-34.2); PROTHROMBIN TIME 12.8 SECONDS (12.5-14.5)
== END ==
LOC: M LAB REF 12:11
PROVIDERS: ATTEND Internal Medicine
DX: Z01.810 Encounter for preprocedural cardiovascular examination (principal)